=== PATIENT | male | born 1990 | race Two or more races ===

== ENCOUNTER 2019-06-09 20:39 | Inpatient (IN) | payer SELFPAY ==
[~2019-06-09] VITALS: Ht 177.8 cm; Wt 112.5 kg
--- NOTE | 2019-06-09 22:11 | Emergency Room Report ---
History of Present Illness General Chief Complaint: Upper Respiratory Illness Source: Patient Present Illness HPI Patient is a 28-year-old male presents after increased generalized weakness and cough. He reports having left-sided flank pain. Denies any hematuria or dysuria. Reports having frequent episodes of nonproductive cough with intermittent clear sputum. Reports having some generalized body aches. Denies any past medical history. Patient states that he had been sick since Tuesday.Denies any vomiting or diarrhea. Denies any abdominal pain. Allergies: Coded Allergies: No Known Allergies (Unverified , 06/09/19) Patient History Past Medical History: see triage record Reviewed Nursing Documentation: PMH: Agreed; PSxH: Agreed Nursing Documentation-PMH Past Medical History: No Stated History Review of Systems All Other Systems: negative except mentioned in HPI Physical Exam Vital Signs Date Time Temp Pulse Resp B/P (MAP) Pulse Ox O2 Delivery O2 Flow Rate FiO2 06/09/19 20:43 102.4 140 18 134/82 (99) 95 Room Air Sp02 EP Interpretation: reviewed, normal General Appearance: normal inspection, well appearing, no apparent distress, alert, GCS 15, non-toxic, obese Head: atraumatic ENT: normal ENT inspection, hearing grossly normal, normal voice Neck: normal inspection, full range of motion, supple, no bony tend Respiratory: normal inspection, no respiratory distress, no retraction Cardiovascular #1: no edema, tachycardia Gastrointestinal: normal inspection, normal bowel sounds, non tender, soft, no guarding, no hernia Genitourinary: no CVA tenderness Musculoskeletal: normal inspection, back normal, normal range of motion Neurologic: alert, motor strength/tone normal, director gift III-XII nml as tested, oriented x3, responsive, speech normal, normal inspection Psychiatric: normal inspection, judgement/insight normal, mood/affect normal Medical Decision Making Diagnostic Impression: Primary Impression: Pneumonia Additional Impression: Pleural effusion ER Course Patient presented for shortness of breath and chest pain. Differential diagnosis include was not limited to pneumonia, pulmonary embolism, viral pneumonia, myocardial infarction among others. Because of complexity of patient 's case laboratory tests and imaging studies were ordered. Patient noted to have initial tachycardia with fever. Chest x-ray showed left-sided infiltrate with pleural effusion. Patient was given IV fluids as well as antipyretics. He was given IV antibiotics after blood cultures were obtained. Chest CT was ordered to rule out pulmonary embolism and viral pneumonia. CT chest read by radiology showed loculated left-sided pleural effusion with associated infiltrate. Dr. Lee Fish was contacted for inpatient management. Dr. Fallon was contacted for surgical consult. Labs Test 06/09/19 22:25 White Blood Count 19.0 K/UL (4.8-10.8) Red Blood Count 4.95 M/UL (4.70-6.10) Hemoglobin 14.9 G/DL (14.2-18.0) Hematocrit 45.2 % (42.0-52.0) Mean Corpuscular Volume 91 FL (80-99) Mean Corpuscular Hemoglobin 30.0 PG (27.0-31.0) Mean Corpuscular Hemoglobin Concent 33.0 G/DL (32.0-36.0) Red Cell Distribution Width 12.4 % (11.6-14.8) Platelet Count 347 K/UL (150-450) Mean Platelet Volume 7.7 FL (6.5-10.1) Neutrophils (%) (Auto) % (45.0-75.0) Lymphocytes (%) (Auto) % (20.0-45.0) Monocytes (%) (Auto) % (1.0-10.0) Eosinophils (%) (Auto) % (0.0-3.0) Basophils (%) (Auto) % (0.0-2.0) Differential Total Cells Counted 100 Neutrophils % (Manual) 82 % (45-75) Lymphocytes % (Manual) 7 % (20-45) Monocytes % (Manual) 11 % (1-10) Eosinophils % (Manual) 0 % (0-3) Basophils % (Manual) 0 % (0-2) Band Neutrophils 0 % (0-8) Platelet Estimate Adequate Platelet Morphology Normal Red Blood Cell Morphology Normal Sodium Level 135 MMOL/L (136-145) Potassium Level 3.6 MMOL/L (3.5-5.1) Chloride Level 94 MMOL/L (98-107) Carbon Dioxide Level 29 MMOL/L (21-32) Anion Gap 12 mmol/L (5-15) Blood Urea Nitrogen 8 mg/dL (7-18) Creatinine 1.2 MG/DL (0.55-1.30) Estimat Glomerular Filtration Rate > 60 mL/min (>60) Glucose Level 162 MG/DL (74-106) Lactic Acid Level 1.40 mmol/L (0.4-2.0) Calcium Level 9.3 MG/DL (8.5-10.1) Total Bilirubin 2.4 MG/DL (0.2-1.0) Direct Bilirubin 0.4 MG/DL (0.0-0.3) Aspartate Amino Transf (AST/SGOT) 11 U/L (15-37) Alanine Aminotransferase (ALT/SGPT) < 6 U/L (12-78) Alkaline Phosphatase 69 U/L (46-116) Total Creatine Kinase 105 U/L (26-308) Creatine Kinase MB < 0.5 NG/ML (0.0-3.6) Creatine Kinase MB Relative Index 0.4 Troponin I 0.000 ng/mL (0.000-0.056) Total Protein 8.8 G/DL (6.4-8.2) Albumin 3.3 G/DL (3.4-5.0) Globulin 5.5 g/dL Albumin/Globulin Ratio 0.6 (1.0-2.7) EKG Diagnostic Results Rate: tachycardiac Rhythm: NSR ST Segments: no acute changes Last Vital Signs Date Time Temp Pulse Resp B/P (MAP) Pulse Ox O2 Delivery O2 Flow Rate FiO2 06/09/19 20:43 102.4 140 18 134/82 (99) 95 Room Air Status: unchanged Disposition: ADMITTED INPATIENT Condition: Serious Scripts No Active Prescriptions or Reported Meds Yossi Quintero MD Jun 09, 2019 22:11
[2019-06-09 22:40] LABS: HEMATOCRIT 45.2 % (42.0-52.0); HEMOGLOBIN 14.9 G/DL (14.2-18.0); MEAN CORPUSCULAR VOLUME 91 FL (80-99); PLATELET COUNT 347 K/UL (150-450); RED BLOOD COUNT 4.95 M/UL (4.70-6.10); RED CELL DISTRIBUTION WIDTH 12.4 % (11.6-14.8)
[2019-06-09 23:00] VITALS: BP 126/79
[2019-06-09 23:00] LABS: ANION GAP 12 mmol/L (5-15); BLOOD UREA NITROGEN 8 mg/dL (7-18); CALCIUM 9.3 MG/DL (8.5-10.1); CARBON DIOXIDE 29 MMOL/L (21-32); CHLORIDE 94 MMOL/L (98-107); CREATININE 1.2 MG/DL (0.55-1.30); POTASSIUM 3.6 MMOL/L (3.5-5.1); SODIUM 135 MMOL/L (136-145)
[2019-06-09] MEDS ORDERED: Azithromycin 500 MG in D5W 275 ML IVPB ONE (23:00)
[2019-06-09] MEDS ORDERED: cefTRIAXone 1 GM in NS 55 ML IVPB ONE (23:00)
[2019-06-09] MEDS ORDERED: Omnipaque 350 100ml vial INJ PRN (23:00)
[2019-06-09 23:14] LABS: ALBUMIN 3.3 G/DL (3.4-5.0); ALBUMIN/GLOBULIN RATIO 0.6 (1.0-2.7); ALKALINE PHOSPHATASE 69 U/L (46-116); ASPARTATE AMINO TRANSFERASE 11 U/L (15-37); BILIRUBIN,TOTAL 2.4 MG/DL (0.2-1.0); CKMB < 0.5 NG/ML (0.0-3.6); CREATINE KINASE 105 U/L (26-308)
[2019-06-09 23:18] LABS: ALANINE AMINOTRANSFERASE < 6 U/L (12-78); BILIRUBIN,DIRECT 0.4 MG/DL (0.0-0.3)
--- NOTE | 2019-06-09 23:44 | Diagnostic Imaging Report ---
EXAM: XR Chest, 1 View CLINICAL HISTORY: SOB TECHNIQUE: Frontal view of the chest. COMPARISON: None. FINDINGS: Lungs: The lungs are underexpanded. Patchy opacity and air bronchograms consistent with pneumonia. Pleural space: Clear right hemithorax. No right-sided effusion. Mild to moderate left-sided pleural effusion . No pneumothorax. Heart: Unremarkable. No cardiomegaly. Mediastinum: Unremarkable. Bones/joints: Unremarkable. IMPRESSION: Left lower lobe pneumonia with left effusion as described.
--- NOTE | 2019-06-10 00:32 | Diagnostic Imaging Report ---
EXAM: CT Angiography Chest With Intravenous Contrast CLINICAL HISTORY: CP TECHNIQUE: Axial computed tomographic angiography images of the chest with intravenous contrast using pulmonary embolism protocol. CTDI is 49.4 mGy and DLP is 487.7 mGy-cm. One or more of the following dose reduction techniques were used: automated exposure control, adjustment of the mA and/or kV according to patient size, use of iterative reconstruction technique. MIP reconstructed images were created and reviewed. COMPARISON: None. FINDINGS: Pulmonary arteries: Normal enhancement of the vascular structures were no filling defect to suggest pulmonary embolus or aortic dissection. Normal aorta with no aneurysmal dilatation. Aorta: No acute findings. No thoracic aortic aneurysm. Lungs: Lung ibarra reveal minimal posterior subpleural scarring versus atelectasis otherwise normal right hemithorax. Pleural space: There is a loculated left-sided pleural effusion with left lower lobe consolidation and air bronchograms consistent with pneumonia. There is left posterior, left paraspinal, subpleural atelectasis or mass seen on images 104 through 124. Remainder of the left lung field including left upper lobe are clear. Heart: Unremarkable. No cardiomegaly. No significant pericardial effusion. No evidence of RV dysfunction. Bones/joints: No acute fracture. No dislocation. Soft tissues: Unremarkable. Lymph nodes: Unremarkable. No enlarged lymph nodes. Upper abdomen: Diffuse fatty liver. Diverticulosis of the colon with no signs of diverticulitis. The remainder of the visualized upper abdominal structures are unremarkable. IMPRESSION: 1. No pulmonary embolus or aortic dissection. 2. Loculated left-sided pleural effusion with left lower lobe infiltrate and associated areas of atelectasis along the subpleural spaces, difficult to exclude a mass. Follow-up with CT in 3-4 months following treatment recommended to evaluate resolution. 3. Diffuse fatty liver. Diverticulosis with no signs of diverticulitis.
[2019-06-10] MEDS ORDERED: Vancomycin 1.5gm/NS Premix 275 ML IVPB SCH (00:45)
[2019-06-10] MEDS ORDERED: Vancomycin 1.5gm vial IVPB ONE (00:56)
[2019-06-10 03:00] VITALS: BP 123/91
[2019-06-10 05:00] VITALS: BP 119/74
[2019-06-10] MEDS ORDERED: Albuterol/Ipratropium 3ml neb HHN PRN ×2 (07:45)
[2019-06-10] MEDS ORDERED: DiphenhydrAMINE 25mg Tab ORAL PRN (07:45)
[2019-06-10] MEDS ORDERED: HYDROcodone/Acetamin 5/325 tab ORAL PRN (07:45)
[2019-06-10 08:00] VITALS: BP 134/79
[2019-06-10 09:29] LABS: HEMATOCRIT 40.8 % (42.0-52.0); MEAN CORPUSCULAR VOLUME 88 FL (80-99); PLATELET COUNT 334 K/UL (150-450); RED BLOOD COUNT 4.62 M/UL (4.70-6.10); RED CELL DISTRIBUTION WIDTH 10.9 % (11.6-14.8); WHITE BLOOD COUNT 16.7 K/UL (4.8-10.8)
[2019-06-10] MEDS: Heparin 5000 units/ml inj SUBQ SCH ×2 (09:37→21:00)
[2019-06-10] MEDS: Vancomycin 1.25gm/NS Premix q24h IVPB SCH ×2 (09:39→17:10)
[2019-06-10 12:00] VITALS: BP 138/77
--- NOTE | 2019-06-10 12:43 | Consultation ---
History of Present Illness General Date patient seen: Jun 10, 2019 Reason for Hospitalization: Upper Respiratory Illness Present Illness HPI This is a pleasant 28-year-old male who had a upper respiratory infection in May 2019 and since has persistent productive cough presented to emergency room at [facility] complaining of left-sided chest and back pain. In ED CT scan performed identified pneumonia with loculated collection. Admitted further care management. Surgery called to evaluate. Patient seen, patient evaluated, chart reviewed. Allergies: Coded Allergies: No Known Allergies (Unverified , 06/09/19) Medication History No Active Prescriptions or Reported Meds Patient History History Provided By: Patient, PMD Healthcare decision maker Resuscitation status Full Code Advanced Directive on File Past Medical/Surgical History Past Medical/Surgical History: (1) Pleural effusion (2) Pneumonia Review of Systems Review of Symptoms General ROS: no weight loss or fever Psychological ROS: no depression or mood changes, no memory loss Ophthalmic ROS: no visual changes or eye irritation ENT ROS: no nasal congestion, hearing loss, dizziness Allergy and Immunology ROS: no allergic symptoms or urticaria Hematological and Lymphatic ROS: no swollen glands, unusual bleeding or bruising Endocrine ROS: no polyuria, polydipsia, weight changes, temperature intolerance Respiratory ROS: no cough, shortness of breath, or wheezing Cardiovascular ROS: no chest pain or dyspnea on exertion Gastrointestinal ROS: denies abdominal pain, bright red blood in stool. Musculoskeletal ROS: no myalgias or arthralgias Neurological ROS: no TIA or stroke symptoms Dermatological ROS: no new or changing skin lesions, rashes or pruritis Physical Exam Physical Exam General appearance: alert, cooperative, no distress, appears stated age Head: Normocephalic, without obvious abnormality, atraumatic Eyes: conjunctivae/corneas clear. PERRL, EOM's intact. Fundi benign Throat: Lips, mucosa, and tongue normal. Teeth and gums normal Neck: supple, symmetrical, trachea midline, no adenopathy, thyroid: not enlarged, symmetric, no tenderness/mass/nodules, no carotid bruit and no JVD Lungs: clear to auscultation bilaterally Heart: regular rate and rhythm, S1, S2 normal, no murmur, click, rub or gallop Abdomen: soft, non-tender. Bowel sounds normal. No masses, no organomegaly Extremities: extremities normal, atraumatic, no cyanosis or edema Pulses: 2+ and symmetric Skin: Skin color, texture, turgor normal. No rashes or lesions Neurologic: Grossly normal Last 24 Hour Vital Signs Date Time Temp Pulse Resp B/P (MAP) Pulse Ox O2 Delivery O2 Flow Rate FiO2 06/10/19 12:00 96.6 103 19 138/77 (97) 98 06/10/19 11:40 135 06/10/19 09:00 Room Air 06/10/19 08:00 97.6 102 18 134/79 (97) 96 06/10/19 07:59 115 06/10/19 06:49 111 06/10/19 06:00 Room Air 06/10/19 06:00 98.4 101 18 119/74 94 Room Air 06/10/19 05:00 98.4 101 18 119/74 94 Room Air 06/10/19 03:00 99.4 82 18 123/91 95 Room Air 06/09/19 23:25 100.0 06/09/19 23:00 100.8 18 126/79 94 Room Air 06/09/19 21:30 140 18 Room Air 06/09/19 20:43 102.4 140 18 134/82 (99) 95 Room Air Intake and Output 06/09/19 06/10/19 19:00 07:00 Intake Total 120 ml Balance 120 ml Intake Oral 120 ml Laboratory Tests Test 06/09/19 22:25 06/10/19 09:00 White Blood Count 19.0 K/UL (4.8-10.8) H 16.7 K/UL (4.8-10.8) H Red Blood Count 4.95 M/UL (4.70-6.10) 4.62 M/UL (4.70-6.10) L Hemoglobin 14.9 G/DL (14.2-18.0) 14.0 G/DL (14.2-18.0) L Hematocrit 45.2 % (42.0-52.0) 40.8 % (42.0-52.0) L Mean Corpuscular Volume 91 FL (80-99) 88 FL (80-99) Mean Corpuscular Hemoglobin 30.0 PG (27.0-31.0) 30.2 PG (27.0-31.0) Mean Corpuscular Hemoglobin Concent 33.0 G/DL (32.0-36.0) 34.2 G/DL (32.0-36.0) Red Cell Distribution Width 12.4 % (11.6-14.8) 10.9 % (11.6-14.8) L Platelet Count 347 K/UL (150-450) 334 K/UL (150-450) Mean Platelet Volume 7.7 FL (6.5-10.1) 6.8 FL (6.5-10.1) Neutrophils (%) (Auto) % (45.0-75.0) % (45.0-75.0) Lymphocytes (%) (Auto) % (20.0-45.0) % (20.0-45.0) Monocytes (%) (Auto) % (1.0-10.0) % (1.0-10.0) Eosinophils (%) (Auto) % (0.0-3.0) % (0.0-3.0) Basophils (%) (Auto) % (0.0-2.0) % (0.0-2.0) Differential Total Cells Counted 100 Neutrophils % (Manual) 82 % (45-75) H Pending Lymphocytes % (Manual) 7 % (20-45) L Pending Monocytes % (Manual) 11 % (1-10) H Eosinophils % (Manual) 0 % (0-3) Basophils % (Manual) 0 % (0-2) Band Neutrophils 0 % (0-8) Platelet Estimate Adequate Pending Platelet Morphology Normal Pending Red Blood Cell Morphology Normal Sodium Level 135 MMOL/L (136-145) L Potassium Level 3.6 MMOL/L (3.5-5.1) Chloride Level 94 MMOL/L (98-107) L Carbon Dioxide Level 29 MMOL/L (21-32) Anion Gap 12 mmol/L (5-15) Blood Urea Nitrogen 8 mg/dL (7-18) Creatinine 1.2 MG/DL (0.55-1.30) Estimat Glomerular Filtration Rate > 60 mL/min (>60) Glucose Level 162 MG/DL (74-106) H Lactic Acid Level 1.40 mmol/L (0.4-2.0) Calcium Level 9.3 MG/DL (8.5-10.1) Total Bilirubin 2.4 MG/DL (0.2-1.0) H Direct Bilirubin 0.4 MG/DL (0.0-0.3) H Aspartate Amino Transf (AST/SGOT) 11 U/L (15-37) L Alanine Aminotransferase (ALT/SGPT) < 6 U/L (12-78) L Alkaline Phosphatase 69 U/L (46-116) Total Creatine Kinase 105 U/L (26-308) Creatine Kinase MB < 0.5 NG/ML (0.0-3.6) Creatine Kinase MB Relative Index 0.4 Troponin I 0.000 ng/mL (0.000-0.056) Total Protein 8.8 G/DL (6.4-8.2) H Albumin 3.3 G/DL (3.4-5.0) L Globulin 5.5 g/dL Albumin/Globulin Ratio 0.6 (1.0-2.7) L Pro-B-Type Natriuretic Peptide 19 pg/mL (0-125) Microbiology Date/Time Source Procedure Growth Status 06/09/19 22:25 Nasal Nares - Final Complete 06/09/19 22:25 Nasal Nares - Final Complete Height (Feet): 5 Height (Inches): 10.00 Weight (Pounds): 254 Medications Current Medications Medications (Trade) Dose Ordered Sig/Thiago Route PRN Reason Start Time Stop Time Status Last Admin Dose Admin Acetaminophen (Tylenol) 650 mg Q6H PRN ORAL Mild Pain/Temp > 100.5 06/10/19 07:45 07/10/19 07:44 Acetaminophen/ Hydrocodone Bitart ([place] 5/325) 1 tab Q6H PRN ORAL For severe Pain 06/10/19 07:45 06/17/19 07:44 Albuterol/ Ipratropium (Albuterol/ Ipratropium) 3 ml Q6HRT PRN HHN Shortness of Breath 06/10/19 07:45 06/15/19 07:44 Azithromycin 500 mg/Dextrose 275 ml @ 275 mls/hr Q24H IV 06/10/19 22:00 06/16/19 22:59 Ceftriaxone Sodium 1 gm/ Dextrose 55 ml @ 110 mls/hr Q24H IVPB 06/10/19 21:00 06/17/19 20:59 Diphenhydramine HCl (Benadryl) 25 mg Q6H PRN ORAL itching 06/10/19 07:45 07/10/19 07:44 Heparin Sodium (Porcine) (Heparin 5000 units/ml) 5,000 units EVERY 12 HOURS SUBQ 06/10/19 09:00 07/10/19 08:59 06/10/19 09:37 Iohexol (Omnipaque 350 100ml) 100 ml NOW PRN INJ Radiology Procedure 06/09/19 23:00 06/11/19 22:49 Metronidazole 100 ml @ 100 mls/hr Q8H IVPB 06/10/19 12:00 06/17/19 11:59 06/10/19 11:44 Ondansetron HCl (Zofran) 4 mg Q6H PRN IVP Nausea & Vomiting 06/10/19 07:45 07/10/19 07:44 Vancomycin HCl (Vanco rx to dose) 1 ea DAILY MISC 06/10/19 09:00 07/10/19 08:59 06/10/19 09:00 Vancomycin/Sodium Chloride 275 ml @ 183.333 mls/hr Q8H IVPB 06/10/19 09:00 06/15/19 08:59 06/10/19 09:39 Assessment/Plan Problem List: (1) Pleural effusion Assessment & Plan: Pulmonary arteries: Normal enhancement of the vascular structures were no filling defect to suggest pulmonary embolus or aortic dissection. Normal aorta with no aneurysmal dilatation. Aorta: No acute findings. No thoracic aortic aneurysm. Lungs: Lung ibarra reveal minimal posterior subpleural scarring versus atelectasis otherwise normal right hemithorax. Pleural space: There is a loculated left-sided pleural effusion with left lower lobe consolidation and air bronchograms consistent with pneumonia. There is left posterior, left paraspinal, subpleural atelectasis or mass seen on images 104 through 124. Remainder of the left lung field including left upper lobe are clear. Heart: Unremarkable. No cardiomegaly. No significant pericardial effusion. No evidence of RV dysfunction. Bones/joints: No acute fracture. No dislocation. Soft tissues: Unremarkable. Lymph nodes: Unremarkable. No enlarged lymph nodes. Upper abdomen: Diffuse fatty liver. Diverticulosis of the colon with no signs of diverticulitis. The remainder of the visualized upper abdominal structures are unremarkable. IMPRESSION: 1. No pulmonary embolus or aortic dissection. 2. Loculated left-sided pleural effusion with left lower lobe infiltrate and associated areas of atelectasis along the subpleural spaces, difficult to exclude a mass. Follow-up with CT in 3-4 months following treatment recommended to evaluate resolution. 3. Diffuse fatty liver. Diverticulosis with no signs of diverticulitis. ICD Codes: J90 - Pleural effusion, not elsewhere classified SNOMED: [id number] (2) Pneumonia Assessment & Plan: IV antibiotics Okay for diet CT reviewed personally Case discussed with patient and medical teams We will plan for radiological sampling/drainage of left-sided effusion if unable to will plan for chest tube placement Thank you will follow with recommendations ICD Codes: J18.9 - Pneumonia, unspecified organism SNOMED: [id number] Jeet Fallon Jun 10, 2019 12:43
[2019-06-10 13:41] LABS: APPEARANCE,URINE SLIGHTLY CLOUDY; BILIRUBIN, URINE 1+ (NEGATIVE); COLOR,URINE BROWN; GLUCOSE, URINE (UA) NEGATIVE (NEGATIVE); KETONES,URINE 2+ (NEGATIVE); NITRITE,URINE NEGATIVE (NEGATIVE); PH,URINE 6 (4.5-8.0); PROTEIN,URINE 2+ (NEGATIVE); UROBILINOGEN,URINE 8 MG/DL (0.0-1.0)
[2019-06-10 13:53] LABS: LEUKOCYTE ESTERASE ,URINE TRACE (NEGATIVE)
[2019-06-10] MEDS: NS 250 ML IV SCH ×4 (15:10→15:33)
--- NOTE | 2019-06-10 15:57 | History & Physical ---
History and Physical History & Physicial History and Physical HPI Patient is a 28-year-old male presents after increased generalized weakness and cough, left-sided pleuritic chest and flank pain. Denies any hematuria or dysuria. Reports having frequent episodes of nonproductive cough with intermittent clear sputum. Reports having some generalized body aches. Denies any past medical history. Patient states that he had been sick since Tuesday.Denies any vomiting or diarrhea. Denies any abdominal pain. Denies travel history. No hemoptysis. Allergies: No Known Allergies Past Medical History: No Stated History All Other Systems: negative except mentioned in HPI FH: NC SH: NC ROS: Negative aside from above Physical Exam Vital SignsNoted Date Time Temp Pulse Resp B/P (MAP) Pulse Ox O2 Delivery O2 Flow Rate FiO2 06/09/19 20:43 102.4 140 18 134/82 (99) 95 Room Air General Appearance: normal inspection, well appearing, no apparent distress, alert, GCS 15, non-toxic, obese Head: atraumatic ENT: normal ENT inspection, hearing grossly normal, normal voice Neck: normal inspection, full range of motion, supple, no bony tend Respiratory: normal inspection, lungs clear, reducedl breath sounds LLZ, no respiratory distress, no retraction, no wheezing Cardiovascular : regular rate, rhythm, HS1, HS2 normal, no edema Gastrointestinal: normal inspection, normal bowel sounds, non tender, soft, no guarding, no hernia Genitourinary: no CVA tenderness Musculoskeletal: normal inspection, back normal, normal range of motion Neurologic: alert, motor strength/tone normal, pillowcase turner III-XII nml as tested, oriented x3, responsive, speech normal, normal inspection Impression: Pneumonia Pleural effusion - possibly loculated on CT Tachycardia - sinus on EKG Plan: IV AB O2 PRN Incentive spirometer Thoracentesis Surgical Consultation for possible chest tube Monitor labs Cardiology consult given intermittent tachycardia PPX Monitor labs Labs Test 06/09/19 22:25 White Blood Count 19.0 K/UL (4.8-10.8) Red Blood Count 4.95 M/UL (4.70-6.10) Hemoglobin 14.9 G/DL (14.2-18.0) Hematocrit 45.2 % (42.0-52.0) Mean Corpuscular Volume 91 FL (80-99) Mean Corpuscular Hemoglobin 30.0 PG (27.0-31.0) Mean Corpuscular Hemoglobin Concent 33.0 G/DL (32.0-36.0) Red Cell Distribution Width 12.4 % (11.6-14.8) Platelet Count 347 K/UL (150-450) Mean Platelet Volume 7.7 FL (6.5-10.1) Neutrophils (%) (Auto) % (45.0-75.0) Lymphocytes (%) (Auto) % (20.0-45.0) Monocytes (%) (Auto) % (1.0-10.0) Eosinophils (%) (Auto) % (0.0-3.0) Basophils (%) (Auto) % (0.0-2.0) Differential Total Cells Counted 100 Neutrophils % (Manual) 82 % (45-75) Lymphocytes % (Manual) 7 % (20-45) Monocytes % (Manual) 11 % (1-10) Eosinophils % (Manual) 0 % (0-3) Basophils % (Manual) 0 % (0-2) Band Neutrophils 0 % (0-8) Platelet Estimate Adequate Platelet Morphology Normal Red Blood Cell Morphology Normal Sodium Level 135 MMOL/L (136-145) Potassium Level 3.6 MMOL/L (3.5-5.1) Chloride Level 94 MMOL/L (98-107) Carbon Dioxide Level 29 MMOL/L (21-32) Anion Gap 12 mmol/L (5-15) Blood Urea Nitrogen 8 mg/dL (7-18) Creatinine 1.2 MG/DL (0.55-1.30) Estimat Glomerular Filtration Rate > 60 mL/min (>60) Glucose Level 162 MG/DL (74-106) Lactic Acid Level 1.40 mmol/L (0.4-2.0) Calcium Level 9.3 MG/DL (8.5-10.1) Total Bilirubin 2.4 MG/DL (0.2-1.0) Direct Bilirubin 0.4 MG/DL (0.0-0.3) Aspartate Amino Transf (AST/SGOT) 11 U/L (15-37) Alanine Aminotransferase (ALT/SGPT) < 6 U/L (12-78) Alkaline Phosphatase 69 U/L (46-116) Total Creatine Kinase 105 U/L (26-308) Creatine Kinase MB < 0.5 NG/ML (0.0-3.6) Creatine Kinase MB Relative Index 0.4 Troponin I 0.000 ng/mL (0.000-0.056) Total Protein 8.8 G/DL (6.4-8.2) Albumin 3.3 G/DL (3.4-5.0) Globulin 5.5 g/dL Albumin/Globulin Ratio 0.6 (1.0-2.7) EKG: ST CT Angio: No PE, Left consolidation, effusion Moody Dowd MD Jun 10, 2019 15:57
[2019-06-10 16:00] VITALS: BP 140/75
[2019-06-10 20:00] VITALS: BP 133/81
[2019-06-10] MEDS: NS w/KCl 20mEq 1000ml 1,000 ML IV SCH (21:19)
[2019-06-10] MEDS: cefTRIAXone 1 GM in D5W 55 ML IVPB SCH (21:19)
[2019-06-10] MEDS: Azithromycin 500 MG in D5W 275 ML IV SCH (22:12)
[2019-06-11] VITALS: BP 121/78
[2019-06-11] MEDS: Vancomycin 1.25gm/NS Premix q24h IVPB SCH ×3 (00:37→16:59)
--- NOTE | 2019-06-11 02:30 | Consultation ---
DATE OF CONSULTATION: 06/10/2019 CARDIOLOGY CONSULTATION CONSULTING PHYSICIAN: Moody López M.D. REQUESTING PHYSICIANS: 1. Lee Fish M.D. 2. Moody Dowd M.D. REASON FOR CONSULTATION: Tachycardia. HISTORY OF PRESENT ILLNESS: This is a 28-year-old male, presented to the hospital with cough and weakness as well as chest pain. He described it as left-sided and sharp and associated with his coughing spells. He denied any nausea, vomiting, or abdominal pain. He has had generalized body aches. He has been sick for five to six days. Concern has been raised over a rapid heart rate. PAST MEDICAL HISTORY: Otherwise unremarkable. ALLERGIES: None. MEDICATIONS: None. FAMILY HISTORY: Noncontributory. SOCIAL HISTORY: Negative for smoking, alcohol, or substance abuse. REVIEW OF SYSTEMS: No history of rheumatic heart disease, cardiac arrhythmias, or congenital heart disease. PHYSICAL EXAMINATION: VITAL SIGNS: Blood pressure 134/82, heart rate 140, respiratory rate 18, temperature 102.4, and room air oxygen saturation 95%. HEENT: Normocephalic and atraumatic. Conjunctivae are pink. Oropharynx is clear. NECK: Supple. LUNGS: Clear. CARDIAC: Regular rhythm. Rapid rate. Normal S1 and S2. ABDOMEN: Soft and nontender. EXTREMITIES: No edema. LABORATORY AND DIAGNOSTIC DATA: CT angiogram of the chest was negative for pulmonary embolus, but revealed left lower lobe consolidation with possibly loculated effusion. White count 19 and hemoglobin 14.9. BUN 8, creatinine 1.2, potassium 3.6, sodium 136, bicarbonate 29, and glucose 162. Troponin negative. Albumin 3.3. EKG with sinus tachycardia and no acute abnormalities otherwise. IMPRESSION: 1. Sepsis. 2. Pneumonia with parapneumonic effusion. 3. Secondary sinus tachycardia. 4. Fevers. 5. Hypovolemia and dehydration. PLAN: 1. Volume support. 2. Antimicrobials. 3. 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 4. DVT prophylaxis. 5. No role for antiarrhythmics. Moody López M.D. DR: LAURITA JOB#: [id number] CC:
[2019-06-11] MEDS: NS w/KCl 20mEq 1000ml 1,000 ML IV SCH ×3 (03:47→20:49)
[2019-06-11 04:00] VITALS: BP 137/76
[2019-06-11 08:00] VITALS: BP 137/76
[2019-06-11 08:12] LABS: BASOPHILS % (AUTO) 0.7 % (0.0-2.0); EOSINOPHILS % (AUTO) 0.4 % (0.0-3.0); HEMATOCRIT 36.5 % (42.0-52.0); HEMOGLOBIN 12.5 G/DL (14.2-18.0); LYMPHOCYTES % (AUTO) 5.3 % (20.0-45.0); MEAN CORPUSCULAR VOLUME 89 FL (80-99); MONOCYTES % (AUTO) 10.3 % (1.0-10.0); NEUTROPHILS % (AUTO) 83.3 % (45.0-75.0); PLATELET COUNT 275 K/UL (150-450); RED BLOOD COUNT 4.07 M/UL (4.70-6.10); RED CELL DISTRIBUTION WIDTH 11.4 % (11.6-14.8); WHITE BLOOD COUNT 17.4 K/UL (4.8-10.8)
--- NOTE | 2019-06-11 08:28 | General Progress Note ---
Assessment/Plan Assessment/Plan: tachycardia loculated pleural effusion pneumonia leukocytosis possible sepsis PLAN iv antibiotics monitor Ct q 3 months follow up cultures ID evaluation impression, plan, and exam edited and reviewed in detail care discussed with RN Subjective Allergies: Coded Allergies: No Known Allergies (Unverified , 06/09/19) Subjective care noted cards appreciated Objective Last 24 Hour Vital Signs Date Time Temp Pulse Resp B/P (MAP) Pulse Ox O2 Delivery O2 Flow Rate FiO2 06/11/19 08:00 134 06/11/19 08:00 97.2 135 18 137/76 (96) 95 06/11/19 04:00 98.4 114 20 137/76 (96) 96 06/11/19 04:00 105 06/11/19 01:00 98.6 06/11/19 00:00 124 06/11/19 00:00 101.7 143 20 121/78 (92) 95 06/10/19 21:00 Room Air 06/10/19 20:05 127 20 98 Room Air 21 06/10/19 20:00 98.6 130 20 133/81 (98) 94 06/10/19 20:00 159 06/10/19 16:10 127 06/10/19 16:00 98.6 135 20 140/75 (96) 96 06/10/19 12:00 96.6 103 19 138/77 (97) 98 06/10/19 11:40 135 06/10/19 09:00 Room Air Intake and Output 06/10/19 06/11/19 19:00 07:00 Intake Total 640 ml 120 ml Output Total 1500 ml Balance 640 ml -1380 ml Intake Oral 640 ml 120 ml Output Urine Total 1500 ml # Voids 5 4 Laboratory Tests 06/10/19 09:00: White Blood Count 16.7H, Red Blood Count 4.62L, Hemoglobin 14.0L, Hematocrit 40.8L, Mean Corpuscular Volume 88, Mean Corpuscular Hemoglobin 30.2, Mean Corpuscular Hemoglobin Concent 34.2, Red Cell Distribution Width 10.9L, Platelet Count 334, Mean Platelet Volume 6.8, Neutrophils (%) (Auto) , Lymphocytes (%) (Auto) , Monocytes (%) (Auto) , Eosinophils (%) (Auto) , Basophils (%) (Auto) , Differential Total Cells Counted 100, Neutrophils % ( Manual) 86H, Lymphocytes % (Manual) 7L, Monocytes % (Manual) 5, Eosinophils % ( Manual) 0, Basophils % (Manual) 0, Band Neutrophils 2, Platelet Estimate Adequate, Platelet Morphology Normal, Red Blood Cell Morphology Normal, Pro-B- Type Natriuretic Peptide 19 06/11/19 06:54: White Blood Count 17.4H, Red Blood Count 4.07L, Hemoglobin 12.5L, Hematocrit 36.5L, Mean Corpuscular Volume 89, Mean Corpuscular Hemoglobin 30.6, Mean Corpuscular Hemoglobin Concent 34.2, Red Cell Distribution Width 11.4L, Platelet Count 275, Mean Platelet Volume 7.2, Neutrophils (%) (Auto) 83.3H, Lymphocytes (%) (Auto) 5.3L, Monocytes (%) (Auto) 10.3H, Eosinophils (%) (Auto) 0.4, Basophils (%) (Auto) 0.7, Pro-B-Type Natriuretic Peptide [Pending], Erythrocyte Sedimentation Rate [Pending], Prothrombin Time [Pending], Prothromb Time International Ratio [Pending], Activated Partial Thromboplast Time [Pending ], Sodium Level [Pending], Potassium Level [Pending], Chloride Level [Pending], Carbon Dioxide Level [Pending], Blood Urea Nitrogen [Pending], Creatinine [ Pending], Estimat Glomerular Filtration Rate [Pending], Glucose Level [Pending] , Calcium Level [Pending], Total Bilirubin [Pending], Aspartate Amino Transf ( AST/SGOT) [Pending], Alanine Aminotransferase (ALT/SGPT) [Pending], Alkaline Phosphatase [Pending], Troponin I [Pending], C-Reactive Protein, Quantitative [ Pending], Total Protein [Pending], Albumin [Pending], Globulin [Pending] Height (Feet): 5 Height (Inches): 10.00 Weight (Pounds): 254 Objective WDWN NAD reduced breath sounds bilaterally without rhonchi or wheeze S1S2RR tachy without MRG NABS nontender no HSM no CCE nonfocal Lee Fish MD Jun 11, 2019 08:28
[2019-06-11 08:30] LABS: INR 1.1 (0.9-1.1)
[2019-06-11 08:35] LABS: ALANINE AMINOTRANSFERASE 18 U/L (12-78); ALBUMIN 2.2 G/DL (3.4-5.0); ALBUMIN/GLOBULIN RATIO 0.4 (1.0-2.7); ALKALINE PHOSPHATASE 59 U/L (46-116); ANION GAP 12 mmol/L (5-15); ASPARTATE AMINO TRANSFERASE 12 U/L (15-37); BLOOD UREA NITROGEN 6 mg/dL (7-18); CALCIUM 8.7 MG/DL (8.5-10.1); CARBON DIOXIDE 25 MMOL/L (21-32); CHLORIDE 101 MMOL/L (98-107); POTASSIUM 3.3 MMOL/L (3.5-5.1); SODIUM 138 MMOL/L (136-145)
[2019-06-11] MEDS: Heparin 5000 units/ml inj SUBQ SCH ×2 (09:00→21:00)
[2019-06-11] MEDS ORDERED: Lidocaine 1% Plain 30 ml INJ ONE (11:00)
[2019-06-11 12:00] VITALS: BP 150/79
--- NOTE | 2019-06-11 12:04 | Surgery Progress Note ---
Surgery Progress Note Subjective Additional Comments Leukocytosis States that he feels better today no nausea vomiting fever chills otherwise comfortable Objective Last 24 Hour Vital Signs Date Time Temp Pulse Resp B/P (MAP) Pulse Ox O2 Delivery O2 Flow Rate FiO2 06/11/19 08:25 Room Air 06/11/19 08:00 134 06/11/19 08:00 97.2 135 18 137/76 (96) 95 06/11/19 04:00 98.4 114 20 137/76 (96) 96 06/11/19 04:00 105 06/11/19 01:00 98.6 06/11/19 00:00 124 06/11/19 00:00 101.7 143 20 121/78 (92) 95 06/10/19 21:00 Room Air 06/10/19 20:05 127 20 98 Room Air 21 06/10/19 20:00 98.6 130 20 133/81 (98) 94 06/10/19 20:00 159 06/10/19 16:10 127 06/10/19 16:00 98.6 135 20 140/75 (96) 96 I&O Intake and Output 06/10/19 06/11/19 19:00 07:00 Intake Total 640 ml 120 ml Output Total 1500 ml Balance 640 ml -1380 ml Intake Oral 640 ml 120 ml Output Urine Total 1500 ml # Voids 5 4 Cardiovascular: RSR Respiratory: clear Abdomen: soft, flat, non-tender, present bowel sounds Extremities: no edema, no tenderness, no cyanosis Laboratory Tests Test 06/11/19 06:54 White Blood Count 17.4 K/UL (4.8-10.8) H Red Blood Count 4.07 M/UL (4.70-6.10) L Hemoglobin 12.5 G/DL (14.2-18.0) L Hematocrit 36.5 % (42.0-52.0) L Mean Corpuscular Volume 89 FL (80-99) Mean Corpuscular Hemoglobin 30.6 PG (27.0-31.0) Mean Corpuscular Hemoglobin Concent 34.2 G/DL (32.0-36.0) Red Cell Distribution Width 11.4 % (11.6-14.8) L Platelet Count 275 K/UL (150-450) Mean Platelet Volume 7.2 FL (6.5-10.1) Neutrophils (%) (Auto) 83.3 % (45.0-75.0) H Lymphocytes (%) (Auto) 5.3 % (20.0-45.0) L Monocytes (%) (Auto) 10.3 % (1.0-10.0) H Eosinophils (%) (Auto) 0.4 % (0.0-3.0) Basophils (%) (Auto) 0.7 % (0.0-2.0) Erythrocyte Sedimentation Rate 67 MM/HR (0-15) H Prothrombin Time 11.3 SEC (9.30-11.50) Prothromb Time International Ratio 1.1 (0.9-1.1) Activated Partial Thromboplast Time 39 SEC (23-33) H Sodium Level 138 MMOL/L (136-145) Potassium Level 3.3 MMOL/L (3.5-5.1) L Chloride Level 101 MMOL/L (98-107) Carbon Dioxide Level 25 MMOL/L (21-32) Anion Gap 12 mmol/L (5-15) Blood Urea Nitrogen 6 mg/dL (7-18) L Creatinine 1.0 MG/DL (0.55-1.30) Estimat Glomerular Filtration Rate > 60 mL/min (>60) Glucose Level 102 MG/DL (74-106) Calcium Level 8.7 MG/DL (8.5-10.1) Total Bilirubin 1.0 MG/DL (0.2-1.0) Aspartate Amino Transf (AST/SGOT) 12 U/L (15-37) L Alanine Aminotransferase (ALT/SGPT) 18 U/L (12-78) Alkaline Phosphatase 59 U/L (46-116) Troponin I 0.000 ng/mL (0.000-0.056) C-Reactive Protein, Quantitative 42.4 mg/dL (0.00-0.90) H Pro-B-Type Natriuretic Peptide 29 pg/mL (0-125) Total Protein 7.1 G/DL (6.4-8.2) Albumin 2.2 G/DL (3.4-5.0) L Globulin 4.9 g/dL Albumin/Globulin Ratio 0.4 (1.0-2.7) L Plan Problems: (1) Pleural effusion Assessment & Plan: Pulmonary arteries: Normal enhancement of the vascular structures were no filling defect to suggest pulmonary embolus or aortic dissection. Normal aorta with no aneurysmal dilatation. Aorta: No acute findings. No thoracic aortic aneurysm. Lungs: Lung ibarra reveal minimal posterior subpleural scarring versus atelectasis otherwise normal right hemithorax. Pleural space: There is a loculated left-sided pleural effusion with left lower lobe consolidation and air bronchograms consistent with pneumonia. There is left posterior, left paraspinal, subpleural atelectasis or mass seen on images 104 through 124. Remainder of the left lung field including left upper lobe are clear. Heart: Unremarkable. No cardiomegaly. No significant pericardial effusion. No evidence of RV dysfunction. Bones/joints: No acute fracture. No dislocation. Soft tissues: Unremarkable. Lymph nodes: Unremarkable. No enlarged lymph nodes. Upper abdomen: Diffuse fatty liver. Diverticulosis of the colon with no signs of diverticulitis. The remainder of the visualized upper abdominal structures are unremarkable. IMPRESSION: 1. No pulmonary embolus or aortic dissection. 2. Loculated left-sided pleural effusion with left lower lobe infiltrate and associated areas of atelectasis along the subpleural spaces, difficult to exclude a mass. Follow-up with CT in 3-4 months following treatment recommended to evaluate resolution. 3. Diffuse fatty liver. Diverticulosis with no signs of diverticulitis. (2) Pneumonia Assessment & Plan: IV antibiotics Okay for diet CT reviewed personally Case discussed with patient and medical teams We will plan for radiological sampling/drainage of left-sided effusion if unable to will plan for chest tube placement Discussed with radiology plan for aspiration drain placement today Thank you will follow with recommendations Jeet Fallon Jun 11, 2019 12:04
--- NOTE | 2019-06-11 13:16 | Diagnostic Imaging Report ---
Indication: Dyspnea Comparison: 06/09/2019 A single view chest radiograph was obtained. Findings: There is evidence of increased left pleural effusion. Based on the appearance the effusion is almost certainly loculated. The heart is normal in size. Interstitial densities are present bilaterally within the lungs. IMPRESSION: Evidence of a increased left loculated pleural effusion. Possible interstitial edema. Correlate clinically
[2019-06-11 15:53] VITALS: BP 136/68
[2019-06-11 20:00] VITALS: BP 135/82
[2019-06-11] MEDS: cefTRIAXone 1 GM in D5W 55 ML IVPB SCH (21:03)
[2019-06-11] MEDS: Azithromycin 500 MG in D5W 275 ML IV SCH (21:57)
[2019-06-12] VITALS (18 sets, daily range): BP systolic 114–156; BP diastolic 68–101
[2019-06-12] MEDS: Vancomycin 1.25gm/NS Premix q24h IVPB SCH ×3 (00:16→17:14)
[2019-06-12] MEDS: NS w/KCl 20mEq 1000ml 1,000 ML IV SCH ×3 (02:47→18:02)
--- NOTE | 2019-06-12 04:15 | Progress Note ---
DATE: 06/11/2019 CARDIOLOGY PROGRESS NOTE SUBJECTIVE: The patient continues to have tachycardia, sinus rhythm, congestion, and some shortness of breath. OBJECTIVE: VITAL SIGNS: Temperature up to 101.7 last night ____ blood pressure 137/76, pulse 135, respirations 18. LUNGS: Bilateral breath sounds. Rhonchi. CARDIAC: Regular rhythm. Rapid rate. Normal S1 and S2. ABDOMEN: Soft. EXTREMITIES: No edema. LABORATORY DATA: White count 17 and hemoglobin 12.5. Sodium 138 and potassium 3.3. Lactic acid normal. BUN 6, creatinine 1, troponin 0, albumin 2.2. IMPRESSION: 1. Sepsis. No clinical signs of pulmonary venous congestion. 2. Left lower lobe infiltrate with loculated pleural effusion. 3. Secondary sinus tachycardia. 4. Hypovolemia. 5. Dehydration. 6. Severe protein-calorie malnutrition. PLAN: 1. Antimicrobials. 2. Respiratory hygiene. 3. Possible drainage of pleural effusion. 4. No antiarrhythmic therapy. 5. Maintain adequate hydration. 6. Antipyretics as needed. Moody López M.D. DR: HALEIGH JOB#: [id number] CC:
--- NOTE | 2019-06-12 08:45 | General Progress Note ---
Assessment/Plan Assessment/Plan: tachycardia loculated pleural effusion pneumonia leukocytosis possible sepsis PLAN iv antibiotics continue as is consider thoracic evaluation if not improved monitor Ct q 3 months follow up cultures ID evaluation impression, plan, and exam edited and reviewed in detail care discussed with RN Subjective Allergies: Coded Allergies: No Known Allergies (Unverified , 06/09/19) Subjective care noted cards appreciated Objective Last 24 Hour Vital Signs Date Time Temp Pulse Resp B/P (MAP) Pulse Ox O2 Delivery O2 Flow Rate FiO2 06/12/19 08:00 96.6 116 20 135/77 (96) 94 06/12/19 05:07 97.8 06/12/19 04:00 101.8 123 20 142/79 (100) 96 06/12/19 04:00 122 06/12/19 00:00 98.1 115 20 140/86 (104) 96 06/12/19 00:00 107 06/11/19 21:00 Room Air 06/11/19 20:00 129 06/11/19 20:00 98.6 125 20 135/82 (99) 95 06/11/19 18:41 130 20 97 Room Air 21 06/11/19 15:53 96.8 123 18 136/68 (90) 95 06/11/19 15:08 128 06/11/19 12:00 138 06/11/19 12:00 98.1 96 18 150/79 (102) 97 Intake and Output 06/11/19 06/12/19 19:00 07:00 Intake Total 1485.000 ml 550 ml Output Total 1300 ml Balance 185.000 ml 550 ml Intake Oral 710 ml IV Total 775.000 ml Other 550 ml Output Urine Total 1300 ml # Voids 1 5 Laboratory Tests 06/11/19 16:20: Vancomycin Level Trough 15.1H Height (Feet): 5 Height (Inches): 10.00 Weight (Pounds): 254 Objective WDWN NAD reduced breath sounds bilaterally without rhonchi or wheeze S1S2RR tachy without MRG NABS nontender no HSM no CCE nonfocal Lee Fish MD Jun 12, 2019 08:45
--- NOTE | 2019-06-12 09:33 | Pre-Procedure Note/Attestation ---
Pre-Procedure Note/Attestation Complete Prior to Procedure Planned Procedure: left Procedure Narrative: Pleural drain placement Indications for Procedure Pre-Operative Diagnosis: Pleural effusion or empyema Attestation I attest that I discussed the nature of the procedure; its benefits; risks and complications; and alternatives (and the risks and benefits of such alternatives ), prior to the procedure, with the patient (or the patient's legal automobile sales representative). I attest that, if there was a reasonable possibility of needing a blood transfusion, the patient (or the patient's legal automobile sales representative) was given the [facility] standardized written summary, pursuant to the Markel Isaias Blood Safety Act ([place] Health and Safety Code # 1645, as amended). I attest that I re-evaluated the patient just prior to the surgery and that there has been no change in the patient's H&P, except as documented below: Ryan Artis MD Jun 12, 2019 09:33
[2019-06-12] MEDS ORDERED: Lidocaine 1% Plain 30 ml INJ SCH (09:45)
--- NOTE | 2019-06-12 10:47 | Brief Operative Note ---
Immediate Post Operative Note Operative Note Pre-op Diagnosis: Pleural effusion or empyema Procedure: CT guided L chest drain placement Post-op Diagnosis: same as pre-op Surgeon: Poonam Pino Anesthesia: local Specimen: yes - 70 ml cloudy yellow fluid sent to lab Complications: none Condition: stable Fluids: none Drains: other - 8 F pigtail Implant(s) used?: No Ryan Pino MD Jun 12, 2019 10:47
[2019-06-12] MEDS: Heparin 5000 units/ml inj SUBQ SCH ×2 (11:24→21:00)
--- NOTE | 2019-06-12 13:08 | Surgery Progress Note ---
Surgery Progress Note Subjective Additional Comments no acute events cxr noted ct guided drain today Objective Last 24 Hour Vital Signs Date Time Temp Pulse Resp B/P (MAP) Pulse Ox O2 Delivery O2 Flow Rate FiO2 06/12/19 13:00 99.5 124 19 122/75 (91) 97 06/12/19 12:30 97.5 110 20 124/75 (91) 97 06/12/19 12:00 96.4 119 20 131/73 (92) 98 06/12/19 11:45 97.2 119 21 129/68 (88) 98 06/12/19 11:30 96.4 113 23 122/78 (93) 98 06/12/19 11:15 96.5 115 20 125/79 (94) 97 06/12/19 11:00 96.3 124 22 126/79 (95) 98 06/12/19 10:37 120 29 148/93 (111) 99 06/12/19 10:32 121 32 148/101 (117) 99 06/12/19 10:27 125 39 151/96 (114) 100 06/12/19 10:22 123 41 156/99 (118) 100 06/12/19 10:17 124 41 147/97 (114) 99 06/12/19 09:52 126 20 2.0 06/12/19 09:00 Room Air 06/12/19 08:00 108 06/12/19 08:00 96.6 116 20 135/77 (96) 94 06/12/19 05:07 97.8 06/12/19 04:00 101.8 123 20 142/79 (100) 96 06/12/19 04:00 122 06/12/19 00:00 98.1 115 20 140/86 (104) 96 06/12/19 00:00 107 06/11/19 21:00 Room Air 06/11/19 20:00 129 06/11/19 20:00 98.6 125 20 135/82 (99) 95 06/11/19 18:41 130 20 97 Room Air 21 06/11/19 15:53 96.8 123 18 136/68 (90) 95 06/11/19 15:08 128 I&O Intake and Output 06/11/19 06/12/19 19:00 07:00 Intake Total 1485.000 ml 550 ml Output Total 1300 ml Balance 185.000 ml 550 ml Intake Oral 710 ml IV Total 775.000 ml Other 550 ml Output Urine Total 1300 ml # Voids 1 5 Cardiovascular: RSR Respiratory: clear Abdomen: soft, flat, non-tender, present bowel sounds Extremities: no edema, no tenderness, no cyanosis Laboratory Tests Test 06/11/19 16:20 Vancomycin Level Trough 15.1 ug/mL (5.0-12.0) H Plan Problems: (1) Pleural effusion Assessment & Plan: Pulmonary arteries: Normal enhancement of the vascular structures were no filling defect to suggest pulmonary embolus or aortic dissection. Normal aorta with no aneurysmal dilatation. Aorta: No acute findings. No thoracic aortic aneurysm. Lungs: Lung ibarra reveal minimal posterior subpleural scarring versus atelectasis otherwise normal right hemithorax. Pleural space: There is a loculated left-sided pleural effusion with left lower lobe consolidation and air bronchograms consistent with pneumonia. There is left posterior, left paraspinal, subpleural atelectasis or mass seen on images 104 through 124. Remainder of the left lung field including left upper lobe are clear. Heart: Unremarkable. No cardiomegaly. No significant pericardial effusion. No evidence of RV dysfunction. Bones/joints: No acute fracture. No dislocation. Soft tissues: Unremarkable. Lymph nodes: Unremarkable. No enlarged lymph nodes. Upper abdomen: Diffuse fatty liver. Diverticulosis of the colon with no signs of diverticulitis. The remainder of the visualized upper abdominal structures are unremarkable. IMPRESSION: 1. No pulmonary embolus or aortic dissection. 2. Loculated left-sided pleural effusion with left lower lobe infiltrate and associated areas of atelectasis along the subpleural spaces, difficult to exclude a mass. Follow-up with CT in 3-4 months following treatment recommended to evaluate resolution. 3. Diffuse fatty liver. Diverticulosis with no signs of diverticulitis. (2) Pneumonia Assessment & Plan: IV antibiotics Okay for diet CT reviewed personally Case discussed with patient and medical teams We will plan for radiological sampling/drainage of left-sided effusion if unable to will plan for chest tube placement Discussed with radiology plan for aspiration drain placement today Thank you will follow with recommendations Jeet Fallon Jun 12, 2019 13:08
[2019-06-12] MEDS ORDERED: NS 275ml ONE (15:21)
[2019-06-12] MEDS ORDERED: Tubing IV Secondary IV ONE (15:21)
--- NOTE | 2019-06-12 16:18 | Diagnostic Imaging Report ---
Indication: Status post pleural drain placement Technique: One view of the chest Comparison: 06/11/2019 Findings: Interim placement of a pigtail drainage catheter in the left pleural space. No pneumothorax. Large loculated left pleural effusion is essentially unchanged. Right lung pleural space remain clear Impression: Interim left pleural drainage catheter placement. No radiographically evident complication
--- NOTE | 2019-06-12 18:00 | Consultation ---
DATE OF CONSULTATION: 06/12/2019 INFECTIOUS DISEASES CONSULTATION CONSULTING PHYSICIAN: Ishan Foster M.D. REFERRING PHYSICIAN: Lee Fish M.D. REASON FOR CONSULTATION: Pneumonia. HISTORY OF PRESENTING ILLNESS: This is a 28-year-old gentleman with no significant past medical history, who comes in with cough and shortness of breath. He underwent a thoracentesis for loculated pleural effusion and an Infectious Diseases consultation has been obtained for antibiotics. PAST MEDICAL HISTORY: Nothing significant. MEDICATIONS: As an inpatient, he is on lidocaine patch, ceftriaxone, azithromycin, potassium, vancomycin, Flagyl, subcutaneous heparin, albuterol ipratropium, Tylenol, [place], Zofran, Benadryl. ALLERGIES: No known drug allergies. SOCIAL HISTORY: He used to be a smoker. He does not smoke anymore. He drinks alcohol socially. No history of drug use. FAMILY HISTORY: Noncontributory. REVIEW OF SYSTEMS: RESPIRATORY: No fever or chills. His cough is improved. He has shortness of breath that is improving. No chest pain. CARDIAC: No chest pain. No palpitation. No dizziness. No syncope. GASTROINTESTINAL: No nausea. No vomiting. No abdominal pain or diarrhea. PHYSICAL EXAMINATION: VITAL SIGNS: Temperature of 96.6, T-max of 101.8, pulse of 120, respiratory 29, blood pressure 148/93, and O2 saturation of 99%. HEENT: Pupils equally reactive to light and accommodation. Mouth appears clean without thrush. NECK: Supple. No adenopathy. No JVD. CARDIOVASCULAR: Regular rate and rhythm. No murmurs. LUNGS: Clear to auscultation bilaterally. No crackles. No wheezes. ABDOMEN: Soft and nontender. No organomegaly. EXTREMITIES: No cyanosis, no clubbing, no edema. Left chest catheter noted. LABORATORY AND DIAGNOSTIC DATA: White count 17.4, hemoglobin 12.5, hematocrit 36.5, MCV 89, and platelet count of 275,000. Sodium 138, potassium 3.3, chloride 101, bicarb 25, BUN 6, creatinine 1, glucose 102, and calcium 8.7. Total bilirubin 1. AST 12, ALT 18, and alkaline phosphatase 59. C-reactive protein of 42. Total protein 7.1. Albumin 2.2. UA showing 2 to 4 white cells. Sputum showing normal shadi. Blood cultures are negative from June 09, 2019. June 10, 2019, blood cultures are negative. Chest x-ray is showing increased left-sided loculated pleural effusion, possible interstitial edema noted. The CT angiogram of the chest showing no pulmonary embolism or dissection, loculated left-sided pleural effusion with left lower lobe infiltrate and associated areas of atelectasis, diffuse fatty liver, diverticulosis without diverticulitis noted. ASSESSMENT: 1. This is a 28-year-old gentleman with no significant past medical history, who comes in with cough and shortness of breath and is found to have a left-sided pneumonia with loculated pleural effusion. He has undergone thoracentesis. Cultures are pending. We would like to rule out empyema as a possibility. 2. Pneumonia. 3. Leukocytosis. PLAN: 1. Continue vancomycin, cefepime, and Flagyl. 2. Discontinue azithromycin. 3. We will follow up cultures and adjust antibiotics accordingly. I would like to thank, Dr. Fish, for this consultation. Ishan Foster M.D. DR: ALLYN JOB#: [id number] CC: Lee Fish M.D.; Fax#: [phone]
[2019-06-12] MEDS: cefTRIAXone 1 GM in D5W 55 ML IVPB SCH (21:39)
[2019-06-13] VITALS: BP 114/68
[2019-06-13] MEDS: Vancomycin 1.25gm/NS Premix q24h IVPB SCH ×3 (00:14→17:10)
--- NOTE | 2019-06-13 03:00 | Progress Note ---
DATE: 06/12/2019 SUBJECTIVE: The patient continues to have congestion, sinus tachycardia, stable blood pressure parameters, on IV antimicrobials and bronchodilators. PHYSICAL EXAMINATION: LUNGS: Bilateral breath sounds. Rhonchi and rales at the left base. CARDIAC: Regular rhythm. Rapid rate. Normal S1, S2. ABDOMEN: Soft. EXTREMITIES: Trace edema. LABORATORY DATA: Laboratories pending. Cultures negative. Chest x-ray today with left pleural drainage catheter with persistent effusion. IMPRESSION: 1. Possible empyema. 2. Pneumonia. 3. Sepsis. 4. Sinus tachycardia. 5. Leukocytosis. 6. Hypokalemia. 7. Severe protein-calorie malnutrition. PLAN: Antimicrobials. Drainage catheter. Replace electrolytes. Continue hydration. Antipyretics. May need thoracic surgery for chest tube. Continue cardiac monitoring and DVT prophylaxis. Moody López M.D. DR: HAYLIE JOB#: [id number] CC:
[2019-06-13] MEDS: NS w/KCl 20mEq 1000ml 1,000 ML IV SCH ×3 (03:38→21:22)
[2019-06-13 04:00] VITALS: BP 128/83
[2019-06-13 07:19] LABS: BASOPHILS % (AUTO) 0.7 % (0.0-2.0); EOSINOPHILS % (AUTO) 0.8 % (0.0-3.0); HEMATOCRIT 36.3 % (42.0-52.0); HEMOGLOBIN 12.1 G/DL (14.2-18.0); LYMPHOCYTES % (AUTO) 10.8 % (20.0-45.0); MEAN CORPUSCULAR VOLUME 91 FL (80-99); MONOCYTES % (AUTO) 8.8 % (1.0-10.0); NEUTROPHILS % (AUTO) 78.9 % (45.0-75.0); PLATELET COUNT 315 K/UL (150-450); RED BLOOD COUNT 4.01 M/UL (4.70-6.10); RED CELL DISTRIBUTION WIDTH 11.9 % (11.6-14.8)
[2019-06-13 07:37] LABS: ANION GAP 14 mmol/L (5-15); BLOOD UREA NITROGEN 7 mg/dL (7-18); CARBON DIOXIDE 24 MMOL/L (21-32); CHLORIDE 101 MMOL/L (98-107); CREATININE 0.9 MG/DL (0.55-1.30); POTASSIUM 3.5 MMOL/L (3.5-5.1); SODIUM 139 MMOL/L (136-145)
[2019-06-13 08:00] VITALS: BP 119/68
[2019-06-13] MEDS ORDERED: guaiFENesin 100mg/5ml Liq ud ORAL PRN ×2 (08:15)
[2019-06-13] MEDS: Heparin 5000 units/ml inj SUBQ SCH ×2 (09:00→21:32)
--- NOTE | 2019-06-13 09:22 | Diagnostic Imaging Report ---
Indication: Loculated pleural effusion; pleural drainage requested by referring physician Technique: Informed consent obtained prior to commencement of the procedure. Procedural timeout performed. Procedure initially attempted under sonographic guidance. Ultrasound used to localize optimal puncture site. Intended puncture site was sterilely prepped and draped. Local anesthesia with 1% lidocaine. Under real-time ultrasound guidance, a 7 [place] Cornelius-Sanz catheter was advanced into the pleural space. However, when aspirated, no fluid could be returned. It was uncertain whether this was due to organized pleural contents or failure to adequately access the pleural space, as needle visualization was limited due to patient body habitus. It was then elected to performed this procedure under CT guidance. Localizing CT slices obtained. The venipuncture site sterilely prepped and draped. Local anesthesia with 1% lidocaine. Under CT guidance, the pleural space was accessed with a 21-gauge [place] needle. CT confirmed satisfactory needle position. Subsequently, 0.018 guidewire was inserted, followed by it reduction of a 6 [place]ian introducer, exchanged for 0.035 guidewire, followed by insertion of an 8.5 [place] Cook all-purpose drainage pigtail catheter. A small amount of cloudy yellow fluid, approximately 50 mL, could be aspirated. The catheter was placed to Pleur-evac drainage. A specimen was sent to the lab. The patient tolerated the procedure well, without immediate complication. Total dose length product 870 mGycm. CTDIvol(s) 21 x 6 mGy. Automated exposure control used to limit radiation dose. Comparison: Reference made to chest CT angiogram dated 06/09/2019 Findings: As above Impression: Successful placement of pleural drainage catheter, as described, under CT guidance. Note only a limited amount of fluid could be aspirated, indicating that the pleural fluid collection is likely loculated and organized.
--- NOTE | 2019-06-13 11:03 | Infectious Diseases Prog Note ---
Assessment/Plan Assessment/Plan antibiotics : vancomycin iv, ceftriaxone, flagyl A 1. empyema s/p drainage 2. pneumonia 3. leucocytosis improving P 1. continue iv vancomycin, ceftriaxone, flagyl 2. will follow up cultures Subjective Respiratory: Reports: shortness of breath - decreased, dry cough - mild Gastrointestinal/Abdominal: Denies: nausea, vomiting, diarrhea Musculoskeletal: Denies: pain Allergies: Coded Allergies: No Known Allergies (Unverified , 06/09/19) Objective Vital Signs Last 24 Hour Vital Signs Date Time Temp Pulse Resp B/P (MAP) Pulse Ox O2 Delivery O2 Flow Rate FiO2 06/13/19 09:00 Room Air 06/13/19 08:00 98.6 101 20 119/68 (85) 95 06/13/19 08:00 111 06/13/19 04:00 116 06/13/19 04:00 98.2 117 24 128/83 (98) 94 06/13/19 00:00 98.6 133 24 114/68 (83) 94 06/13/19 00:00 133 06/12/19 21:00 Room Air 06/12/19 20:00 99.7 125 24 125/76 (92) 94 06/12/19 20:00 117 06/12/19 19:11 111 20 93 Room Air 21 06/12/19 16:00 107 06/12/19 16:00 98.6 109 20 114/73 (87) 97 06/12/19 13:00 99.5 124 19 122/75 (91) 97 06/12/19 12:30 97.5 110 20 124/75 (91) 97 06/12/19 12:00 96.4 119 20 131/73 (92) 98 06/12/19 12:00 123 06/12/19 11:45 97.2 119 21 129/68 (88) 98 06/12/19 11:30 96.4 113 23 122/78 (93) 98 06/12/19 11:15 96.5 115 20 125/79 (94) 97 06/12/19 11:00 96.3 124 22 126/79 (95) 98 Height (Feet): 5 Height (Inches): 10.00 Weight (Pounds): 257 Respiratory/Chest: lungs clear, other - left CT Cardiovascular: normal rate, regular rhythm, no gallop/murmur Abdomen: soft, non tender Extremities: no edema Microbiology Date/Time Source Procedure Growth Status 06/10/19 13:05 Sputum Gram Stain - Final Complete 06/10/19 13:05 Sputum Sputum Culture - Final NORMAL UPPER RESPIRATORY [place] PRESENT Complete Laboratory Tests Test 06/13/19 05:44 White Blood Count 11.0 K/UL (4.8-10.8) H Red Blood Count 4.01 M/UL (4.70-6.10) L Hemoglobin 12.1 G/DL (14.2-18.0) L Hematocrit 36.3 % (42.0-52.0) L Mean Corpuscular Volume 91 FL (80-99) Mean Corpuscular Hemoglobin 30.1 PG (27.0-31.0) Mean Corpuscular Hemoglobin Concent 33.2 G/DL (32.0-36.0) Red Cell Distribution Width 11.9 % (11.6-14.8) Platelet Count 315 K/UL (150-450) Mean Platelet Volume 6.4 FL (6.5-10.1) L Neutrophils (%) (Auto) 78.9 % (45.0-75.0) H Lymphocytes (%) (Auto) 10.8 % (20.0-45.0) L Monocytes (%) (Auto) 8.8 % (1.0-10.0) Eosinophils (%) (Auto) 0.8 % (0.0-3.0) Basophils (%) (Auto) 0.7 % (0.0-2.0) Sodium Level 139 MMOL/L (136-145) Potassium Level 3.5 MMOL/L (3.5-5.1) Chloride Level 101 MMOL/L (98-107) Carbon Dioxide Level 24 MMOL/L (21-32) Anion Gap 14 mmol/L (5-15) Blood Urea Nitrogen 7 mg/dL (7-18) Creatinine 0.9 MG/DL (0.55-1.30) Estimat Glomerular Filtration Rate > 60 mL/min (>60) Glucose Level 85 MG/DL (74-106) Lactic Acid Level 1.20 mmol/L (0.4-2.0) Calcium Level 9.0 MG/DL (8.5-10.1) Magnesium Level 2.0 MG/DL (1.8-2.4) Pro-B-Type Natriuretic Peptide Pending Current Medications Medications (Trade) Dose Ordered Sig/Thiago Route PRN Reason Start Time Stop Time Status Last Admin Dose Admin Acetaminophen (Tylenol) 650 mg Q6H PRN ORAL Mild Pain/Temp > 100.5 06/10/19 07:45 07/10/19 07:44 06/12/19 04:37 Acetaminophen/ Hydrocodone Bitart ([place] 5/325) 1 tab Q6H PRN ORAL For severe Pain 06/10/19 07:45 06/17/19 07:44 Albuterol/ Ipratropium (Albuterol/ Ipratropium) 3 ml Q6HRT PRN HHN Shortness of Breath 06/10/19 07:45 06/15/19 07:44 Ceftriaxone Sodium 1 gm/ Dextrose 55 ml @ 110 mls/hr Q24H IVPB 06/10/19 21:00 06/17/19 20:59 06/12/19 21:39 Diphenhydramine HCl (Benadryl) 25 mg Q6H PRN ORAL itching 06/10/19 07:45 07/10/19 07:44 Guaifenesin (Robitussin) 300 mg Q4H PRN ORAL For Cough 06/13/19 08:15 07/13/19 08:14 06/13/19 08:48 Heparin Sodium (Porcine) (Heparin 5000 units/ml) 5,000 units EVERY 12 HOURS SUBQ 06/10/19 09:00 07/10/19 08:59 06/10/19 09:37 Metronidazole 100 ml @ 100 mls/hr Q8H IVPB 06/10/19 12:00 06/17/19 11:59 06/13/19 03:38 Ondansetron HCl (Zofran) 4 mg Q6H PRN IVP Nausea & Vomiting 06/10/19 07:45 07/10/19 07:44 Potassium Chloride/Sodium Chloride 1,000 ml @ 125 mls/hr Q8H IV 06/10/19 19:30 07/10/19 19:29 06/13/19 03:38 Vancomycin HCl (Vanco rx to dose) 1 ea DAILY MISC 06/10/19 09:00 07/10/19 08:59 06/11/19 09:00 Vancomycin/Sodium Chloride 275 ml @ 183.333 mls/hr Q8H IVPB 06/10/19 09:00 06/15/19 08:59 06/13/19 08:48 Ishan Foster MD Jun 13, 2019 11:03
[2019-06-13 12:00] VITALS: BP 131/83
--- NOTE | 2019-06-13 15:31 | Surgery Progress Note ---
Surgery Progress Note Subjective Additional Comments Left pigtail chest tube placed yesterday since serous output couple 100 cc microbiology pending not resulted yet. Discussed with thoracic surgery Objective Last 24 Hour Vital Signs Date Time Temp Pulse Resp B/P (MAP) Pulse Ox O2 Delivery O2 Flow Rate FiO2 06/13/19 12:00 126 06/13/19 12:00 98.2 126 21 131/83 (99) 95 06/13/19 09:00 Room Air 06/13/19 08:00 98.6 101 20 119/68 (85) 95 06/13/19 08:00 111 06/13/19 04:00 116 06/13/19 04:00 98.2 117 24 128/83 (98) 94 06/13/19 00:00 98.6 133 24 114/68 (83) 94 06/13/19 00:00 133 06/12/19 21:00 Room Air 06/12/19 20:00 99.7 125 24 125/76 (92) 94 06/12/19 20:00 117 06/12/19 19:11 111 20 93 Room Air 21 06/12/19 16:00 107 06/12/19 16:00 98.6 109 20 114/73 (87) 97 I&O Intake and Output 06/12/19 06/13/19 19:00 07:00 Intake Total 275 ml 1675.000 ml Output Total 800 ml 790 ml Balance -525 ml 885.000 ml Intake Oral 150 ml 360 ml IV Total 125 ml 1315.000 ml Output Urine Total 700 ml 750 ml Chest Tube Drainage Total 100 ml 40 ml # Voids 3 Dressing: dry Wound: clean Drains: other Cardiovascular: RSR Respiratory: decreased breath sounds Abdomen: soft, present bowel sounds Extremities: no cyanosis Laboratory Tests Test 06/13/19 05:44 White Blood Count 11.0 K/UL (4.8-10.8) H Red Blood Count 4.01 M/UL (4.70-6.10) L Hemoglobin 12.1 G/DL (14.2-18.0) L Hematocrit 36.3 % (42.0-52.0) L Mean Corpuscular Volume 91 FL (80-99) Mean Corpuscular Hemoglobin 30.1 PG (27.0-31.0) Mean Corpuscular Hemoglobin Concent 33.2 G/DL (32.0-36.0) Red Cell Distribution Width 11.9 % (11.6-14.8) Platelet Count 315 K/UL (150-450) Mean Platelet Volume 6.4 FL (6.5-10.1) L Neutrophils (%) (Auto) 78.9 % (45.0-75.0) H Lymphocytes (%) (Auto) 10.8 % (20.0-45.0) L Monocytes (%) (Auto) 8.8 % (1.0-10.0) Eosinophils (%) (Auto) 0.8 % (0.0-3.0) Basophils (%) (Auto) 0.7 % (0.0-2.0) Sodium Level 139 MMOL/L (136-145) Potassium Level 3.5 MMOL/L (3.5-5.1) Chloride Level 101 MMOL/L (98-107) Carbon Dioxide Level 24 MMOL/L (21-32) Anion Gap 14 mmol/L (5-15) Blood Urea Nitrogen 7 mg/dL (7-18) Creatinine 0.9 MG/DL (0.55-1.30) Estimat Glomerular Filtration Rate > 60 mL/min (>60) Glucose Level 85 MG/DL (74-106) Lactic Acid Level 1.20 mmol/L (0.4-2.0) Calcium Level 9.0 MG/DL (8.5-10.1) Magnesium Level 2.0 MG/DL (1.8-2.4) Pro-B-Type Natriuretic Peptide Pending Plan Problems: (1) Pleural effusion Assessment & Plan: Pulmonary arteries: Normal enhancement of the vascular structures were no filling defect to suggest pulmonary embolus or aortic dissection. Normal aorta with no aneurysmal dilatation. Aorta: No acute findings. No thoracic aortic aneurysm. Lungs: Lung ibarra reveal minimal posterior subpleural scarring versus atelectasis otherwise normal right hemithorax. Pleural space: There is a loculated left-sided pleural effusion with left lower lobe consolidation and air bronchograms consistent with pneumonia. There is left posterior, left paraspinal, subpleural atelectasis or mass seen on images 104 through 124. Remainder of the left lung field including left upper lobe are clear. Heart: Unremarkable. No cardiomegaly. No significant pericardial effusion. No evidence of RV dysfunction. Bones/joints: No acute fracture. No dislocation. Soft tissues: Unremarkable. Lymph nodes: Unremarkable. No enlarged lymph nodes. Upper abdomen: Diffuse fatty liver. Diverticulosis of the colon with no signs of diverticulitis. The remainder of the visualized upper abdominal structures are unremarkable. IMPRESSION: 1. No pulmonary embolus or aortic dissection. 2. Loculated left-sided pleural effusion with left lower lobe infiltrate and associated areas of atelectasis along the subpleural spaces, difficult to exclude a mass. Follow-up with CT in 3-4 months following treatment recommended to evaluate resolution. 3. Diffuse fatty liver. Diverticulosis with no signs of diverticulitis. (2) Pneumonia Assessment & Plan: IV antibiotics Okay for diet CT reviewed personally Case discussed with patient and medical teams We will plan for radiological sampling/drainage of left-sided effusion if unable to will plan for chest tube placement Discussed with radiology plan for aspiration drain placement Discussed with radiology minimal output with additional drainage since drainage placement with couple 100 cc of fairly serous output. No purulence noted. Microbiology pending. Discussed with thoracic surgery. Thank you will follow with recommendations Jeet Fallon Jun 13, 2019 15:31
[2019-06-13 16:00] VITALS: BP 135/88
--- NOTE | 2019-06-13 18:30 | Pulmonology Progress Note ---
Assessment/Plan Assessment/Plan Pulmonary Progress Note Assessment/Plan: loculated pleural effusion sp chest tube - feels better pneumonia leukocytosis possible sepsis PLAN iv antibiotics continue as is sp chest tube monitor Ct q 3 months follow up cultures ID evaluation impression, plan, and exam edited and reviewed in detail care discussed with RN Subjective Allergies: Coded Allergies: No Known Allergies (Unverified , 06/09/19) Subjective care noted cards appreciated Objective Vital Signs Noted Laboratory Tests Noted Height (Feet): 5 Height (Inches): 10.00 Weight (Pounds): 254 Objective WDWN NAD reduced breath sounds bilaterally S1S2RR tachy without MRG NABS nontender no HSM no CCE nonfocal Subjective ROS Limited/Unobtainable: No Allergies: Coded Allergies: No Known Allergies (Unverified , 06/09/19) Objective Last 24 Hour Vital Signs Date Time Temp Pulse Resp B/P (MAP) Pulse Ox O2 Delivery O2 Flow Rate FiO2 06/13/19 17:55 99.7 06/13/19 16:00 101.4 110 20 135/88 (104) 97 06/13/19 16:00 114 06/13/19 12:00 126 06/13/19 12:00 98.2 126 21 131/83 (99) 95 06/13/19 09:00 Room Air 06/13/19 08:00 98.6 101 20 119/68 (85) 95 06/13/19 08:00 111 06/13/19 07:00 104 20 94 Room Air 21 06/13/19 04:00 116 06/13/19 04:00 98.2 117 24 128/83 (98) 94 06/13/19 00:00 98.6 133 24 114/68 (83) 94 06/13/19 00:00 133 06/12/19 21:00 Room Air 06/12/19 20:00 99.7 125 24 125/76 (92) 94 06/12/19 20:00 117 06/12/19 19:11 111 20 93 Room Air 21 Intake and Output 06/12/19 06/13/19 19:00 07:00 Intake Total 275 ml 1675.000 ml Output Total 800 ml 790 ml Balance -525 ml 885.000 ml Intake Oral 150 ml 360 ml IV Total 125 ml 1315.000 ml Output Urine Total 700 ml 750 ml Chest Tube Drainage Total 100 ml 40 ml # Voids 3 Microbiology Date/Time Source Procedure Growth Status 06/12/19 12:00 Pleural Fluid Gram Stain - Final Resulted 06/12/19 12:00 Pleural Fluid Body Fluid Culture - Preliminary Resulted 06/12/19 12:00 Pleural Fluid Anaerobic Culture - Preliminary Resulted Laboratory Tests 06/13/19 05:44: White Blood Count 11.0H, Red Blood Count 4.01L, Hemoglobin 12.1L, Hematocrit 36.3L, Mean Corpuscular Volume 91, Mean Corpuscular Hemoglobin 30.1, Mean Corpuscular Hemoglobin Concent 33.2, Red Cell Distribution Width 11.9, Platelet Count 315, Mean Platelet Volume 6.4L, Neutrophils (%) (Auto) 78.9H, Lymphocytes (%) (Auto) 10.8L, Monocytes (%) (Auto) 8.8, Eosinophils (%) (Auto) 0.8, Basophils (%) (Auto) 0.7, Sodium Level 139, Potassium Level 3.5, Chloride Level 101, Carbon Dioxide Level 24, Anion Gap 14, Blood Urea Nitrogen 7, Creatinine 0.9, Estimat Glomerular Filtration Rate > 60, Glucose Level 85, Lactic Acid Level 1.20, Calcium Level 9.0, Magnesium Level 2.0, Pro-B-Type Natriuretic Peptide [Pending] Current Medications Medications (Trade) Dose Ordered Sig/Thiago Route PRN Reason Start Time Stop Time Status Last Admin Dose Admin Acetaminophen (Tylenol) 650 mg Q6H PRN ORAL Mild Pain/Temp > 100.5 06/10/19 07:45 07/10/19 07:44 06/13/19 17:25 Acetaminophen/ Hydrocodone Bitart ([place] 5/325) 1 tab Q6H PRN ORAL For severe Pain 06/10/19 07:45 06/17/19 07:44 Albuterol/ Ipratropium (Albuterol/ Ipratropium) 3 ml Q6HRT PRN HHN Shortness of Breath 06/10/19 07:45 06/15/19 07:44 Ceftriaxone Sodium 1 gm/ Dextrose 55 ml @ 110 mls/hr Q24H IVPB 06/10/19 21:00 06/17/19 20:59 06/12/19 21:39 Diphenhydramine HCl (Benadryl) 25 mg Q6H PRN ORAL itching 3/8/20 07:45 07/10/19 07:44 Guaifenesin (Robitussin) 300 mg Q4H PRN ORAL For Cough 06/13/19 08:15 07/13/19 08:14 06/13/19 08:48 Heparin Sodium (Porcine) (Heparin 5000 units/ml) 5,000 units EVERY 12 HOURS SUBQ 06/10/19 09:00 07/10/19 08:59 06/10/19 09:37 Metronidazole 100 ml @ 100 mls/hr Q8H IVPB 06/10/19 12:00 06/17/19 11:59 06/13/19 12:16 Ondansetron HCl (Zofran) 4 mg Q6H PRN IVP Nausea & Vomiting 06/10/19 07:45 07/10/19 07:44 Potassium Chloride/Sodium Chloride 1,000 ml @ 125 mls/hr Q8H IV 06/10/19 19:30 07/10/19 19:29 06/13/19 16:00 Vancomycin HCl (Vanco rx to dose) 1 ea DAILY MISC 06/10/19 09:00 07/10/19 08:59 06/11/19 09:00 Vancomycin/Sodium Chloride 275 ml @ 183.333 mls/hr Q8H IVPB 06/10/19 09:00 06/15/19 08:59 06/13/19 17:10 Moody Dowd MD Jun 13, 2019 18:30
[2019-06-13 20:00] VITALS: BP 126/81
[2019-06-13] MEDS: cefTRIAXone 1 GM in D5W 55 ML IVPB SCH (21:22)
[2019-06-14] VITALS: BP 123/78
[2019-06-14] MEDS: Vancomycin 1.25gm/NS Premix q24h IVPB SCH ×3 (01:00→16:55)
[2019-06-14] MEDS: NS w/KCl 20mEq 1000ml 1,000 ML IV SCH ×4 (03:30→23:05)
[2019-06-14 04:00] VITALS: BP 112/69
[2019-06-14 06:32] LABS: BASOPHILS % (AUTO) 1.1 % (0.0-2.0); EOSINOPHILS % (AUTO) 0.8 % (0.0-3.0); HEMATOCRIT 37.8 % (42.0-52.0); HEMOGLOBIN 12.6 G/DL (14.2-18.0); MEAN CORPUSCULAR VOLUME 91 FL (80-99); MONOCYTES % (AUTO) 8.2 % (1.0-10.0); NEUTROPHILS % (AUTO) 75.9 % (45.0-75.0); PLATELET COUNT 377 K/UL (150-450); RED BLOOD COUNT 4.17 M/UL (4.70-6.10); RED CELL DISTRIBUTION WIDTH 11.9 % (11.6-14.8); WHITE BLOOD COUNT 11.3 K/UL (4.8-10.8)
[2019-06-14 07:19] LABS: ANION GAP 14 mmol/L (5-15); BLOOD UREA NITROGEN 7 mg/dL (7-18); CARBON DIOXIDE 25 MMOL/L (21-32); CHLORIDE 101 MMOL/L (98-107); CREATININE 0.9 MG/DL (0.55-1.30); POTASSIUM 4.1 MMOL/L (3.5-5.1); SODIUM 140 MMOL/L (136-145)
[2019-06-14 08:00] VITALS: BP 137/79
--- NOTE | 2019-06-14 08:30 | General Progress Note ---
Assessment/Plan Assessment/Plan: tachycardia loculated pleural effusion s/p drainage and catheter placement pneumonia leukocytosis possible sepsis PLAN iv antibiotics continue as is consider thoracic evaluation if not improved monitor Ct for change follow up cultures ID evaluation impression, plan, and exam edited and reviewed in detail care discussed with RN Subjective Allergies: Coded Allergies: No Known Allergies (Unverified , 06/09/19) Subjective care noted cards appreciated catheter in place cultures negative Objective Last 24 Hour Vital Signs Date Time Temp Pulse Resp B/P (MAP) Pulse Ox O2 Delivery O2 Flow Rate FiO2 06/14/19 04:00 122 06/14/19 04:00 98.2 106 24 112/69 (83) 95 06/14/19 00:00 98.9 106 22 123/78 (93) 99 06/14/19 00:00 115 06/13/19 21:00 Room Air 06/13/19 20:00 132 06/13/19 20:00 100.6 118 22 126/81 (96) 95 06/13/19 19:34 124 20 96 Room Air 21 06/13/19 17:55 99.7 06/13/19 16:00 101.4 110 20 135/88 (104) 97 06/13/19 16:00 114 06/13/19 12:00 126 06/13/19 12:00 98.2 126 21 131/83 (99) 95 06/13/19 09:00 Room Air Intake and Output 06/13/19 06/14/19 19:00 07:00 Intake Total 720 ml 800 ml Output Total 1760 ml 75 ml Balance -1040 ml 725 ml Intake Oral 720 ml Other 800 ml Output Urine Total 1600 ml Chest Tube Drainage Total 160 ml 75 ml # Voids 3 2 # Bowel Movements 2 Laboratory Tests 06/14/19 05:33: White Blood Count 11.3H, Red Blood Count 4.17L, Hemoglobin 12.6L, Hematocrit 37.8L, Mean Corpuscular Volume 91, Mean Corpuscular Hemoglobin 30.1, Mean Corpuscular Hemoglobin Concent 33.2, Red Cell Distribution Width 11.9, Platelet Count 377, Mean Platelet Volume 6.2L, Neutrophils (%) (Auto) 75.9H, Lymphocytes (%) (Auto) 14.0L, Monocytes (%) (Auto) 8.2, Eosinophils (%) (Auto) 0.8, Basophils (%) (Auto) 1.1, Erythrocyte Sedimentation Rate [Pending], Sodium Level 140, Potassium Level 4.1, Chloride Level 101, Carbon Dioxide Level 25, Anion Gap 14, Blood Urea Nitrogen 7, Creatinine 0.9, Estimat Glomerular Filtration Rate > 60, Glucose Level 87, Calcium Level 9.0, C-Reactive Protein, Quantitative 27.2H Height (Feet): 5 Height (Inches): 10.00 Weight (Pounds): 257 Objective WDWN NAD reduced breath sounds bilaterally without rhonchi or wheeze S1S2RR tachy without MRG NABS nontender no HSM no CCE nonfocal Lee Fish MD Jun 14, 2019 08:30
--- NOTE | 2019-06-14 09:04 | Diagnostic Imaging Report ---
Indication: Dyspnea Technique: One view of the chest Comparison: 06/12/2019 Findings: Pigtail catheter is again demonstrated in the left pleural space. Loculated large left pleural effusion and is again demonstrated. There may be some underlying parenchymal consolidation as well. The right lung and pleural space remain clear. Findings are unchanged Impression: Unchanged, over 2 days, findings as above.
[2019-06-14] MEDS: Heparin 5000 units/ml inj SUBQ SCH ×2 (09:46→21:37)
--- NOTE | 2019-06-14 10:12 | Infectious Diseases Prog Note ---
Assessment/Plan Assessment/Plan A 1. empyema s/p drainage 2. pneumonia 3. leucocytosis improving 4. Fatty liver 5. Obesity P 1. continue iv vancomycin, ceftriaxone, Flagyl 2. will follow up cultures Subjective ROS Limited/Unobtainable: No Constitutional: Reports: no symptoms, other - feels better Respiratory: Reports: no symptoms Gastrointestinal/Abdominal: Reports: no symptoms Genitourinary: Reports: no symptoms Allergies: Coded Allergies: No Known Allergies (Unverified , 06/09/19) Objective Vital Signs Last 24 Hour Vital Signs Date Time Temp Pulse Resp B/P (MAP) Pulse Ox O2 Delivery O2 Flow Rate FiO2 06/14/19 08:12 127 20 94 Room Air 21 06/14/19 08:00 99.0 101 18 137/79 (98) 96 06/14/19 04:00 122 06/14/19 04:00 98.2 106 24 112/69 (83) 95 06/14/19 00:00 98.9 106 22 123/78 (93) 99 06/14/19 00:00 115 06/13/19 21:00 Room Air 06/13/19 20:00 132 06/13/19 20:00 100.6 118 22 126/81 (96) 95 06/13/19 19:34 124 20 96 Room Air 21 06/13/19 17:55 99.7 06/13/19 16:00 101.4 110 20 135/88 (104) 97 06/13/19 16:00 114 06/13/19 12:00 126 06/13/19 12:00 98.2 126 21 131/83 (99) 95 Height (Feet): 5 Height (Inches): 10.00 Weight (Pounds): 257 General Appearance: no acute distress HEENT: mucous membranes moist Respiratory/Chest: lungs clear, other - left lung drain Cardiovascular: normal rate Abdomen: soft, non tender Extremities: no edema Neurologic/Psychiatric: alert, oriented x 3, responsive Microbiology Date/Time Source Procedure Growth Status 06/12/19 12:00 Pleural Fluid Gram Stain - Final Resulted 06/12/19 12:00 Pleural Fluid Body Fluid Culture - Preliminary Resulted 06/12/19 12:00 Pleural Fluid Anaerobic Culture - Preliminary Resulted Laboratory Tests Test 06/14/19 05:33 White Blood Count 11.3 K/UL (4.8-10.8) H Red Blood Count 4.17 M/UL (4.70-6.10) L Hemoglobin 12.6 G/DL (14.2-18.0) L Hematocrit 37.8 % (42.0-52.0) L Mean Corpuscular Volume 91 FL (80-99) Mean Corpuscular Hemoglobin 30.1 PG (27.0-31.0) Mean Corpuscular Hemoglobin Concent 33.2 G/DL (32.0-36.0) Red Cell Distribution Width 11.9 % (11.6-14.8) Platelet Count 377 K/UL (150-450) Mean Platelet Volume 6.2 FL (6.5-10.1) L Neutrophils (%) (Auto) 75.9 % (45.0-75.0) H Lymphocytes (%) (Auto) 14.0 % (20.0-45.0) L Monocytes (%) (Auto) 8.2 % (1.0-10.0) Eosinophils (%) (Auto) 0.8 % (0.0-3.0) Basophils (%) (Auto) 1.1 % (0.0-2.0) Erythrocyte Sedimentation Rate 80 MM/HR (0-15) H Sodium Level 140 MMOL/L (136-145) Potassium Level 4.1 MMOL/L (3.5-5.1) Chloride Level 101 MMOL/L (98-107) Carbon Dioxide Level 25 MMOL/L (21-32) Anion Gap 14 mmol/L (5-15) Blood Urea Nitrogen 7 mg/dL (7-18) Creatinine 0.9 MG/DL (0.55-1.30) Estimat Glomerular Filtration Rate > 60 mL/min (>60) Glucose Level 87 MG/DL (74-106) Calcium Level 9.0 MG/DL (8.5-10.1) C-Reactive Protein, Quantitative 27.2 mg/dL (0.00-0.90) H Current Medications Medications (Trade) Dose Ordered Sig/Thiago Route PRN Reason Start Time Stop Time Status Last Admin Dose Admin Acetaminophen (Tylenol) 650 mg Q6H PRN ORAL Mild Pain/Temp > 100.5 06/10/19 07:45 07/10/19 07:44 06/13/19 17:25 Acetaminophen/ Hydrocodone Bitart ([place] 5/325) 1 tab Q6H PRN ORAL For severe Pain 06/10/19 07:45 06/17/19 07:44 Albuterol/ Ipratropium (Albuterol/ Ipratropium) 3 ml Q6HRT PRN HHN Shortness of Breath 06/10/19 07:45 06/15/19 07:44 Ceftriaxone Sodium 1 gm/ Dextrose 55 ml @ 110 mls/hr Q24H IVPB 06/10/19 21:00 06/17/19 20:59 06/13/19 21:22 Diphenhydramine HCl (Benadryl) 25 mg Q6H PRN ORAL itching 06/10/19 07:45 07/10/19 07:44 Guaifenesin (Robitussin) 300 mg Q4H PRN ORAL For Cough 06/13/19 08:15 07/13/19 08:14 06/13/19 08:48 Heparin Sodium (Porcine) (Heparin 5000 units/ml) 5,000 units EVERY 12 HOURS SUBQ 06/10/19 09:00 07/10/19 08:59 06/14/19 09:46 Metronidazole 100 ml @ 100 mls/hr Q8H IVPB 06/10/19 12:00 06/17/19 11:59 06/14/19 04:00 Ondansetron HCl (Zofran) 4 mg Q6H PRN IVP Nausea & Vomiting 06/10/19 07:45 07/10/19 07:44 Potassium Chloride/Sodium Chloride 1,000 ml @ 125 mls/hr Q8H IV 06/10/19 19:30 07/10/19 19:29 06/14/19 03:30 Vancomycin HCl (Vanco rx to dose) 1 ea DAILY MISC 06/10/19 09:00 07/10/19 08:59 06/11/19 09:00 Vancomycin/Sodium Chloride 275 ml @ 183.333 mls/hr Q8H IVPB 06/10/19 09:00 06/15/19 08:59 06/14/19 09:45 Stone Estrada MD Jun 14, 2019 10:12
[2019-06-14 12:00] VITALS: BP 112/67
--- NOTE | 2019-06-14 15:06 | Surgery Progress Note ---
Surgery Progress Note Subjective Additional Comments No acute overnight events. Patient states he feels better. Breathing better. No nausea vomiting fever chills. Persistent leukocytosis 11,000. ESR elevated. Objective Last 24 Hour Vital Signs Date Time Temp Pulse Resp B/P (MAP) Pulse Ox O2 Delivery O2 Flow Rate FiO2 06/14/19 12:00 98.6 104 18 112/67 (82) 96 06/14/19 12:00 109 06/14/19 09:00 Room Air 06/14/19 08:12 127 20 94 Room Air 21 06/14/19 08:00 130 06/14/19 08:00 99.0 101 18 137/79 (98) 96 06/14/19 04:00 122 06/14/19 04:00 98.2 106 24 112/69 (83) 95 06/14/19 00:00 98.9 106 22 123/78 (93) 99 06/14/19 00:00 115 06/13/19 21:00 Room Air 06/13/19 20:00 132 06/13/19 20:00 100.6 118 22 126/81 (96) 95 06/13/19 19:34 124 20 96 Room Air 21 06/13/19 17:55 99.7 06/13/19 16:00 101.4 110 20 135/88 (104) 97 06/13/19 16:00 114 I&O Intake and Output 06/13/19 06/14/19 19:00 07:00 Intake Total 720 ml 800 ml Output Total 1760 ml 75 ml Balance -1040 ml 725 ml Intake Oral 720 ml Other 800 ml Output Urine Total 1600 ml Chest Tube Drainage Total 160 ml 75 ml # Voids 3 2 # Bowel Movements 2 Cardiovascular: RSR Respiratory: clear, decreased breath sounds Abdomen: soft, present bowel sounds, non-distended Extremities: no tenderness, no cyanosis Laboratory Tests Test 06/14/19 05:33 White Blood Count 11.3 K/UL (4.8-10.8) H Red Blood Count 4.17 M/UL (4.70-6.10) L Hemoglobin 12.6 G/DL (14.2-18.0) L Hematocrit 37.8 % (42.0-52.0) L Mean Corpuscular Volume 91 FL (80-99) Mean Corpuscular Hemoglobin 30.1 PG (27.0-31.0) Mean Corpuscular Hemoglobin Concent 33.2 G/DL (32.0-36.0) Red Cell Distribution Width 11.9 % (11.6-14.8) Platelet Count 377 K/UL (150-450) Mean Platelet Volume 6.2 FL (6.5-10.1) L Neutrophils (%) (Auto) 75.9 % (45.0-75.0) H Lymphocytes (%) (Auto) 14.0 % (20.0-45.0) L Monocytes (%) (Auto) 8.2 % (1.0-10.0) Eosinophils (%) (Auto) 0.8 % (0.0-3.0) Basophils (%) (Auto) 1.1 % (0.0-2.0) Erythrocyte Sedimentation Rate 80 MM/HR (0-15) H Sodium Level 140 MMOL/L (136-145) Potassium Level 4.1 MMOL/L (3.5-5.1) Chloride Level 101 MMOL/L (98-107) Carbon Dioxide Level 25 MMOL/L (21-32) Anion Gap 14 mmol/L (5-15) Blood Urea Nitrogen 7 mg/dL (7-18) Creatinine 0.9 MG/DL (0.55-1.30) Estimat Glomerular Filtration Rate > 60 mL/min (>60) Glucose Level 87 MG/DL (74-106) Calcium Level 9.0 MG/DL (8.5-10.1) C-Reactive Protein, Quantitative 27.2 mg/dL (0.00-0.90) H Plan Problems: (1) Pleural effusion Assessment & Plan: Pulmonary arteries: Normal enhancement of the vascular structures were no filling defect to suggest pulmonary embolus or aortic dissection. Normal aorta with no aneurysmal dilatation. Aorta: No acute findings. No thoracic aortic aneurysm. Lungs: Lung ibarra reveal minimal posterior subpleural scarring versus atelectasis otherwise normal right hemithorax. Pleural space: There is a loculated left-sided pleural effusion with left lower lobe consolidation and air bronchograms consistent with pneumonia. There is left posterior, left paraspinal, subpleural atelectasis or mass seen on images 104 through 124. Remainder of the left lung field including left upper lobe are clear. Heart: Unremarkable. No cardiomegaly. No significant pericardial effusion. No evidence of RV dysfunction. Bones/joints: No acute fracture. No dislocation. Soft tissues: Unremarkable. Lymph nodes: Unremarkable. No enlarged lymph nodes. Upper abdomen: Diffuse fatty liver. Diverticulosis of the colon with no signs of diverticulitis. The remainder of the visualized upper abdominal structures are unremarkable. IMPRESSION: 1. No pulmonary embolus or aortic dissection. 2. Loculated left-sided pleural effusion with left lower lobe infiltrate and associated areas of atelectasis along the subpleural spaces, difficult to exclude a mass. Follow-up with CT in 3-4 months following treatment recommended to evaluate resolution. 3. Diffuse fatty liver. Diverticulosis with no signs of diverticulitis. (2) Pneumonia Assessment & Plan: IV antibiotics Okay for diet CT reviewed personally Case discussed with patient and medical teams We will plan for radiological sampling/drainage of left-sided effusion if unable to will plan for chest tube placement Discussed with radiology plan for aspiration drain placement Discussed with radiology minimal output with additional drainage since drainage placement with couple 100 cc of fairly serous output. No purulence noted. Microbiology pending. Discussed with thoracic surgery. Chest x-ray noted over the past few days remains with a large loculated effusion on the left side. Chest tube still with drainage. Awaiting to see if can get a thoracic surgeon to eval for possible VATS if necessary Thank you will follow with recommendations Jeet Fallon Jun 14, 2019 15:06
[2019-06-14 16:00] VITALS: BP 118/63
[2019-06-14 21:00] VITALS: BP 113/58
[2019-06-14] MEDS: cefTRIAXone 1 GM in D5W 55 ML IVPB SCH (22:33)
[2019-06-14] MEDS: Vancomycin 1.5gm/NS Premix IVPB SCH (23:05)
[2019-06-15 01:00] VITALS: BP 121/70
[2019-06-15 04:00] VITALS: BP 131/78
[2019-06-15] MEDS: Vancomycin 1.5gm/NS Premix IVPB SCH ×4 (04:33→22:53)
[2019-06-15 08:00] VITALS: BP 130/80
[2019-06-15] MEDS: Heparin 5000 units/ml inj SUBQ SCH ×2 (08:16→20:36)
--- NOTE | 2019-06-15 08:16 | General Progress Note ---
Assessment/Plan Assessment/Plan: tachycardia loculated pleural effusion s/p drainage and catheter placement pneumonia leukocytosis PLAN iv antibiotics continue as is consider thoracic evaluation if not improved monitor Ct for change follow up cultures ID evaluation impression, plan, and exam edited and reviewed in detail care discussed with RN Subjective Allergies: Coded Allergies: No Known Allergies (Unverified , 06/09/19) Subjective care noted cards appreciated catheter in place cultures negative ID noted Objective Last 24 Hour Vital Signs Date Time Temp Pulse Resp B/P (MAP) Pulse Ox O2 Delivery O2 Flow Rate FiO2 06/15/19 08:00 96.6 102 18 130/80 (97) 98 06/15/19 07:34 133 20 94 Room Air 21 06/15/19 04:00 97.3 109 20 131/78 (95) 93 06/15/19 04:00 98 06/15/19 01:05 98.2 06/15/19 01:00 98.2 99 20 121/70 (87) 95 06/15/19 00:00 101 06/14/19 21:00 Room Air Room Air Room Air 06/14/19 21:00 100.8 113 20 113/58 (76) 94 06/14/19 20:00 126 06/14/19 19:39 126 20 97 Room Air 21 06/14/19 16:00 96.6 102 18 118/63 (81) 97 06/14/19 16:00 108 06/14/19 12:00 98.6 104 18 112/67 (82) 96 06/14/19 12:00 109 06/14/19 09:00 Room Air Intake and Output 06/14/19 06/15/19 19:00 07:00 Intake Total 803 ml 2663 ml Output Total 904 ml 2050 ml Balance -101 ml 613 ml Intake Oral 140 ml IV Total 663 ml 2663 ml Output Urine Total 900 ml 2050 ml Chest Tube Drainage Total 4 ml # Voids 3 # Bowel Movements 2 Laboratory Tests 06/14/19 16:13: Vancomycin Level Trough 11.6 Height (Feet): 5 Height (Inches): 10.00 Weight (Pounds): 257 Objective WDWN NAD reduced breath sounds bilaterally without rhonchi or wheeze [id number] tachy without MRG NABS nontender no HSM no CCE nonfocal Lee Fish MD Jun 15, 2019:16
--- NOTE | 2019-06-15 11:24 | Infectious Diseases Prog Note ---
Assessment/Plan Assessment/Plan antibiotics : vancomycin iv, ceftriaxone, flagyl A 1. empyema s/p drainage 2. pneumonia 3. leucocytosis improving P 1. continue iv vancomycin, ceftriaxone, flagyl 2. will follow up cultures Subjective Constitutional: Denies: fever, chills Respiratory: Reports: shortness of breath - decreased, productive cough - decreased Gastrointestinal/Abdominal: Denies: nausea, vomiting, diarrhea Musculoskeletal: Denies: pain Allergies: Coded Allergies: No Known Allergies (Unverified , 06/09/19) Objective Vital Signs Last 24 Hour Vital Signs Date Time Temp Pulse Resp B/P (MAP) Pulse Ox O2 Delivery O2 Flow Rate FiO2 06/15/19 09:00 Room Air Room Air Room Air 06/15/19 08:00 96.6 102 18 130/80 (97) 98 06/15/19 08:00 125 06/15/19 07:34 133 20 94 Room Air 21 06/15/19 04:00 97.3 109 20 131/78 (95) 93 06/15/19 04:00 98 06/15/19 01:05 98.2 06/15/19 01:00 98.2 99 20 121/70 (87) 95 06/15/19 00:00 101 06/14/19 21:00 Room Air Room Air Room Air 06/14/19 21:00 100.8 113 20 113/58 (76) 94 06/14/19 20:00 126 06/14/19 19:39 126 20 97 Room Air 21 06/14/19 16:00 96.6 102 18 118/63 (81) 97 06/14/19 16:00 108 06/14/19 12:00 98.6 104 18 112/67 (82) 96 06/14/19 12:00 109 Height (Feet): 5 Height (Inches): 10.00 Weight (Pounds): 257 Respiratory/Chest: lungs clear Cardiovascular: normal rate, regular rhythm, no gallop/murmur Abdomen: soft, non tender Extremities: no edema, other - left CT Microbiology Date/Time Source Procedure Growth Status 06/12/19 12:00 Pleural Fluid Gram Stain - Final Resulted 06/12/19 12:00 Pleural Fluid Body Fluid Culture - Preliminary NO GROWTH AFTER 72 HOURS Resulted 06/12/19 12:00 Pleural Fluid Anaerobic Culture - Preliminary NO GROWTH Resulted Laboratory Tests Test 06/14/19 16:13 Vancomycin Level Trough 11.6 ug/mL (5.0-12.0) Current Medications Medications (Trade) Dose Ordered Sig/Thiago Route PRN Reason Start Time Stop Time Status Last Admin Dose Admin Acetaminophen (Tylenol) 650 mg Q6H PRN ORAL Mild Pain/Temp > 100.5 06/10/19 07:45 07/10/19 07:44 06/14/19 21:31 Acetaminophen/ Hydrocodone Bitart ([place] 5/325) 1 tab Q6H PRN ORAL For severe Pain 06/10/19 07:45 06/17/19 07:44 Ceftriaxone Sodium 1 gm/ Dextrose 55 ml @ 110 mls/hr Q24H IVPB 06/10/19 21:00 06/17/19 20:59 06/14/19 22:33 Diphenhydramine HCl (Benadryl) 25 mg Q6H PRN ORAL itching 06/10/19 07:45 07/10/19 07:44 Guaifenesin (Robitussin) 300 mg Q4H PRN ORAL For Cough 06/13/19 08:15 07/13/19 08:14 06/13/19 08:48 Heparin Sodium (Porcine) (Heparin 5000 units/ml) 5,000 units EVERY 12 HOURS SUBQ 06/10/19 09:00 07/10/19 08:59 06/15/19 08:16 Metronidazole 100 ml @ 100 mls/hr Q8H IVPB 06/10/19 12:00 06/17/19 11:59 06/15/19 10:49 Ondansetron HCl (Zofran) 4 mg Q6H PRN IVP Nausea & Vomiting 06/10/19 07:45 07/10/19 07:44 Potassium Chloride/Sodium Chloride 1,000 ml @ 125 mls/hr Q8H IV 06/10/19 19:30 07/10/19 19:29 06/14/19 23:05 Vancomycin HCl (Vanco rx to dose) 1 ea DAILY MISC 06/10/19 09:00 07/10/19 08:59 06/11/19 09:00 Vancomycin/Sodium Chloride 275 ml @ 137.5 mls/ hr Q6H IVPB 06/14/19 23:00 06/19/19 22:59 06/15/19 10:38 Ishan Foster MD Jun 15, 2019 11:24
[2019-06-15] MEDS: NS w/KCl 20mEq 1000ml 1,000 ML IV SCH ×2 (11:57→20:34)
[2019-06-15 12:00] VITALS: BP 112/66
--- NOTE | 2019-06-15 12:21 | Surgery Progress Note ---
Surgery Progress Note Subjective Additional Comments seen by Dr. Darden Thoracic plan for surgery VATS tuesday Objective Last 24 Hour Vital Signs Date Time Temp Pulse Resp B/P (MAP) Pulse Ox O2 Delivery O2 Flow Rate FiO2 06/15/19 09:00 Room Air Room Air Room Air 06/15/19 08:00 96.6 102 18 130/80 (97) 98 06/15/19 08:00 125 06/15/19 07:34 133 20 94 Room Air 21 06/15/19 04:00 97.3 109 20 131/78 (95) 93 06/15/19 04:00 98 06/15/19 01:05 98.2 06/15/19 01:00 98.2 99 20 121/70 (87) 95 06/15/19 00:00 101 06/14/19 21:00 Room Air Room Air Room Air 06/14/19 21:00 100.8 113 20 113/58 (76) 94 06/14/19 20:00 126 06/14/19 19:39 126 20 97 Room Air 21 06/14/19 16:00 96.6 102 18 118/63 (81) 97 06/14/19 16:00 108 I&O Intake and Output 06/14/19 06/15/19 19:00 07:00 Intake Total 803 ml 2663 ml Output Total 904 ml 2050 ml Balance -101 ml 613 ml Intake Oral 140 ml IV Total 663 ml 2663 ml Output Urine Total 900 ml 2050 ml Chest Tube Drainage Total 4 ml # Voids 3 # Bowel Movements 2 Drains: other Cardiovascular: RSR Respiratory: clear, decreased breath sounds Abdomen: soft, non-tender, present bowel sounds Extremities: no edema, no tenderness, no cyanosis Laboratory Tests Test 06/14/19 16:13 Vancomycin Level Trough 11.6 ug/mL (5.0-12.0) Plan Problems: (1) Pleural effusion Assessment & Plan: Pulmonary arteries: Normal enhancement of the vascular structures were no filling defect to suggest pulmonary embolus or aortic dissection. Normal aorta with no aneurysmal dilatation. Aorta: No acute findings. No thoracic aortic aneurysm. Lungs: Lung ibarra reveal minimal posterior subpleural scarring versus atelectasis otherwise normal right hemithorax. Pleural space: There is a loculated left-sided pleural effusion with left lower lobe consolidation and air bronchograms consistent with pneumonia. There is left posterior, left paraspinal, subpleural atelectasis or mass seen on images 104 through 124. Remainder of the left lung field including left upper lobe are clear. Heart: Unremarkable. No cardiomegaly. No significant pericardial effusion. No evidence of RV dysfunction. Bones/joints: No acute fracture. No dislocation. Soft tissues: Unremarkable. Lymph nodes: Unremarkable. No enlarged lymph nodes. Upper abdomen: Diffuse fatty liver. Diverticulosis of the colon with no signs of diverticulitis. The remainder of the visualized upper abdominal structures are unremarkable. IMPRESSION: 1. No pulmonary embolus or aortic dissection. 2. Loculated left-sided pleural effusion with left lower lobe infiltrate and associated areas of atelectasis along the subpleural spaces, difficult to exclude a mass. Follow-up with CT in 3-4 months following treatment recommended to evaluate resolution. 3. Diffuse fatty liver. Diverticulosis with no signs of diverticulitis. (2) Pneumonia Assessment & Plan: IV antibiotics Okay for diet CT reviewed personally Case discussed with patient and medical teams We will plan for radiological sampling/drainage of left-sided effusion if unable to will plan for chest tube placement Discussed with radiology plan for aspiration drain placement Discussed with radiology minimal output with additional drainage since drainage placement with couple 100 cc of fairly serous output. No purulence noted. Microbiology pending. Discussed with thoracic surgery. Chest x-ray noted over the past few days remains with a large loculated effusion on the left side. Chest tube still with drainage. Dr. Darden has seen patient VATS tuesday Thank you will follow with recommendations Jeet Fallon Jun 15, 2019 12:20
--- NOTE | 2019-06-15 15:37 | Anethesia Preoperative Eval ---
Anesthesia Pre-op PMH/ROS General Date of Evaluation: Jun 15, 2019 Time of Evaluation: 15:36 Anesthesiologist: deidre ASA Score: ASA 3 Mallampati Score Class I : Soft palate, uvula, fauces, pillars visible Class II: Soft palate, uvula, fauces visible Class III: Soft palate, base of uvula visible Class IV: Only hard plate visible Mallampati Classification: Class II Surgeon: Adelso Diagnosis: Pleural Effusion Surgical Procedure: VATS Anesthesia History: none Family History: no anesthesia problems Allergies: Coded Allergies: No Known Allergies (Unverified , 06/09/19) Medications: see eMAR Patient NPO?: Yes Past Medical History Cardiovascular: Reports: arrhythmia - ST; Denies: HTN, CAD, SD, valve dz, other Pulmonary: Reports: other - Emphyema; Pneumonia ; s/p CT gudided drain; Denies: asthma, COPD, JERRY Gastrointestinal/Genitourinary: Denies: GERD, CRI, ESRD, other Neurologic/Psychiatric: Denies: dementia, CVA, depression/anxiety, TIA, other Endocrine: Denies: DM, hypothyroidism, steroids, other HEENT: Denies: cataract (L), cataract (R), glaucoma, [place]AY OWINGEH (L), [place] OWINGEH (R), other Hematology/Immune: Denies: anemia, DVT, bleeding disorder, other Musculoskeletal/Integumentary: Denies: OA, RA, DJD, DDD, edema, other Other: obesity, other - fatty liver PMH Narrative: Patient is a 28-year-old male presents after increased generalized weakness and cough, left-sided pleuritic chest and flank pain. LEFT sided Pleural Eff with drain Anesthesia Pre-op Phys. Exam Physician Exam Last Vital Signs Date Time Temp Pulse Resp B/P (MAP) Pulse Ox O2 Delivery O2 Flow Rate FiO2 06/15/19 12:00 97.6 105 20 112/66 (81) 97 06/15/19 09:00 Room Air Room Air Room Air 06/15/19 07:34 21 06/12/19 09:52 2.0 Neurologic: CN 2-12 intact Cardiovascular: RRR Respiratory: other - decrased Gastrointestinal: S/NT/ND Airway Exam Mallampati Classification 2 Mallampati Score: Class II MO: full ROM: full Dentures: no upper, no lower Anesthesia Pre-op A/P Studies Pre-op Studies: EKG - SR Risk Assessment & Plan Plan: General Pre-Antibiotics Drug: Lori Goddard CRNA Jun 15, 2019 15:37
[2019-06-15 16:00] VITALS: BP 125/75
--- NOTE | 2019-06-15 16:15 | Consultation ---
DATE OF CONSULTATION: 06/15/2019 CONSULTING PHYSICIAN: Ugo Darden M.D. REFERRING PHYSICIAN: Jeet Fallon M.D. HISTORY OF PRESENT ILLNESS: The patient is a 28-year-old male, who was admitted to [facility] [place] with shortness of breath. Workup including a chest CT scan demonstrated a left-sided loculated pleural effusion for which he underwent a pigtail catheter placement. Thoracic surgeon was then consulted for further evaluation. PAST MEDICAL HISTORY: None. PAST SURGICAL HISTORY: None. MEDICATIONS: Reviewed. ALLERGIES: The patient has no known drug allergies. FAMILY AND SOCIAL HISTORY: The patient lives with his in [place], [place]. He denies alcohol, illicit drug use, or tobacco abuse. PHYSICAL EXAMINATION: VITAL SIGNS: He is noted to be afebrile. His vitals are within normal limits. CARDIAC: Regular rate and rhythm. No gallops. No murmur. RESPIRATORY: Clear to auscultation. On the right with decreased crackles noted. On the left, there is a pigtail catheter noted in position. ABDOMEN: Soft, nondistended, nontender with normoactive bowel sounds. EXTREMITIES: No evidence of cyanosis, clubbing, or edema. LABORATORY AND DIAGNOSTIC DATA: Laboratory studies performed on June 14, 2019 showed WBC 11.3, hemoglobin 12, hematocrit 37, and a platelet count of 377. Sodium 140, potassium 4.1, chloride is 101, bicarb is 25, BUN is 7, creatinine 0.7, and glucose is 87. PT is 11, PTT is 39, INR is 1.1. A chest CT scan was performed on June 09, 2019, which demonstrated a left-sided loculated pleural effusion. ASSESSMENT/PLAN: This is a 28-year-old male, who was admitted to [facility] [place] with dyspnea. Workup including a chest CT scan demonstrated a loculated pleural effusion. The patient was evaluated at bedside. After reviewing his clinical database, I recommend he undergo left exploratory video-assisted thoracoscopic surgery with possible decortication. I want to thank you for referring this patient to my attention. If you have any questions in regard to this patient's clinical care, please do not hesitate to contact me. Olsen M.D. DR: DEVIN JOB#: [id number] CC: PRIETO
[2019-06-15 20:00] VITALS: BP 126/73
[2019-06-15] MEDS: cefTRIAXone 1 GM in D5W 55 ML IVPB SCH (20:34)
[2019-06-16] VITALS: BP 113/64
[2019-06-16] MEDS: NS w/KCl 20mEq 1000ml 1,000 ML IV SCH ×3 (03:30→17:13)
[2019-06-16 04:00] VITALS: BP 116/72
[2019-06-16] MEDS: Vancomycin 1.5gm/NS Premix IVPB SCH ×3 (05:00→17:12)
[2019-06-16 08:00] VITALS: BP 121/80
--- NOTE | 2019-06-16 08:45 | General Progress Note ---
Assessment/Plan Assessment/Plan: tachycardia loculated pleural effusion s/p drainage and catheter placement pneumonia leukocytosis PLAN iv antibiotics continue as is proceed wtih VATS monitor Ct for change follow up cultures ID evaluation noted impression, plan, and exam edited and reviewed in detail care discussed with RN Subjective Allergies: Coded Allergies: No Known Allergies (Unverified , 06/09/19) Subjective care noted for VATS catheter in place cultures negative ID noted Objective Last 24 Hour Vital Signs Date Time Temp Pulse Resp B/P (MAP) Pulse Ox O2 Delivery O2 Flow Rate FiO2 06/16/19 08:00 98.4 110 20 121/80 (94) 95 06/16/19 04:00 100 06/16/19 04:00 97.6 96 18 116/72 (87) 99 06/16/19 00:00 97.8 103 20 113/64 (80) 96 06/16/19 00:00 110 06/15/19 21:00 Room Air Room Air Room Air 06/15/19 20:00 99.7 120 20 126/73 (90) 96 06/15/19 20:00 122 06/15/19 16:00 120 06/15/19 16:00 98.1 101 20 125/75 (92) 96 06/15/19 12:00 97.6 105 20 112/66 (81) 97 06/15/19 11:31 126 06/15/19 09:00 Room Air Room Air Room Air Intake and Output 06/15/19 06/16/19 19:00 07:00 # Voids 2 # Bowel Movements 1 1 Laboratory Tests 06/15/19 16:00: Vancomycin Level Trough 16.3H Height (Feet): 5 Height (Inches): 10.00 Weight (Pounds): 257 Objective WDWN NAD reduced breath sounds bilaterally without rhonchi or wheeze S1S2RR tachy without MRG NABS nontender no HSM no CCE nonfocal Lee Fish MD Jun 16, 2019 08:45
[2019-06-16] MEDS: Heparin 5000 units/ml inj SUBQ SCH ×2 (09:20→21:48)
[2019-06-16 12:00] VITALS: BP 134/76
--- NOTE | 2019-06-16 13:27 | Surgery Progress Note ---
Surgery Progress Note Subjective Symptoms: improved, tolerating diet, voiding well, passing flatus, BM Objective Last 24 Hour Vital Signs Date Time Temp Pulse Resp B/P (MAP) Pulse Ox O2 Delivery O2 Flow Rate FiO2 06/16/19 12:00 110 06/16/19 12:00 99.0 93 20 134/76 (95) 95 06/16/19 09:00 Room Air Room Air Room Air 06/16/19 08:00 120 06/16/19 08:00 98.4 110 20 121/80 (94) 95 06/16/19 04:00 100 06/16/19 04:00 97.6 96 18 116/72 (87) 99 06/16/19 00:00 97.8 103 20 113/64 (80) 96 06/16/19 00:00 110 06/15/19 21:00 Room Air Room Air Room Air 06/15/19 20:00 99.7 120 20 126/73 (90) 96 06/15/19 20:00 122 06/15/19 16:00 120 06/15/19 16:00 98.1 101 20 125/75 (92) 96 I&O Intake and Output 06/15/19 06/16/19 19:00 07:00 Output Total 5 ml Balance -5 ml Chest Tube Drainage Total 5 ml # Voids 2 # Bowel Movements 1 1 Drains: other Cardiovascular: RSR Respiratory: decreased breath sounds Abdomen: soft, non-tender, present bowel sounds Extremities: no edema, no tenderness, no cyanosis Laboratory Tests Test 06/15/19 16:00 Vancomycin Level Trough 16.3 ug/mL (5.0-12.0) H Plan Problems: (1) Pleural effusion Assessment & Plan: Pulmonary arteries: Normal enhancement of the vascular structures were no filling defect to suggest pulmonary embolus or aortic dissection. Normal aorta with no aneurysmal dilatation. Aorta: No acute findings. No thoracic aortic aneurysm. Lungs: Lung ibarra reveal minimal posterior subpleural scarring versus atelectasis otherwise normal right hemithorax. Pleural space: There is a loculated left-sided pleural effusion with left lower lobe consolidation and air bronchograms consistent with pneumonia. There is left posterior, left paraspinal, subpleural atelectasis or mass seen on images 104 through 124. Remainder of the left lung field including left upper lobe are clear. Heart: Unremarkable. No cardiomegaly. No significant pericardial effusion. No evidence of RV dysfunction. Bones/joints: No acute fracture. No dislocation. Soft tissues: Unremarkable. Lymph nodes: Unremarkable. No enlarged lymph nodes. Upper abdomen: Diffuse fatty liver. Diverticulosis of the colon with no signs of diverticulitis. The remainder of the visualized upper abdominal structures are unremarkable. IMPRESSION: 1. No pulmonary embolus or aortic dissection. 2. Loculated left-sided pleural effusion with left lower lobe infiltrate and associated areas of atelectasis along the subpleural spaces, difficult to exclude a mass. Follow-up with CT in 3-4 months following treatment recommended to evaluate resolution. 3. Diffuse fatty liver. Diverticulosis with no signs of diverticulitis. (2) Pneumonia Assessment & Plan: IV antibiotics Okay for diet CT reviewed personally Case discussed with patient and medical teams We will plan for radiological sampling/drainage of left-sided effusion if unable to will plan for chest tube placement Discussed with radiology plan for aspiration drain placement Discussed with radiology minimal output with additional drainage since drainage placement with couple 100 cc of fairly serous output. No purulence noted. Microbiology pending. Discussed with thoracic surgery. Chest x-ray noted over the past few days remains with a large loculated effusion on the left side. Chest tube still with drainage. Dr. Darden has seen patient VATS tuesday Thank you will follow with recommendations Jeet Fallon Jun 16, 2019 13:27
[2019-06-16 16:00] VITALS: BP 107/56
[2019-06-16 20:00] VITALS: BP 130/71
[2019-06-16] MEDS: cefTRIAXone 1 GM in D5W 55 ML IVPB SCH (21:45)
[2019-06-17] VITALS: BP 129/68
[2019-06-17] MEDS: Vancomycin 1.5gm/NS Premix IVPB SCH ×4 (00:07→16:34)
[2019-06-17] MEDS: NS w/KCl 20mEq 1000ml 1,000 ML IV SCH ×3 (03:51→19:30)
[2019-06-17 04:00] VITALS: BP 118/60
[2019-06-17 08:00] VITALS: BP 122/65
[2019-06-17] MEDS: Heparin 5000 units/ml inj SUBQ SCH ×2 (08:49→21:00)
--- NOTE | 2019-06-17 10:01 | Infectious Diseases Prog Note ---
Assessment/Plan Assessment/Plan A 1. empyema s/p drainage 2. pneumonia 3. leucocytosis improving 4. Fatty liver 5. Obesity P 1. continue iv vancomycin, ceftriaxone, Flagyl 2. will have VATS tomorrow Subjective ROS Limited/Unobtainable: No Constitutional: Reports: no symptoms, other - feels better Respiratory: Reports: dry cough; Denies: shortness of breath Gastrointestinal/Abdominal: Reports: no symptoms Genitourinary: Reports: no symptoms Musculoskeletal: Reports: no symptoms Allergies: Coded Allergies: No Known Allergies (Unverified , 06/09/19) Objective Vital Signs Last 24 Hour Vital Signs Date Time Temp Pulse Resp B/P (MAP) Pulse Ox O2 Delivery O2 Flow Rate FiO2 06/17/19 09:00 Room Air Room Air Room Air 06/17/19 08:00 98.1 109 18 122/65 (84) 96 06/17/19 08:00 111 06/17/19 04:00 98.3 102 18 118/60 (79) 97 06/17/19 04:00 125 06/17/19 00:00 117 06/17/19 00:00 98.9 100 18 129/68 (88) 97 06/16/19 21:00 Room Air Room Air Room Air 06/16/19 20:00 99.0 105 18 130/71 (90) 95 06/16/19 20:00 127 06/16/19 16:00 109 06/16/19 16:00 98.8 107 18 107/56 (73) 96 06/16/19 12:00 110 06/16/19 12:00 99.0 93 20 134/76 (95) 95 Height (Feet): 5 Height (Inches): 10.00 Weight (Pounds): 257 General Appearance: no acute distress HEENT: mucous membranes moist Respiratory/Chest: lungs clear, other - left side chest drain Abdomen: soft, non tender Extremities: no edema Neurologic/Psychiatric: alert, oriented x 3, responsive Current Medications Medications (Trade) Dose Ordered Sig/Thiago Route PRN Reason Start Time Stop Time Status Last Admin Dose Admin Acetaminophen (Tylenol) 650 mg Q6H PRN ORAL Mild Pain/Temp > 100.5 06/10/19 07:45 07/10/19 07:44 06/14/19 21:31 Ceftriaxone Sodium 1 gm/ Dextrose 55 ml @ 110 mls/hr Q24H IVPB 06/17/19 21:00 06/25/19 20:59 Diphenhydramine HCl (Benadryl) 25 mg Q6H PRN ORAL itching 06/10/19 07:45 07/10/19 07:44 Guaifenesin (Robitussin) 300 mg Q4H PRN ORAL For Cough 06/13/19 08:15 07/13/19 08:14 06/13/19 08:48 Heparin Sodium (Porcine) (Heparin 5000 units/ml) 5,000 units EVERY 12 HOURS SUBQ 06/10/19 09:00 07/10/19 08:59 06/17/19 08:49 Metronidazole 100 ml @ 100 mls/hr Q8H IVPB 06/17/19 12:00 06/25/19 11:59 Ondansetron HCl (Zofran) 4 mg Q6H PRN IVP Nausea & Vomiting 06/10/19 07:45 07/10/19 07:44 Potassium Chloride/Sodium Chloride 1,000 ml @ 125 mls/hr Q8H IV 06/10/19 19:30 07/10/19 19:29 06/17/19 03:51 Vancomycin HCl (Vanco rx to dose) 1 ea DAILY MISC 06/10/19 09:00 07/10/19 08:59 06/15/19 09:00 Vancomycin/Sodium Chloride 275 ml @ 137.5 mls/ hr Q6H IVPB 06/14/19 23:00 06/19/19 22:59 06/17/19 05:37 Stone Estrada MD Jun 17, 2019 10:01
--- NOTE | 2019-06-17 10:55 | General Progress Note ---
Assessment/Plan Assessment/Plan: tachycardia loculated pleural effusion s/p drainage and catheter placement pneumonia leukocytosis PLAN iv antibiotics continue as is proceed wtih VATS monitor Ct for change follow up cultures ID evaluation noted impression, plan, and exam edited and reviewed in detail care discussed with RN Subjective Allergies: Coded Allergies: No Known Allergies (Unverified , 06/09/19) Subjective care noted for VATS in am catheter in place cultures negative ID noted Objective Last 24 Hour Vital Signs Date Time Temp Pulse Resp B/P (MAP) Pulse Ox O2 Delivery O2 Flow Rate FiO2 06/17/19 09:00 Room Air Room Air Room Air 06/17/19 08:00 98.1 109 18 122/65 (84) 96 06/17/19 08:00 111 06/17/19 04:00 98.3 102 18 118/60 (79) 97 06/17/19 04:00 125 06/17/19 00:00 117 06/17/19 00:00 98.9 100 18 129/68 (88) 97 06/16/19 21:00 Room Air Room Air Room Air 06/16/19 20:00 99.0 105 18 130/71 (90) 95 06/16/19 20:00 127 06/16/19 16:00 109 06/16/19 16:00 98.8 107 18 107/56 (73) 96 06/16/19 12:00 110 06/16/19 12:00 99.0 93 20 134/76 (95) 95 Intake and Output 06/16/19 06/17/19 19:00 07:00 Intake Total 1115 ml 1700 ml Output Total 1000 ml 5 ml Balance 115 ml 1695 ml Intake Oral 990 ml IV Total 125 ml 1700 ml Output Urine Total 1000 ml Chest Tube Drainage Total 5 ml # Voids 3 # Bowel Movements 3 Height (Feet): 5 Height (Inches): 10.00 Weight (Pounds): 257 Objective WDWN NAD reduced breath sounds bilaterally without rhonchi or wheeze S1S2RR tachy without MRG NABS nontender no HSM no CCE nonfocal Lee Fish MD Jun 17, 2019 10:55
[2019-06-17 12:00] VITALS: BP 110/59
--- NOTE | 2019-06-17 12:18 | Surgery Progress Note ---
Surgery Progress Note Subjective Additional Comments OR tomorrow all questions answered orders placed Objective Last 24 Hour Vital Signs Date Time Temp Pulse Resp B/P (MAP) Pulse Ox O2 Delivery O2 Flow Rate FiO2 06/17/19 12:00 99.4 114 19 110/59 (76) 94 06/17/19 09:00 Room Air Room Air Room Air 06/17/19 08:00 98.1 109 18 122/65 (84) 96 06/17/19 08:00 111 06/17/19 04:00 98.3 102 18 118/60 (79) 97 06/17/19 04:00 125 06/17/19 00:00 117 06/17/19 00:00 98.9 100 18 129/68 (88) 97 06/16/19 21:00 Room Air Room Air Room Air 06/16/19 20:00 99.0 105 18 130/71 (90) 95 06/16/19 20:00 127 06/16/19 16:00 109 06/16/19 16:00 98.8 107 18 107/56 (73) 96 I&O Intake and Output 06/16/19 06/17/19 19:00 07:00 Intake Total 1115 ml 1700 ml Output Total 1000 ml 5 ml Balance 115 ml 1695 ml Intake Oral 990 ml IV Total 125 ml 1700 ml Output Urine Total 1000 ml Chest Tube Drainage Total 5 ml # Voids 3 # Bowel Movements 3 Dressing: other Wound: other Drains: other Cardiovascular: RSR Respiratory: decreased breath sounds Abdomen: soft, present bowel sounds Extremities: no cyanosis Plan Problems: (1) Pleural effusion Assessment & Plan: Pulmonary arteries: Normal enhancement of the vascular structures were no filling defect to suggest pulmonary embolus or aortic dissection. Normal aorta with no aneurysmal dilatation. Aorta: No acute findings. No thoracic aortic aneurysm. Lungs: Lung ibarra reveal minimal posterior subpleural scarring versus atelectasis otherwise normal right hemithorax. Pleural space: There is a loculated left-sided pleural effusion with left lower lobe consolidation and air bronchograms consistent with pneumonia. There is left posterior, left paraspinal, subpleural atelectasis or mass seen on images 104 through 124. Remainder of the left lung field including left upper lobe are clear. Heart: Unremarkable. No cardiomegaly. No significant pericardial effusion. No evidence of RV dysfunction. Bones/joints: No acute fracture. No dislocation. Soft tissues: Unremarkable. Lymph nodes: Unremarkable. No enlarged lymph nodes. Upper abdomen: Diffuse fatty liver. Diverticulosis of the colon with no signs of diverticulitis. The remainder of the visualized upper abdominal structures are unremarkable. IMPRESSION: 1. No pulmonary embolus or aortic dissection. 2. Loculated left-sided pleural effusion with left lower lobe infiltrate and associated areas of atelectasis along the subpleural spaces, difficult to exclude a mass. Follow-up with CT in 3-4 months following treatment recommended to evaluate resolution. 3. Diffuse fatty liver. Diverticulosis with no signs of diverticulitis. (2) Pneumonia Assessment & Plan: IV antibiotics Okay for diet CT reviewed personally Case discussed with patient and medical teams We will plan for radiological sampling/drainage of left-sided effusion if unable to will plan for chest tube placement Discussed with radiology plan for aspiration drain placement Discussed with radiology minimal output with additional drainage since drainage placement with couple 100 cc of fairly serous output. No purulence noted. Microbiology pending. Discussed with thoracic surgery. Chest x-ray noted over the past few days remains with a large loculated effusion on the left side. Chest tube still with drainage. Dr. Darden has seen patient VATS tuesday Thank you will follow with recommendations Jeet Fallon Jun 17, 2019 12:18
[2019-06-17] MEDS ORDERED: NS 275ml ONE (14:00)
[2019-06-17 16:00] VITALS: BP 108/54
[2019-06-17 20:00] VITALS: BP 105/64
[2019-06-17] MEDS ORDERED: cefTRIAXone 1 GM in D5W 55 ML IVPB SCH (21:00)
[2019-06-17] MEDS: Vancomycin 1.25gm/NS Premix IVPB SCH (22:56)
[2019-06-18] VITALS (13 sets, daily range): BP systolic 97–142; BP diastolic 59–103
[2019-06-18] MEDS: NS w/KCl 20mEq 1000ml 1,000 ML IV SCH ×2 (03:20→11:30)
[2019-06-18] MEDS: Vancomycin 1.25gm/NS Premix IVPB SCH ×2 (04:36→11:00)
[2019-06-18 06:43] LABS: BASOPHILS % (AUTO) 2.1 % (0.0-2.0); EOSINOPHILS % (AUTO) 1.3 % (0.0-3.0); HEMATOCRIT 37.7 % (42.0-52.0); HEMOGLOBIN 12.9 G/DL (14.2-18.0); LYMPHOCYTES % (AUTO) 9.8 % (20.0-45.0); MEAN CORPUSCULAR VOLUME 90 FL (80-99); MONOCYTES % (AUTO) 14.5 % (1.0-10.0); NEUTROPHILS % (AUTO) 72.2 % (45.0-75.0); PLATELET COUNT 453 K/UL (150-450); WHITE BLOOD COUNT 8.5 K/UL (4.8-10.8)
[2019-06-18 07:14] LABS: INR 1.1 (0.9-1.1)
[2019-06-18 08:02] LABS: ANION GAP 11 mmol/L (5-15); BLOOD UREA NITROGEN 6 mg/dL (7-18); CALCIUM 9.3 MG/DL (8.5-10.1); CARBON DIOXIDE 28 MMOL/L (21-32); CHLORIDE 103 MMOL/L (98-107); CREATININE 0.9 MG/DL (0.55-1.30); POTASSIUM 4.3 MMOL/L (3.5-5.1); SODIUM 141 MMOL/L (136-145)
[2019-06-18] MEDS: Heparin 5000 units/ml inj SUBQ SCH ×2 (09:00→20:31)
[2019-06-18] MEDS ORDERED: LR 1000ml 1,000 ML IVLG SCH (10:47)
--- NOTE | 2019-06-18 10:50 | Immediate Post-Op Evaluation ---
Immediate Post-Op Evalulation Immediate Post-Op Evalulation Procedure: VATS Date of Evaluation: Jun 18, 2019 Time of Evaluation: 16:47 IV Fluids: 1000 LR Blood Products: 0 Estimated Blood Loss: 200 Urinary Output: 200 Blood Pressure Systolic: 142 Blood Pressure Diastolic: 103 Pulse Rate: 144 Respiratory Rate: 20 - Mech Vent O2 Sat by Pulse Oximetry: 97 Temperature (Fahrenheit): 99 Pain Score (1-10): 3 Nausea: No Vomiting: No Complications 0 Patient Status: no response, patent, ventilated, none Hydration Status: adequate Dru Grams Ancef IV Given Within 1 Hr of Incision: Yes Time Given: 13:26 Gabriel Artis MD Jun 18, 2019 10:50
[2019-06-18] MEDS ORDERED: Atropine Sulfate 0.4mg/ml inj IVP PRN ×2 (11:00→16:45)
[2019-06-18] MEDS ORDERED: Midazolam 2mg/2ml Inj IVP PRN ×2 (11:00→16:45)
[2019-06-18] MEDS ORDERED: fentaNYL 100 mcg/2 mL IV PRN ×2 (11:00→16:45)
[2019-06-18] MEDS ORDERED: Acetaminophen (Non formulary) 100 ML IV ONE (11:00)
[2019-06-18] MEDS ORDERED: oxyCODONE HCL/Acetaminophen 5/325mg ORAL PRN ×2 (11:00→17:00)
[2019-06-18] MEDS ORDERED: LORazepam Inj 2mg/ml 1ml IV PRN ×2 (11:00→16:45)
[2019-06-18] MEDS ORDERED: Metoclopramide 10mg/2ml Inj IVP PRN ×2 (11:00→17:00)
[2019-06-18] MEDS ORDERED: Labetalol 5mg/ml 20ml vial IV PRN ×3 (11:00→19:15)
[2019-06-18] MEDS ORDERED: HYDROcodone/Acetamin 5/325 tab ORAL PRN ×2 (11:00→17:00)
[2019-06-18] MEDS ORDERED: Meperidine 25mg/0.5ml Inj (FOR RIGORS ONLY) IV PRN ×2 (11:00→16:45)
[2019-06-18] MEDS ORDERED: HYDROcodone/Acetamin 7.5/325 tab ORAL PRN ×2 (11:00→17:00)
[2019-06-18] MEDS ORDERED: Hydromorphone 0.5mg/0.5ml inj IVP PRN ×2 (11:00→16:45)
[2019-06-18] MEDS ORDERED: DiphenhydrAMINE 50mg/ml Inj IVP PRN ×2 (11:00→16:45)
--- NOTE | 2019-06-18 11:05 | Infectious Diseases Prog Note ---
Assessment/Plan Assessment/Plan antibiotics : vancomycin iv, ceftriaxone, flagyl A 1. empyema s/p drainage 2. pneumonia 3. leucocytosis improving P 1. continue iv vancomycin, ceftriaxone, flagyl 2. will follow up cultures 3. VATS planned today Subjective Constitutional: Denies: fever, chills Respiratory: Reports: shortness of breath - decreased, productive cough - decreased Gastrointestinal/Abdominal: Denies: nausea, vomiting, diarrhea Musculoskeletal: Denies: pain Allergies: Coded Allergies: No Known Allergies (Unverified , 06/09/19) Objective Vital Signs Last 24 Hour Vital Signs Date Time Temp Pulse Resp B/P (MAP) Pulse Ox O2 Delivery O2 Flow Rate FiO2 06/18/19 09:00 Room Air Room Air Room Air 06/18/19 08:00 107 06/18/19 08:00 98.4 103 19 112/65 (81) 96 06/18/19 04:00 101 06/18/19 04:00 97.4 111 18 107/71 (83) 96 06/18/19 00:00 97.8 110 20 102/62 (75) 96 06/18/19 00:00 107 06/17/19 21:00 Room Air Room Air Room Air 06/17/19 20:50 110 22 96 Room Air 21 06/17/19 20:00 98.2 116 18 105/64 (78) 95 06/17/19 20:00 122 06/17/19 16:00 98.1 115 19 108/54 (72) 94 06/17/19 16:00 116 06/17/19 12:00 99.4 114 19 110/59 (76) 94 06/17/19 12:00 112 Height (Feet): 5 Height (Inches): 10.00 Weight (Pounds): 248 Respiratory/Chest: lungs clear Cardiovascular: normal rate, regular rhythm, no gallop/murmur Abdomen: soft, non tender Extremities: no edema Laboratory Tests Test 06/17/19 16:15 06/18/19 05:57 Vancomycin Level Trough 22.7 ug/mL (5.0-12.0) H White Blood Count 8.5 K/UL (4.8-10.8) Red Blood Count 4.20 M/UL (4.70-6.10) L Hemoglobin 12.9 G/DL (14.2-18.0) L Hematocrit 37.7 % (42.0-52.0) L Mean Corpuscular Volume 90 FL (80-99) Mean Corpuscular Hemoglobin 30.7 PG (27.0-31.0) Mean Corpuscular Hemoglobin Concent 34.1 G/DL (32.0-36.0) Red Cell Distribution Width 12.0 % (11.6-14.8) Platelet Count 453 K/UL (150-450) H Mean Platelet Volume 5.7 FL (6.5-10.1) L Neutrophils (%) (Auto) 72.2 % (45.0-75.0) Lymphocytes (%) (Auto) 9.8 % (20.0-45.0) L Monocytes (%) (Auto) 14.5 % (1.0-10.0) H Eosinophils (%) (Auto) 1.3 % (0.0-3.0) Basophils (%) (Auto) 2.1 % (0.0-2.0) H Prothrombin Time 11.3 SEC (9.30-11.50) Prothromb Time International Ratio 1.1 (0.9-1.1) Activated Partial Thromboplast Time 30 SEC (23-33) Sodium Level 141 MMOL/L (136-145) Potassium Level 4.3 MMOL/L (3.5-5.1) Chloride Level 103 MMOL/L (98-107) Carbon Dioxide Level 28 MMOL/L (21-32) Anion Gap 11 mmol/L (5-15) Blood Urea Nitrogen 6 mg/dL (7-18) L Creatinine 0.9 MG/DL (0.55-1.30) Estimat Glomerular Filtration Rate > 60 mL/min (>60) Glucose Level 94 MG/DL (74-106) Calcium Level 9.3 MG/DL (8.5-10.1) Current Medications Medications (Trade) Dose Ordered Sig/Thiago Route PRN Reason Start Time Stop Time Status Last Admin Dose Admin Acetaminophen 100 ml @ 400 mls/hr NOW ONCE IV 06/18/19 11:00 06/18/19 11:14 UNV Acetaminophen (Tylenol) 650 mg Q6H PRN ORAL Mild Pain/Temp > 100.5 06/10/19 07:45 07/10/19 07:44 06/14/19 21:31 Acetaminophen/ Hydrocodone Bitart ([place] 5/325) 1 tab Q1H PRN ORAL Mild Pain (Pain Scale 1-3) 06/18/19 11:00 UNV Acetaminophen/ Hydrocodone Bitart ([place] 7.5/325) 1 tab Q1H PRN ORAL Moderate Pain (Pain Scale 4-6) 06/18/19 11:00 UNV Al Hydroxide/Mg Hydroxide (Mylanta) 15 ml Q1H PRN ORAL gi upset 06/18/19 11:00 UNV Atropine Sulfate (Atropine 0.4mg/ ml) 0.5 mg Q5M PRN IVP HR<40 06/18/19 11:00 UNV Ceftriaxone Sodium 1 gm/ Dextrose 55 ml @ 110 mls/hr Q24H IVPB 06/17/19 21:00 06/25/19 20:59 06/17/19 21:46 Diphenhydramine HCl (Benadryl) 25 mg Q15M PRN IVP Itching 06/18/19 11:00 UNV Diphenhydramine HCl (Benadryl) 25 mg Q6H PRN ORAL itching 06/10/19 07:45 07/10/19 07:44 Fentanyl Citrate (Sublimaze 100 mcg/2 mL) 25 mcg Q10M PRN IV Moderate Pain (Pain Scale 4-6) 06/18/19 11:00 UNV Guaifenesin (Robitussin) 300 mg Q4H PRN ORAL For Cough 06/13/19 08:15 07/13/19 08:14 06/13/19 08:48 Heparin Sodium (Porcine) (Heparin 5000 units/ml) 5,000 units EVERY 12 HOURS SUBQ 06/10/19 09:00 07/10/19 08:59 06/17/19 08:49 Hydralazine HCl (Apresoline) 5 mg Q30M PRN IV SBP>160 / DBP>90 06/18/19 11:00 UNV Hydromorphone HCl (Dilaudid) 0.5 mg Q15M PRN IVP Severe Pain (Pain Scale 7-10) 06/18/19 11:00 UNV Labetalol HCl (Normodyne) 5 mg Q10M PRN IV SBP>160 / DBP>90 06/18/19 11:00 06/19/19 10:59 UNV Lactated Ringer's 1,000 ml @ 10 mls/hr Q24H IVLG 06/18/19 10:47 06/18/19 12:46 UNV Lorazepam (Ativan 2mg/ml 1ml) 1 mg Q15M PRN IV For Anxiety 06/18/19 11:00 UNV Meperidine HCl (Demerol) 25 mg Q5M PRN IV SHIVERING.MAY REPEAT X 1 06/18/19 11:00 UNV Metoclopramide HCl (Reglan) 10 mg Q1H PRN IVP Nausea & Vomiting 06/18/19 11:00 UNV Metronidazole 100 ml @ 100 mls/hr Q8H IVPB 06/17/19 12:00 06/25/19 11:59 06/18/19 03:20 Midazolam HCl (Versed 2mg/2ml vial) 1 mg Q15M PRN IVP For Anxiety 06/18/19 11:00 UNV Ondansetron HCl (Zofran) 4 mg Q1H PRN IVP Nausea & Vomiting 06/18/19 11:00 UNV Ondansetron HCl (Zofran) 4 mg Q6H PRN IVP Nausea & Vomiting 06/10/19 07:45 07/10/19 07:44 Oxycodone/ Acetaminophen (Percocet 5-325) 1 tab Q1H PRN ORAL Severe Pain (Pain Scale 7-10) 06/18/19 11:00 UNV Potassium Chloride/Sodium Chloride 1,000 ml @ 125 mls/hr Q8H IV 06/10/19 19:30 07/10/19 19:29 06/18/19 03:20 Vancomycin HCl (Vanco rx to dose) 1 ea DAILY MISC 06/10/19 09:00 07/10/19 08:59 06/15/19 09:00 Vancomycin/Sodium Chloride 275 ml @ 183.333 mls/hr Q6H IVPB 06/17/19 23:00 06/22/19 22:59 06/18/19 04:36 Ishan Foster MD Jun 18, 2019 11:05
[2019-06-18] MEDS ORDERED: Lidocaine 1% MPF 10mg/ml 5ml ONE (12:35)
[2019-06-18] MEDS ORDERED: Propofol 200mg/20ml IV ONE (12:35)
[2019-06-18] MEDS ORDERED: Dexamethasone 4mg/ml vial ONE (12:35)
[2019-06-18] MEDS ORDERED: Sodium Chloride 10ml vial INJ ONE (12:35)
[2019-06-18] MEDS ORDERED: fentaNYL 100 mcg/2 mL IV ONE ×2 (12:36→15:43)
[2019-06-18] MEDS ORDERED: Cefepime 1gm vial ONE (12:43)
[2019-06-18] MEDS ORDERED: Lidocaine 1% 10mg/ml/Epi 0.005mg/ml 30ml vial INJ ONE (12:43)
[2019-06-18] MEDS ORDERED: LR 1000ml ONE (12:50)
[2019-06-18] MEDS ORDERED: Metoprolol Tartrate 5mg/5ml Inj ONE (12:50)
[2019-06-18] MEDS ORDERED: AMIKACIN 500 MG TOPIC ONE (13:00)
[2019-06-18] MEDS ORDERED: Sterile Talc Powder 4gm spray IPLEURAL ONE (13:00)
--- NOTE | 2019-06-18 13:10 | Pre-Procedure Note/Attestation ---
Pre-Procedure Note/Attestation Complete Prior to Procedure Planned Procedure: left Procedure Narrative: Exploratory left VATS with decortication Indications for Procedure Pre-Operative Diagnosis: Left loculated pleural effusion Attestation I attest that I discussed the nature of the procedure; its benefits; risks and complications; and alternatives (and the risks and benefits of such alternatives ), prior to the procedure, with the patient (or the patient's legal sales utility representative). I attest that, if there was a reasonable possibility of needing a blood transfusion, the patient (or the patient's legal sales utility representative) was given the [facility] standardized written summary, pursuant to the Markel Isaias Blood Safety Act ([place] Health and Safety Code # 1645, as amended). I attest that I re-evaluated the patient just prior to the surgery and that there has been no change in the patient's H&P, except as documented below: Ugo Darden MD Jun 18, 2019 13:10
[2019-06-18] MEDS ORDERED: NS Irrig 1000ml IRRIG ONE ×2 (13:41→14:39)
[2019-06-18] MEDS ORDERED: NS Irrig 4000ml IRRIG ONE ×2 (13:41→14:37)
[2019-06-18] MEDS ORDERED: Rocuronium Bromide 50mg/5ml Inj IV ONE (13:49)
--- NOTE | 2019-06-18 14:19 | Diagnostic Imaging Report ---
Indication: Shortness of breath Technique: One view of the chest Comparison: 06/14/2019 Findings: Left chest pigtail drainage catheter remains. There is apparent interim decrease in size of previously demonstrated left pleural effusion. There is decreased left lung atelectatic changes and infiltrate. Right lung and pleural space remain clear Impression: Apparent decreased in size of previously demonstrated left pleural fluid collection. Drainage catheter remains in good position. There is evidence of decreased left lung parenchymal disease as well
--- NOTE | 2019-06-18 15:43 | Surgery Progress Note ---
Surgery Progress Note Subjective Additional Comments OR today Objective Last 24 Hour Vital Signs Date Time Temp Pulse Resp B/P (MAP) Pulse Ox O2 Delivery O2 Flow Rate FiO2 06/18/19 12:00 99.5 101 19 104/59 (74) 97 06/18/19 12:00 115 06/18/19 09:00 Room Air Room Air Room Air 06/18/19 08:00 107 06/18/19 08:00 98.4 103 19 112/65 (81) 96 06/18/19 04:00 101 06/18/19 04:00 97.4 111 18 107/71 (83) 96 06/18/19 00:00 97.8 110 20 102/62 (75) 96 06/18/19 00:00 107 06/17/19 21:00 Room Air Room Air Room Air 06/17/19 20:50 110 22 96 Room Air 21 06/17/19 20:00 98.2 116 18 105/64 (78) 95 06/17/19 20:00 122 06/17/19 16:00 98.1 115 19 108/54 (72) 94 06/17/19 16:00 116 I&O Intake and Output 06/17/19 06/18/19 19:00 07:00 Intake Total 945 ml 1145.000 ml Output Total 1900 ml 665 ml Balance -955 ml 480.000 ml Intake Oral 820 ml IV Total 125 ml 1145.000 ml Output Urine Total 1900 ml 650 ml Chest Tube Drainage Total 0 ml 15 ml # Bowel Movements 1 Dressing: other Wound: other Cardiovascular: RSR Respiratory: decreased breath sounds Abdomen: soft, non-tender, present bowel sounds Extremities: no edema, no tenderness, no cyanosis Laboratory Tests Test 06/17/19 16:15 06/18/19 05:57 Vancomycin Level Trough 22.7 ug/mL (5.0-12.0) H White Blood Count 8.5 K/UL (4.8-10.8) Red Blood Count 4.20 M/UL (4.70-6.10) L Hemoglobin 12.9 G/DL (14.2-18.0) L Hematocrit 37.7 % (42.0-52.0) L Mean Corpuscular Volume 90 FL (80-99) Mean Corpuscular Hemoglobin 30.7 PG (27.0-31.0) Mean Corpuscular Hemoglobin Concent 34.1 G/DL (32.0-36.0) Red Cell Distribution Width 12.0 % (11.6-14.8) Platelet Count 453 K/UL (150-450) H Mean Platelet Volume 5.7 FL (6.5-10.1) L Neutrophils (%) (Auto) 72.2 % (45.0-75.0) Lymphocytes (%) (Auto) 9.8 % (20.0-45.0) L Monocytes (%) (Auto) 14.5 % (1.0-10.0) H Eosinophils (%) (Auto) 1.3 % (0.0-3.0) Basophils (%) (Auto) 2.1 % (0.0-2.0) H Prothrombin Time 11.3 SEC (9.30-11.50) Prothromb Time International Ratio 1.1 (0.9-1.1) Activated Partial Thromboplast Time 30 SEC (23-33) Sodium Level 141 MMOL/L (136-145) Potassium Level 4.3 MMOL/L (3.5-5.1) Chloride Level 103 MMOL/L (98-107) Carbon Dioxide Level 28 MMOL/L (21-32) Anion Gap 11 mmol/L (5-15) Blood Urea Nitrogen 6 mg/dL (7-18) L Creatinine 0.9 MG/DL (0.55-1.30) Estimat Glomerular Filtration Rate > 60 mL/min (>60) Glucose Level 94 MG/DL (74-106) Calcium Level 9.3 MG/DL (8.5-10.1) Plan Problems: (1) Pleural effusion Assessment & Plan: Pulmonary arteries: Normal enhancement of the vascular structures were no filling defect to suggest pulmonary embolus or aortic dissection. Normal aorta with no aneurysmal dilatation. Aorta: No acute findings. No thoracic aortic aneurysm. Lungs: Lung ibarra reveal minimal posterior subpleural scarring versus atelectasis otherwise normal right hemithorax. Pleural space: There is a loculated left-sided pleural effusion with left lower lobe consolidation and air bronchograms consistent with pneumonia. There is left posterior, left paraspinal, subpleural atelectasis or mass seen on images 104 through 124. Remainder of the left lung field including left upper lobe are clear. Heart: Unremarkable. No cardiomegaly. No significant pericardial effusion. No evidence of RV dysfunction. Bones/joints: No acute fracture. No dislocation. Soft tissues: Unremarkable. Lymph nodes: Unremarkable. No enlarged lymph nodes. Upper abdomen: Diffuse fatty liver. Diverticulosis of the colon with no signs of diverticulitis. The remainder of the visualized upper abdominal structures are unremarkable. IMPRESSION: 1. No pulmonary embolus or aortic dissection. 2. Loculated left-sided pleural effusion with left lower lobe infiltrate and associated areas of atelectasis along the subpleural spaces, difficult to exclude a mass. Follow-up with CT in 3-4 months following treatment recommended to evaluate resolution. 3. Diffuse fatty liver. Diverticulosis with no signs of diverticulitis. (2) Pneumonia Assessment & Plan: IV antibiotics Okay for diet CT reviewed personally Case discussed with patient and medical teams We will plan for radiological sampling/drainage of left-sided effusion if unable to will plan for chest tube placement Discussed with radiology plan for aspiration drain placement Discussed with radiology minimal output with additional drainage since drainage placement with couple 100 cc of fairly serous output. No purulence noted. Microbiology pending. Discussed with thoracic surgery. Chest x-ray noted over the past few days remains with a large loculated effusion on the left side. Chest tube still with drainage. Dr. Darden has seen patient VATS tuesday Thank you will follow with recommendations Jeet Fallon Jun 18, 2019 15:43
[2019-06-18] MEDS ORDERED: DiphenhydrAMINE 25mg Tab ORAL PRN (17:00)
[2019-06-18] MEDS ORDERED: guaiFENesin 100mg/5ml Liq ud ORAL PRN (17:00)
[2019-06-18] MEDS: Vancomycin 1.25gm/NS Premix 275 ML IVPB SCH ×2 (17:21→23:12)
[2019-06-18 17:29] LABS: HEMATOCRIT 40.3 % (42.0-52.0); HEMOGLOBIN 13.1 G/DL (14.2-18.0); MEAN CORPUSCULAR VOLUME 93 FL (80-99); PLATELET COUNT 602 K/UL (150-450); RED BLOOD COUNT 4.32 M/UL (4.70-6.10); RED CELL DISTRIBUTION WIDTH 13.6 % (11.6-14.8)
[2019-06-18] MEDS ORDERED: D5 1/2NS w/KCl 20mEq 1,000 ML IV SCH ×2 (17:30)
[2019-06-18 17:35] LABS: WHITE BLOOD COUNT 24.1 K/UL (4.8-10.8)
--- NOTE | 2019-06-18 17:55 | General Progress Note ---
Assessment/Plan Assessment/Plan: tachycardia loculated pleural effusion s/p drainage and catheter placement pneumonia leukocytosis acute respiratory failure s/p VATS PLAN iv antibiotics continue as is wean in am follow up cultures ID evaluation noted impression, plan, and exam edited and reviewed in detail care discussed with RN Subjective Allergies: Coded Allergies: No Known Allergies (Unverified , 06/09/19) Subjective care noted post vats ID noted Objective Last 24 Hour Vital Signs Date Time Temp Pulse Resp B/P (MAP) Pulse Ox O2 Delivery O2 Flow Rate FiO2 06/18/19 16:45 140 14 100 06/18/19 16:40 141 14 98 Mechanical Ventilator 100 06/18/19 16:39 144 20 97 06/18/19 12:00 99.5 101 19 104/59 (74) 97 06/18/19 12:00 115 06/18/19 09:00 Room Air Room Air Room Air 06/18/19 08:00 107 06/18/19 08:00 98.4 103 19 112/65 (81) 96 06/18/19 04:00 101 06/18/19 04:00 97.4 111 18 107/71 (83) 96 06/18/19 00:00 97.8 110 20 102/62 (75) 96 06/18/19 00:00 107 06/17/19 21:00 Room Air Room Air Room Air 06/17/19 20:50 110 22 96 Room Air 21 06/17/19 20:00 98.2 116 18 105/64 (78) 95 06/17/19 20:00 122 Intake and Output 06/17/19 06/18/19 19:00 07:00 Intake Total 945 ml 1145.000 ml Output Total 1900 ml 665 ml Balance -955 ml 480.000 ml Intake Oral 820 ml IV Total 125 ml 1145.000 ml Output Urine Total 1900 ml 650 ml Chest Tube Drainage Total 0 ml 15 ml # Bowel Movements 1 Laboratory Tests 06/18/19 05:57: White Blood Count 8.5, Red Blood Count 4.20L, Hemoglobin 12.9L, Hematocrit 37.7L , Mean Corpuscular Volume 90, Mean Corpuscular Hemoglobin 30.7, Mean Corpuscular Hemoglobin Concent 34.1, Red Cell Distribution Width 12.0, Platelet Count 453H, Mean Platelet Volume 5.7L, Neutrophils (%) (Auto) 72.2, Lymphocytes (%) (Auto) 9.8L, Monocytes (%) (Auto) 14.5H, Eosinophils (%) (Auto) 1.3, Basophils (%) (Auto) 2.1H, Prothrombin Time 11.3, Prothromb Time International Ratio 1.1, Activated Partial Thromboplast Time 30, Sodium Level 141, Potassium Level 4.3, Chloride Level 103, Carbon Dioxide Level 28, Anion Gap 11, Blood Urea Nitrogen 6L, Creatinine 0.9, Estimat Glomerular Filtration Rate > 60, Glucose Level 94, Calcium Level 9.3 06/18/19 16:32: Arterial Blood pH 7.354, Arterial Blood Partial Pressure CO2 43.2, Arterial Blood Partial Pressure O2 94.8, Arterial Blood HCO3 23.5, Arterial Blood Oxygen Saturation 97.1, Arterial Blood Base Excess -2.0, Dat Test Positive 06/18/19 16:48: White Blood Count 24.1#*H, Red Blood Count 4.32L, Hemoglobin 13.1L, Hematocrit 40.3L, Mean Corpuscular Volume 93, Mean Corpuscular Hemoglobin 30.2, Mean Corpuscular Hemoglobin Concent 32.4, Red Cell Distribution Width 13.6, Platelet Count 602H, Mean Platelet Volume 6.4L, Neutrophils (%) (Auto) , Lymphocytes (%) (Auto) , Monocytes (%) (Auto) , Eosinophils (%) (Auto) , Basophils (%) (Auto) , Sodium Level [Pending], Potassium Level [Pending], Chloride Level [Pending], Carbon Dioxide Level [Pending], Blood Urea Nitrogen [Pending], Creatinine [ Pending], Estimat Glomerular Filtration Rate [Pending], Glucose Level [Pending] , Calcium Level [Pending], Neutrophils % (Manual) [Pending], Lymphocytes % ( Manual) [Pending], Platelet Estimate [Pending], Platelet Morphology [Pending], Ionized Calcium (Measured) [Pending], Phosphorus Level [Pending], Magnesium Level [Pending], Vancomycin Level Trough [Pending] Height (Feet): 5 Height (Inches): 10.00 Weight (Pounds): 248 Objective WDWN NAD reduced breath sounds bilaterally without rhonchi or wheeze S1S2RR tachy without MRG NABS nontender no HSM no CCE nonfocal intubated Lee Fish MD Jun 18, 2019 17:55
[2019-06-18 18:29] LABS: ANION GAP 11 mmol/L (5-15); BLOOD UREA NITROGEN 10 mg/dL (7-18); CALCIUM 9.1 MG/DL (8.5-10.1); CARBON DIOXIDE 24 MMOL/L (21-32); CHLORIDE 98 MMOL/L (98-107); CREATININE 1.2 MG/DL (0.55-1.30); PHOSPHORUS 5.4 MG/DL (2.5-4.9); POTASSIUM 5.8 MMOL/L (3.5-5.1); SODIUM 133 MMOL/L (136-145)
--- NOTE | 2019-06-18 19:30 | Operative Note - Dictated ---
DATE OF OPERATION: 06/18/2019 SURGEON: Ugo Darden M.D. CHEMIST INORGANIC SURGEON: Jeet Fallon M.D. PREOPERATIVE DIAGNOSIS: Left loculated pleural effusion. POSTOPERATIVE DIAGNOSIS: Left loculated pleural effusion. PROCEDURE PERFORMED: 1. Flexible bronchoscopy. 2. Removal of left pigtail catheter. 3. Left video-assisted thoracoscopic surgery. 4. Intrapleural pneumolysis. 5. Partial pleurectomy. 6. Decortication. 7. Primary repair of left upper lobe parenchymal air leak. 8. Intercostal nerve block. ANESTHESIA: Double-lumen general anesthesia. INDICATIONS: The patient is a 28-year-old male who was admitted to [facility] with respiratory distress associated with radiographic imaging study of loculated pleural effusion. Thoracic surgeon was then consulted for a definitive surgical care. The risks and benefits of the proposed operation were explained to the patient in detail including, but not limited to, bleeding, infection, air leak, need for blood transfusion, anesthetic complication, and of less than 1%. In addition, alternative versus no treatment options were also discussed. The patient fully understands the rationale behind the proposed operation with all questions answered to his satisfaction. DESCRIPTION OF PROCEDURE: After obtaining informed consent, the patient was then brought to the operating room and placed in supine position, a surgical time-out was performed. After induction of general anesthesia, arterial line, indwelling Cronin, and BEATRIZ hose stockings were placed. A flexible bronchoscope was introduced through the endotracheal tube. The trachea and sumit were inspected. The sumit was in midline sharp. The right tracheobronchial tree down to the subsegmental level was grossly normal and no endobronchial lesions were seen. Similarly, the left mainstem bronchus was intubated and no obvious endobronchial lesions were visualized at the subsegmental level. Minimal amount of mucopurulent secretions were lavaged and suctioned clear. The bronchoscope was pulled back and removed. The patient tolerated the procedure well with oxygen saturation greater than 96% throughout the procedure. Next, the patient was then placed in the right lateral decubitus position and the chest tube suture was cut and the chest tube was removed in the usual fashion. The entire left chest was then prepped and draped in the usual sterile fashion. A 2 cm incision was made at the fifth intercostal space in midaxillary line. Dissection was then carried down into the subcutaneous tissue. Entry into the left hemithorax was uneventful. After passing the Yankauer into the left hemithorax, we then suctioned out 30 mL of left pleural effusion and this was submitted to microbiology analysis as well as cytology. We then made a counter incision anterior to the midaxillary line anterior to the third intercostal space. This allowed the introduction of grasper into the left hemithorax. Under direct visualization, there was noted to be numerous adhesions tethering the lung to the surrounding chest wall. These adhesions were taken down using combination of sharp and blunt electrocauterization. There was numerous pleural exudates that were debrided off the chest wall and a software sales representative section was submitted for microbiologic analysis and remaining was submitted to Pathology. After mobilizing the entire lung from the surrounding chest wall, we then explored the major fissure and minor fissures for loculated fluids, and then proceeded to perform a partial pleurectomy stripping away a thickened portion of the parietal pleura; this was delivered off the surgical field. On the back table, the parietal pleura was sectioned in half; half was submitted for microbiology analysis and remaining was submitted to Pathology. A decortication process was then begun in the anterior surface of the left lower lobe and this was carried out posterolaterally. The left upper lobe appeared to be relatively disease-free and small areas of the pleural exudates were debrided off the visceral parietal surface. At the end of the operation, the entire chest was irrigated with two liters of warm saline solution. After suctioning, we then proceeded to examine the lung parenchyma. The lower lobe was freed away from the underlying diaphragm and deflected anteriorly. At the costophrenic angles, there were some pleural exudates in the costophrenic angle and this was debrided in the usual fashion. There was noted to be a small left upper lobe parenchymal air leak secondary to the takedown of the adhesions from the surrounding chest wall. This area of the parenchymal air leak was then closed primarily using a single firing of the Endostapler. The left upper lobe wedge resection was then submitted off the field as a wedge resection. The remaining chest cavity was then irrigated with two liters of antibiotic-containing solution. An intercostal nerve block with 60 mL of 0.25% Marcaine was performed from the 2nd to 8th intercostal space in the usual fashion. A 28-Upper Sorbian chest tube inserted into the left hemithorax and directly at the apex. The lung was allowed to inflate under direct visualization and the video camera was then removed. The chest tube was anchored at the skin level using 0 Ethibond suture x2 and then connected to a suction Pleur-evac. The wound was then reapproximated with two layers of 3-0 Vicryl suture and the skin was reapproximated with 4-0 Monocryl. Steri-Strips and dry dressing were applied. The patient tolerated the procedure well without any complications. Needle and sponges were correct. At the end of the operation, he remained intubated and transported to the intensive care unit in a satisfactory condition. EBL: Minimal. COMPLICATIONS: None. SPECIMENS SUBMITTED: 1. Left pleural effusion for microbiologic analysis and cytology. 2. Pleural exudates for microbiologic analysis and pathology. 3. Parietal pleura for microbiologic analysis and pathology. 4. Left upper lobe wedge resection. Olsen M.D. DR: AMEE JOB#: [id number] CC: PRIETO
[2019-06-18] MEDS: LORazepam Inj 2mg/ml 1ml IV PRN ×2 (19:37→23:13)
[2019-06-18] MEDS: D5 1/2NS 1,000 ML IV SCH (19:38)
--- NOTE | 2019-06-18 19:39 | Diagnostic Imaging Report ---
Indication: Tube placement Technique: One view of the chest Comparison: 11 hours earlier Findings: Interim endotracheal intubation, endotracheal tube tip projecting in the right mainstem bronchus. Interim resolution of previously demonstrated left-sided pleural fluid collection and removal of previously demonstrated pigtail drainage catheter. There is now large bore left chest tube in good position. There are ill-defined parenchymal opacities in the left midlung, probably representing areas of atelectasis but could represent areas of consolidation. There is a tiny left apical pneumothorax. There is a small amount of subcutaneous emphysema. The right lung and pleural space remain clear. The heart size is normal. Impression: Malpositioned endotracheal tube. Retraction recommended Postsurgical changes, as described
[2019-06-18 20:22] LABS: ANION GAP 16 mmol/L (5-15); BLOOD UREA NITROGEN 11 mg/dL (7-18); CALCIUM 8.9 MG/DL (8.5-10.1); CARBON DIOXIDE 23 MMOL/L (21-32); CHLORIDE 100 MMOL/L (98-107); CREATININE 1.4 MG/DL (0.55-1.30); POTASSIUM 5.2 MMOL/L (3.5-5.1); SODIUM 139 MMOL/L (136-145)
[2019-06-18] MEDS: Morphine Sulfate 2mg/ml Inj(IV/IM USE ONLY) IVP PRN (20:26)
--- NOTE | 2019-06-18 20:59 | Diagnostic Imaging Report ---
. Indication: Status post repositioning of endotracheal tube Technique: One view of the chest Comparison: One hour earlier Findings: Interim retraction of endotracheal tube, tip now projected 4 cm above the sumit, in good position. Left chest tube, pulmonary parenchymal opacities, and subcutaneous emphysema are again demonstrated. There is a sliver of a left apical pneumothorax again demonstrated. Normal heart size. Impression: Improved and now satisfactory position of endotracheal tube. Other stable findings as noted.
[2019-06-18] MEDS: cefTRIAXone 1 GM in D5W 55 ML IVPB SCH (21:05)
[2019-06-19] VITALS (27 sets, daily range): BP systolic 77–120; BP diastolic 54–79
[2019-06-19] MEDS: Vancomycin 1.25gm/NS Premix 275 ML IVPB SCH ×4 (04:20→22:11)
[2019-06-19] MEDS: Morphine Sulfate 2mg/ml Inj(IV/IM USE ONLY) IVP PRN ×2 (04:23→22:12)
[2019-06-19 05:26] LABS: BASOPHILS % (AUTO) 0.6 % (0.0-2.0); HEMATOCRIT 37.4 % (42.0-52.0); HEMOGLOBIN 12.8 G/DL (14.2-18.0); MEAN CORPUSCULAR VOLUME 89 FL (80-99); MONOCYTES % (AUTO) 11.5 % (1.0-10.0); NEUTROPHILS % (AUTO) 83.9 % (45.0-75.0); PLATELET COUNT 499 K/UL (150-450); RED BLOOD COUNT 4.18 M/UL (4.70-6.10); RED CELL DISTRIBUTION WIDTH 12.1 % (11.6-14.8); WHITE BLOOD COUNT 11.8 K/UL (4.8-10.8)
[2019-06-19 05:36] LABS: ANION GAP 9 mmol/L (5-15); BLOOD UREA NITROGEN 10 mg/dL (7-18); CALCIUM 8.7 MG/DL (8.5-10.1); CARBON DIOXIDE 29 MMOL/L (21-32); CHLORIDE 99 MMOL/L (98-107); POTASSIUM 4.5 MMOL/L (3.5-5.1); SODIUM 136 MMOL/L (136-145)
[2019-06-19] MEDS: D5 1/2NS 1,000 ML IV SCH (06:05)
--- NOTE | 2019-06-19 06:39 | 48 Hour Post Anesthesia Eval ---
Post Anesthesia Evaluation Procedure: VATS Date of Evaluation: Jun 19, 2019 Time of Evaluation: 06:36 Blood Pressure Systolic: 104 0: 75 Pulse Rate: 116 Respiratory Rate: 19 Temperature (Fahrenheit): 101.2 O2 Sat by Pulse Oximetry: 96 Airway: patent Nausea: No Vomiting: No Pain Intensity: 2 Cardiopulmonary Status: Stable Mental Status/LOC: other - Intubated Follow-up Care/Observations: 0 Post-Anesthesia Complications: 0 Gabriel Artis MD Jun 19, 2019 06:39
[2019-06-19] MEDS: Heparin 5000 units/ml inj SUBQ SCH ×2 (08:42→21:09)
--- NOTE | 2019-06-19 10:55 | Infectious Diseases Prog Note ---
"Assessment/Plan Assessment/Plan antibiotics : vancomycin iv, ceftriaxone, flagyl A 1. empyema s/p VATS | decortication 2. pneumonia 3. leucocytosis improving 4. fever improving P 1. continue iv vancomycin, ceftriaxone, flagyl 2. will follow up cultures Subjective Constitutional: Denies: fever, chills Respiratory: Denies: shortness of breath, dry cough Gastrointestinal/Abdominal: Denies: nausea, vomiting, diarrhea Musculoskeletal: Reports: pain Allergies: Coded Allergies: No Known Allergies (Unverified , 06/09/19) Objective Vital Signs Last 24 Hour Vital Signs Date Time Temp Pulse Resp B/P (MAP) Pulse Ox O2 Delivery O2 Flow Rate FiO2 06/19/19 09:30 119 39 112/69 (83) 97 06/19/19 09:00 125 30 110/66 (81) 96 06/19/19 09:00 97 Venturi Mask 6.0 30 06/19/19 09:00 4.0 06/19/19 08:58 127 33 30 40 06/19/19 08:57 97 06/19/19 08:30 128 36 117/72 (87) 97 06/19/19 08:00 101.6 141 33 116/78 (91) 97 06/19/19 07:23 127 33 30 40 06/19/19 07:00 125 20 106/75 (85) 97 06/19/19 07:00 30 06/19/19 06:44 129 24 40 06/19/19 06:39 116 19 96 06/19/19 06:22 101.2 06/19/19 06:00 116 19 104/75 (85) 96 06/19/19 05:03 118 19 40 06/19/19 05:00 114 16 108/74 (85) 96 06/19/19 04:00 30 06/19/19 04:00 100.0 143 30 92/60 (71) 100 06/19/19 04:00 110 06/19/19 03:00 105 16 105/58 (74) 98 06/19/19 02:40 112 23 40 06/19/19 02:00 107 16 106/76 (86) 98 06/19/19 01:27 104 16 40 06/19/19 01:00 109 18 120/79 (93) 99 06/19/19 00:00 50 06/19/19 00:00 108 06/19/19 00:00 99.2 112 16 112/65 (81) 98 06/18/19 23:56 114 18 40 06/18/19 23:00 109 18 112/74 (87) 99 06/18/19 22:00 107 17 111/70 (84) 99 06/18/19 21:19 119 15 60 06/18/19 21:00 127 28 125/69 (87) 99 06/18/19 20:00 142 06/18/19 20:00 Mechanical Ventilator 06/18/19 20:00 70 06/18/19 20:00 98.5 131 22 97/66 (76) 99 06/18/19 19:50 140 27 80 06/18/19 19:30 121 19 118/71 (87) 100 06/18/19 19:00 100 06/18/19 19:00 117 14 106/64 (78) 99 06/18/19 18:00 144 22 109/59 (76) 98 06/18/19 17:00 144 22 119/65 (83) 98 06/18/19 16:45 140 14 100 06/18/19 16:40 141 14 98 Mechanical Ventilator 100 06/18/19 16:39 144 20 97 06/18/19 16:30 98.6 142 14 142/103 (116) 98 06/18/19 16:30 Mechanical Ventilator Mechanical Ventilator Mechanical Ventilator 06/18/19 16:00 124 06/18/19 12:00 99.5 101 19 104/59 (74) 97 06/18/19 12:00 115 Height (Feet): 5 Height (Inches): 10.00 Weight (Pounds): 250 Respiratory/Chest: lungs clear, other - left chest Cardiovascular: normal rate, regular rhythm, no gallop/murmur Abdomen: soft, non tender Extremities: no edema Microbiology Date/Time Source Procedure Growth Status 06/18/19 17:03 Other Gram Stain Pending Resulted 06/18/19 17:03 Other Aerobic Culture - Preliminary NO GROWTH Resulted 06/18/19 17:03 Other Anaerobic Culture Pending Resulted Laboratory Tests Test 06/18/19 16:32 06/18/19 16:48 06/18/19 19:50 06/19/19 03:15 Arterial Blood pH 7.354 (7.350-7.450) Arterial Blood Partial Pressure CO2 43.2 mmHg (35.0-45.0) Arterial Blood Partial Pressure O2 94.8 mmHg (75.0-100.0) Arterial Blood HCO3 23.5 mmol/L (22.0-26.0) Arterial Blood Oxygen Saturation 97.1 % (95-100) Arterial Blood Base Excess -2.0 (-2-2) Dat Test Positive White Blood Count 24.1 K/UL (4.8-10.8) #*H 11.8 K/UL (4.8-10.8) #H Red Blood Count 4.32 M/UL (4.70-6.10) L 4.18 M/UL (4.70-6.10) L Hemoglobin 13.1 G/DL (14.2-18.0) L 12.8 G/DL (14.2-18.0) L Hematocrit 40.3 % (42.0-52.0) L 37.4 % (42.0-52.0) L Mean Corpuscular Volume 93 FL (80-99) 89 FL (80-99) Mean Corpuscular Hemoglobin 30.2 PG (27.0-31.0) 30.7 PG (27.0-31.0) Mean Corpuscular Hemoglobin Concent 32.4 G/DL (32.0-36.0) 34.3 G/DL (32.0-36.0) Red Cell Distribution Width 13.6 % (11.6-14.8) 12.1 % (11.6-14.8) Platelet Count 602 K/UL (150-450) H 499 K/UL (150-450) H Mean Platelet Volume 6.4 FL (6.5-10.1) L 5.5 FL (6.5-10.1) L Neutrophils (%) (Auto) % (45.0-75.0) 83.9 % (45.0-75.0) H Lymphocytes (%) (Auto) % (20.0-45.0) 4.0 % (20.0-45.0) L Monocytes (%) (Auto) % (1.0-10.0) 11.5 % (1.0-10.0) H Eosinophils (%) (Auto) % (0.0-3.0) 0.0 % (0.0-3.0) Basophils (%) (Auto) % (0.0-2.0) 0.6 % (0.0-2.0) Differential Total Cells Counted 100 Neutrophils % (Manual) 75 % (45-75) Lymphocytes % (Manual) 5 % (20-45) L Monocytes % (Manual) 7 % (1-10) Eosinophils % (Manual) 0 % (0-3) Basophils % (Manual) 2 % (0-2) Band Neutrophils 11 % (0-8) H Platelet Estimate Increased H Platelet Morphology Normal Red Blood Cell Morphology Normal Sodium Level 133 MMOL/L (136-145) L 139 MMOL/L (136-145) 136 MMOL/L (136-145) Potassium Level 5.8 MMOL/L (3.5-5.1) H 5.2 MMOL/L (3.5-5.1) H 4.5 MMOL/L (3.5-5.1) Chloride Level 98 MMOL/L (98-107) 100 MMOL/L (98-107) 99 MMOL/L (98-107) Carbon Dioxide Level 24 MMOL/L (21-32) 23 MMOL/L (21-32) 29 MMOL/L (21-32) Anion Gap 11 mmol/L (5-15) 16 mmol/L (5-15) H 9 mmol/L (5-15) Blood Urea Nitrogen 10 mg/dL (7-18) 11 mg/dL (7-18) 10 mg/dL (7-18) Creatinine 1.2 MG/DL (0.55-1.30) 1.4 MG/DL (0.55-1.30) H 1.0 MG/DL (0.55-1.30) Estimat Glomerular Filtration Rate > 60 mL/min (>60) > 60 mL/min (>60) > 60 mL/min (>60) Glucose Level 223 MG/DL (74-106) #H 261 MG/DL (74-106) H 167 MG/DL (74-106) H Calcium Level 9.1 MG/DL (8.5-10.1) 8.9 MG/DL (8.5-10.1) 8.7 MG/DL (8.5-10.1) Ionized Calcium (Measured) 1.08 mmol/L (1.10-1.35) L 1.05 mmol/L (1.10-1.35) L Phosphorus Level 5.4 MG/DL (2.5-4.9) H Magnesium Level 2.0 MG/DL (1.8-2.4) 2.2 MG/DL (1.8-2.4) Vancomycin Level Trough 7.4 ug/mL (5.0-12.0) Test 06/19/19 10:03 Vancomycin Level Trough Pending Current Medications Medications (Trade) Dose Ordered Sig/Thiago Route PRN Reason Start Time Stop Time Status Last Admin Dose Admin Acetaminophen (Tylenol) 650 mg Q6H PRN ORAL Mild Pain/Temp > 100.5 06/18/19 17:00 07/10/19 16:59 06/19/19 10:51 Ceftriaxone Sodium 1 gm/ Dextrose 55 ml @ 110 mls/hr Q24H IVPB 06/18/19 21:00 06/25/19 20:59 06/18/19 21:05 Diphenhydramine HCl (Benadryl) 25 mg Q6H PRN ORAL itching 06/18/19 17:00 07/10/19 16:59 Guaifenesin (Robitussin) 300 mg Q4H PRN ORAL For Cough 06/18/19 17:00 07/13/19 16:59 Heparin Sodium (Porcine) (Heparin 5000 units/ml) 5,000 units EVERY 12 HOURS SUBQ 06/18/19 21:00 07/10/19 08:59 06/19/19 08:42 Labetalol HCl (Normodyne) 10 mg Q4H PRN IV HR >100 bpm 06/18/19 19:15 07/18/19 19:14 Lorazepam (Ativan 2mg/ml 1ml) 2 mg Q2H PRN IV Restlessness 06/18/19 19:30 06/25/19 19:29 06/18/19 23:13 Metronidazole 100 ml @ 100 mls/hr Q8H IVPB 06/18/19 20:00 06/25/19 11:59 06/19/19 04:20 Morphine Sulfate (Morphine Sulfate) 2 mg Q4H PRN IVP PAIN 4-10 06/18/19 19:30 06/25/19 19:29 06/19/19 04:23 Ondansetron HCl (Zofran) 4 mg Q6H PRN IVP Nausea & Vomiting 06/18/19 17:00 07/10/19 16:59 Vancomycin HCl (Vanco rx to dose) 1 ea DAILY PRN MISC Vanco per Rx 06/18/19 17:00 07/18/19 16:59 Vancomycin/Sodium Chloride 275 ml @ 183.333 mls/hr Q6H IVPB 06/18/19 17:00 06/22/19 22:59 06/19/19 10:50 Ishan Foster MD Jun 19, 2019 10:55"
--- NOTE | 2019-06-19 10:56 | Diagnostic Imaging Report ---
Indication: Dyspnea Technique: One view of the chest Comparison: 06/18/2019 Findings: Endotracheal tube, left chest tube, tiny left apical pneumothorax, left chest perihilar parenchymal opacities are unchanged. There is less optimal inspiration with some crowding of the bronchovascular markings on the right. Subcutaneous emphysema has decreased somewhat. Impression: Decreased subcutaneous emphysema. Otherwise little change consultant one day, allowing for differences in degree of inspiration
--- NOTE | 2019-06-19 12:35 | Surgery Progress Note ---
Surgery Progress Note Subjective Symptoms: improved Additional Comments extubated labs improving no air leak doing well Objective Last 24 Hour Vital Signs Date Time Temp Pulse Resp B/P (MAP) Pulse Ox O2 Delivery O2 Flow Rate FiO2 06/19/19 09:30 119 39 112/69 (83) 97 06/19/19 09:00 125 30 110/66 (81) 96 06/19/19 09:00 97 Venturi Mask 6.0 30 06/19/19 09:00 4.0 06/19/19 08:58 127 33 30 40 06/19/19 08:57 97 06/19/19 08:30 128 36 117/72 (87) 97 06/19/19 08:00 101.6 141 33 116/78 (91) 97 06/19/19 07:23 127 33 30 40 06/19/19 07:00 125 20 106/75 (85) 97 06/19/19 07:00 30 06/19/19 06:44 129 24 40 06/19/19 06:39 116 19 96 06/19/19 06:22 101.2 06/19/19 06:00 116 19 104/75 (85) 96 06/19/19 05:03 118 19 40 06/19/19 05:00 114 16 108/74 (85) 96 06/19/19 04:00 30 06/19/19 04:00 100.0 143 30 92/60 (71) 100 06/19/19 04:00 110 06/19/19 03:00 105 16 105/58 (74) 98 06/19/19 02:40 112 23 40 06/19/19 02:00 107 16 106/76 (86) 98 06/19/19 01:27 104 16 40 06/19/19 01:00 109 18 120/79 (93) 99 06/19/19 00:00 50 06/19/19 00:00 108 06/19/19 00:00 99.2 112 16 112/65 (81) 98 06/18/19 23:56 114 18 40 06/18/19 23:00 109 18 112/74 (87) 99 06/18/19 22:00 107 17 111/70 (84) 99 06/18/19 21:19 119 15 60 06/18/19 21:00 127 28 125/69 (87) 99 06/18/19 20:00 142 06/18/19 20:00 Mechanical Ventilator 06/18/19 20:00 70 06/18/19 20:00 98.5 131 22 97/66 (76) 99 06/18/19 19:50 140 27 80 06/18/19 19:30 121 19 118/71 (87) 100 06/18/19 19:00 100 06/18/19 19:00 117 14 106/64 (78) 99 06/18/19 18:00 144 22 109/59 (76) 98 06/18/19 17:00 144 22 119/65 (83) 98 06/18/19 16:45 140 14 100 06/18/19 16:40 141 14 98 Mechanical Ventilator 100 06/18/19 16:39 144 20 97 06/18/19 16:30 98.6 142 14 142/103 (116) 98 06/18/19 16:30 Mechanical Ventilator Mechanical Ventilator Mechanical Ventilator 06/18/19 16:00 124 I&O Intake and Output 06/18/19 06/19/19 19:00 07:00 Intake Total 325.000 ml 1905.00 ml Output Total 425 ml 1230 ml Balance -100.000 ml 675.00 ml IV Total 325.000 ml 1905.00 ml Output Urine Total 425 ml 1075 ml Chest Tube Drainage Total 155 ml Dressing: other Wound: other Drains: other Cardiovascular: RSR Respiratory: clear Abdomen: soft, non-tender, present bowel sounds Extremities: no edema, no tenderness, no cyanosis Laboratory Tests Test 06/18/19 16:32 06/18/19 16:48 06/18/19 19:50 06/19/19 03:15 Arterial Blood pH 7.354 (7.350-7.450) Arterial Blood Partial Pressure CO2 43.2 mmHg (35.0-45.0) Arterial Blood Partial Pressure O2 94.8 mmHg (75.0-100.0) Arterial Blood HCO3 23.5 mmol/L (22.0-26.0) Arterial Blood Oxygen Saturation 97.1 % (95-100) Arterial Blood Base Excess -2.0 (-2-2) Dat Test Positive White Blood Count 24.1 K/UL (4.8-10.8) #*H 11.8 K/UL (4.8-10.8) #H Red Blood Count 4.32 M/UL (4.70-6.10) L 4.18 M/UL (4.70-6.10) L Hemoglobin 13.1 G/DL (14.2-18.0) L 12.8 G/DL (14.2-18.0) L Hematocrit 40.3 % (42.0-52.0) L 37.4 % (42.0-52.0) L Mean Corpuscular Volume 93 FL (80-99) 89 FL (80-99) Mean Corpuscular Hemoglobin 30.2 PG (27.0-31.0) 30.7 PG (27.0-31.0) Mean Corpuscular Hemoglobin Concent 32.4 G/DL (32.0-36.0) 34.3 G/DL (32.0-36.0) Red Cell Distribution Width 13.6 % (11.6-14.8) 12.1 % (11.6-14.8) Platelet Count 602 K/UL (150-450) H 499 K/UL (150-450) H Mean Platelet Volume 6.4 FL (6.5-10.1) L 5.5 FL (6.5-10.1) L Neutrophils (%) (Auto) % (45.0-75.0) 83.9 % (45.0-75.0) H Lymphocytes (%) (Auto) % (20.0-45.0) 4.0 % (20.0-45.0) L Monocytes (%) (Auto) % (1.0-10.0) 11.5 % (1.0-10.0) H Eosinophils (%) (Auto) % (0.0-3.0) 0.0 % (0.0-3.0) Basophils (%) (Auto) % (0.0-2.0) 0.6 % (0.0-2.0) Differential Total Cells Counted 100 Neutrophils % (Manual) 75 % (45-75) Lymphocytes % (Manual) 5 % (20-45) L Monocytes % (Manual) 7 % (1-10) Eosinophils % (Manual) 0 % (0-3) Basophils % (Manual) 2 % (0-2) Band Neutrophils 11 % (0-8) H Platelet Estimate Increased H Platelet Morphology Normal Red Blood Cell Morphology Normal Sodium Level 133 MMOL/L (136-145) L 139 MMOL/L (136-145) 136 MMOL/L (136-145) Potassium Level 5.8 MMOL/L (3.5-5.1) H 5.2 MMOL/L (3.5-5.1) H 4.5 MMOL/L (3.5-5.1) Chloride Level 98 MMOL/L (98-107) 100 MMOL/L (98-107) 99 MMOL/L (98-107) Carbon Dioxide Level 24 MMOL/L (21-32) 23 MMOL/L (21-32) 29 MMOL/L (21-32) Anion Gap 11 mmol/L (5-15) 16 mmol/L (5-15) H 9 mmol/L (5-15) Blood Urea Nitrogen 10 mg/dL (7-18) 11 mg/dL (7-18) 10 mg/dL (7-18) Creatinine 1.2 MG/DL (0.55-1.30) 1.4 MG/DL (0.55-1.30) H 1.0 MG/DL (0.55-1.30) Estimat Glomerular Filtration Rate > 60 mL/min (>60) > 60 mL/min (>60) > 60 mL/min (>60) Glucose Level 223 MG/DL (74-106) #H 261 MG/DL (74-106) H 167 MG/DL (74-106) H Calcium Level 9.1 MG/DL (8.5-10.1) 8.9 MG/DL (8.5-10.1) 8.7 MG/DL (8.5-10.1) Ionized Calcium (Measured) 1.08 mmol/L (1.10-1.35) L 1.05 mmol/L (1.10-1.35) L Phosphorus Level 5.4 MG/DL (2.5-4.9) H Magnesium Level 2.0 MG/DL (1.8-2.4) 2.2 MG/DL (1.8-2.4) Vancomycin Level Trough 7.4 ug/mL (5.0-12.0) Test 06/19/19 10:03 Vancomycin Level Trough 17.0 ug/mL (5.0-12.0) H Plan Problems: (1) Pleural effusion Assessment & Plan: Pulmonary arteries: Normal enhancement of the vascular structures were no filling defect to suggest pulmonary embolus or aortic dissection. Normal aorta with no aneurysmal dilatation. Aorta: No acute findings. No thoracic aortic aneurysm. Lungs: Lung ibarra reveal minimal posterior subpleural scarring versus atelectasis otherwise normal right hemithorax. Pleural space: There is a loculated left-sided pleural effusion with left lower lobe consolidation and air bronchograms consistent with pneumonia. There is left posterior, left paraspinal, subpleural atelectasis or mass seen on images 104 through 124. Remainder of the left lung field including left upper lobe are clear. Heart: Unremarkable. No cardiomegaly. No significant pericardial effusion. No evidence of RV dysfunction. Bones/joints: No acute fracture. No dislocation. Soft tissues: Unremarkable. Lymph nodes: Unremarkable. No enlarged lymph nodes. Upper abdomen: Diffuse fatty liver. Diverticulosis of the colon with no signs of diverticulitis. The remainder of the visualized upper abdominal structures are unremarkable. IMPRESSION: 1. No pulmonary embolus or aortic dissection. 2. Loculated left-sided pleural effusion with left lower lobe infiltrate and associated areas of atelectasis along the subpleural spaces, difficult to exclude a mass. Follow-up with CT in 3-4 months following treatment recommended to evaluate resolution. 3. Diffuse fatty liver. Diverticulosis with no signs of diverticulitis. (2) Pneumonia Assessment & Plan: IV antibiotics Okay for diet CT reviewed personally Case discussed with patient and medical teams We will plan for radiological sampling/drainage of left-sided effusion if unable to will plan for chest tube placement Discussed with radiology plan for aspiration drain placement Discussed with radiology minimal output with additional drainage since drainage placement with couple 100 cc of fairly serous output. No purulence noted. Microbiology pending. Discussed with thoracic surgery. Chest x-ray noted over the past few days remains with a large loculated effusion on the left side. Chest tube still with drainage. Dr. Darden has seen patient Thank you will follow with recommendations s/p VATS no air leak improving okay to downgrade Jeet Fallon Jun 19, 2019 12:35
--- NOTE | 2019-06-19 15:05 | Brief Operative Note ---
Immediate Post Operative Note Operative Note Pre-op Diagnosis: Left loculated pleural effusion Procedure: Exploratory, left VATS, partial pleurectomy, decortication & primary repair of upper lobe airleak Post-op Diagnosis: same Post-op Diagnosis: same as pre-op Surgeon: Adelso Financial Analyst Intern: Leeanne Anesthesiologist: Chandra Anesthesia: general Specimen: yes Complications: none Condition: stable Fluids: per anesthesia record Estimated Blood Loss: minimal Drains: other Implant(s) used?: No Ugo Darden MD Jun 19, 2019 15:05
--- NOTE | 2019-06-19 17:04 | General Progress Note ---
Assessment/Plan Assessment/Plan: tachycardia loculated pleural effusion s/p drainage and catheter placement pneumonia leukocytosis acute respiratory failure s/p VATS PLAN iv antibiotics continue as is ID clearance transfer to floor impression, plan, and exam edited and reviewed in detail care discussed with RN Subjective Allergies: Coded Allergies: No Known Allergies (Unverified , 06/09/19) Subjective care noted post vats now extubated ID noted Objective Last 24 Hour Vital Signs Date Time Temp Pulse Resp B/P (MAP) Pulse Ox O2 Delivery O2 Flow Rate FiO2 06/19/19 16:00 120 06/19/19 14:00 99.0 114 34 98/56 (70) 98 06/19/19 13:00 121 29 105/68 (80) 98 06/19/19 12:00 101.9 120 28 77/65 (69) 99 06/19/19 12:00 2.0 06/19/19 12:00 119 06/19/19 11:21 101.9 06/19/19 11:00 125 29 111/54 (73) 98 06/19/19 10:00 123 30 100/65 (77) 98 06/19/19 09:30 119 39 112/69 (83) 97 06/19/19 09:00 125 30 110/66 (81) 96 06/19/19 09:00 97 Venturi Mask 6.0 30 06/19/19 09:00 4.0 06/19/19 08:58 127 33 30 40 06/19/19 08:57 97 06/19/19 08:30 128 36 117/72 (87) 97 06/19/19 08:00 101.6 141 33 116/78 (91) 97 06/19/19 08:00 131 06/19/19 07:23 127 33 30 40 06/19/19 07:00 125 20 106/75 (85) 97 06/19/19 07:00 30 06/19/19 06:44 129 24 40 06/19/19 06:39 116 19 96 06/19/19 06:22 101.2 06/19/19 06:00 116 19 104/75 (85) 96 06/19/19 05:03 118 19 40 06/19/19 05:00 114 16 108/74 (85) 96 06/19/19 04:00 30 06/19/19 04:00 100.0 143 30 92/60 (71) 100 06/19/19 04:00 110 06/19/19 03:00 105 16 105/58 (74) 98 06/19/19 02:40 112 23 40 06/19/19 02:00 107 16 106/76 (86) 98 06/19/19 01:27 104 16 40 06/19/19 01:00 109 18 120/79 (93) 99 06/19/19 00:00 50 06/19/19 00:00 108 06/19/19 00:00 99.2 112 16 112/65 (81) 98 06/18/19 23:56 114 18 40 06/18/19 23:00 109 18 112/74 (87) 99 06/18/19 22:00 107 17 111/70 (84) 99 06/18/19 21:19 119 15 60 06/18/19 21:00 127 28 125/69 (87) 99 06/18/19 20:00 142 06/18/19 20:00 Mechanical Ventilator 06/18/19 20:00 70 06/18/19 20:00 98.5 131 22 97/66 (76) 99 06/18/19 19:50 140 27 80 06/18/19 19:30 121 19 118/71 (87) 100 06/18/19 19:00 100 06/18/19 19:00 117 14 106/64 (78) 99 06/18/19 18:00 144 22 109/59 (76) 98 Intake and Output 06/18/19 06/19/19 19:00 07:00 Intake Total 325.000 ml 1905.00 ml Output Total 425 ml 1230 ml Balance -100.000 ml 675.00 ml IV Total 325.000 ml 1905.00 ml Output Urine Total 425 ml 1075 ml Chest Tube Drainage Total 155 ml Laboratory Tests 06/18/19 19:50: Sodium Level 139, Potassium Level 5.2H, Chloride Level 100, Carbon Dioxide Level 23, Anion Gap 16H, Blood Urea Nitrogen 11, Creatinine 1.4H, Estimat Glomerular Filtration Rate > 60, Glucose Level 261H, Calcium Level 8.9 06/19/19 03:15: Sodium Level 136, Potassium Level 4.5, Chloride Level 99, Carbon Dioxide Level 29, Anion Gap 9, Blood Urea Nitrogen 10, Creatinine 1.0, Estimat Glomerular Filtration Rate > 60, Glucose Level 167H, Calcium Level 8.7, White Blood Count 11.8#H, Red Blood Count 4.18L, Hemoglobin 12.8L, Hematocrit 37.4L, Mean Corpuscular Volume 89, Mean Corpuscular Hemoglobin 30.7, Mean Corpuscular Hemoglobin Concent 34.3, Red Cell Distribution Width 12.1, Platelet Count 499H, Mean Platelet Volume 5.5L, Neutrophils (%) (Auto) 83.9H, Lymphocytes (%) (Auto) 4.0L, Monocytes (%) (Auto) 11.5H, Eosinophils (%) (Auto) 0.0, Basophils (%) ( Auto) 0.6, Ionized Calcium (Measured) 1.05L, Magnesium Level 2.2 06/19/19 10:03: Vancomycin Level Trough 17.0H Height (Feet): 5 Height (Inches): 10.00 Weight (Pounds): 250 Objective WDWN NAD reduced breath sounds bilaterally without rhonchi or wheeze S1S2RR tachy without MRG NABS nontender no HSM no CCE nonfocal extubated Lee Fish MD Jun 19, 2019 17:04
[2019-06-19] MEDS: cefTRIAXone 1 GM in D5W 55 ML IVPB SCH (21:08)
[2019-06-20] VITALS (23 sets, daily range): BP systolic 108–127; BP diastolic 60–79
[2019-06-20] MEDS: Vancomycin 1.25gm/NS Premix 275 ML IVPB SCH ×4 (05:00→23:18)
[2019-06-20 05:43] LABS: BASOPHILS % (AUTO) 0.6 % (0.0-2.0); EOSINOPHILS % (AUTO) 0.6 % (0.0-3.0); HEMATOCRIT 33.5 % (42.0-52.0); HEMOGLOBIN 11.3 G/DL (14.2-18.0); LYMPHOCYTES % (AUTO) 8.7 % (20.0-45.0); MEAN CORPUSCULAR VOLUME 89 FL (80-99); MONOCYTES % (AUTO) 12.3 % (1.0-10.0); NEUTROPHILS % (AUTO) 77.8 % (45.0-75.0); PLATELET COUNT 433 K/UL (150-450); RED BLOOD COUNT 3.77 M/UL (4.70-6.10); RED CELL DISTRIBUTION WIDTH 12.3 % (11.6-14.8); WHITE BLOOD COUNT 9.9 K/UL (4.8-10.8)
[2019-06-20 05:59] LABS: ALANINE AMINOTRANSFERASE 12 U/L (12-78); ALBUMIN 2.3 G/DL (3.4-5.0); ALBUMIN/GLOBULIN RATIO 0.5 (1.0-2.7); ALKALINE PHOSPHATASE 38 U/L (46-116); ANION GAP 8 mmol/L (5-15); ASPARTATE AMINO TRANSFERASE 22 U/L (15-37); BILIRUBIN,TOTAL 0.3 MG/DL (0.2-1.0); BLOOD UREA NITROGEN 9 mg/dL (7-18); CARBON DIOXIDE 30 MMOL/L (21-32); CHLORIDE 104 MMOL/L (98-107); CREATININE 0.9 MG/DL (0.55-1.30); POTASSIUM 3.8 MMOL/L (3.5-5.1); SODIUM 142 MMOL/L (136-145)
[2019-06-20] MEDS ORDERED: HYDROcodone/Acetamin 10/325 tab ORAL PRN (09:00)
[2019-06-20] MEDS ORDERED: Ketorolac 30mg Inj IV PRN (09:05)
[2019-06-20] MEDS: Heparin 5000 units/ml inj SUBQ SCH ×2 (09:52→20:38)
--- NOTE | 2019-06-20 10:54 | Infectious Diseases Prog Note ---
"Assessment/Plan Assessment/Plan antibiotics : vancomycin iv, ceftriaxone, flagyl A 1. empyema s/p VATS | decortication 2. pneumonia 3. leucocytosis improving 4. fever P 1. continue iv vancomycin, flagyl 2. d/c ceftriaxone 3. start cefepime 4. will follow up cultures Subjective Constitutional: Denies: fever, chills Respiratory: Reports: productive cough - mild; Denies: shortness of breath Gastrointestinal/Abdominal: Denies: nausea, vomiting, diarrhea - mild Musculoskeletal: Reports: pain - decreased Allergies: Coded Allergies: No Known Allergies (Unverified , 06/09/19) Objective Vital Signs Last 24 Hour Vital Signs Date Time Temp Pulse Resp B/P (MAP) Pulse Ox O2 Delivery O2 Flow Rate FiO2 06/20/19 09:00 120 25 124/64 (84) 100 06/20/19 08:00 Room Air 06/20/19 08:00 120 06/20/19 08:00 99.8 119 22 116/71 (86) 100 06/20/19 07:00 101 25 123/71 (88) 100 06/20/19 06:00 102 36 118/65 (82) 98 06/20/19 05:00 115 39 122/68 (86) 100 06/20/19 04:30 113 45 119/69 (86) 100 06/20/19 04:00 101.9 116 30 113/68 (83) 100 06/20/19 04:00 111 06/20/19 04:00 Room Air 06/20/19 03:30 106 40 127/79 (95) 100 06/20/19 03:00 115 30 127/71 (89) 99 06/20/19 02:30 110 37 121/72 (88) 100 06/20/19 02:00 100.1 105 37 112/68 (83) 97 06/20/19 01:30 107 39 108/60 (76) 98 06/20/19 01:00 105 39 111/64 (80) 99 06/20/19 00:30 104 40 113/61 (78) 100 06/20/19 00:00 99.9 109 41 109/62 (78) 100 06/20/19 00:00 Room Air 06/20/19 00:00 104 06/19/19 23:30 104 38 110/61 (77) 100 06/19/19 23:00 106 38 107/61 (76) 100 06/19/19 22:00 101.5 119 28 102/65 (77) 100 06/19/19 21:00 116 29 102/61 (75) 98 06/19/19 20:21 95 Venturi Mask 6.0 30 06/19/19 20:00 102.5 126 33 106/63 (77) 96 06/19/19 20:00 Room Air 06/19/19 20:00 126 06/19/19 19:39 102.5 06/19/19 19:01 102.7 06/19/19 19:00 136 34 103/55 (71) 97 06/19/19 18:00 124 45 93/63 (73) 99 06/19/19 17:00 123 39 105/70 (82) 06/19/19 16:00 2.0 06/19/19 16:00 Nasal Cannula 4.0 06/19/19 16:00 120 06/19/19 16:00 99.0 124 33 112/70 (84) 99 06/19/19 15:00 118 35 97/62 (74) 96 06/19/19 14:00 99.0 114 34 98/56 (70) 98 06/19/19 13:00 121 29 105/68 (80) 98 06/19/19 12:00 101.9 120 28 77/65 (69) 99 06/19/19 12:00 Nasal Cannula 4.0 06/19/19 12:00 2.0 06/19/19 12:00 119 06/19/19 11:00 125 29 111/54 (73) 98 Height (Feet): 5 Height (Inches): 10.00 Weight (Pounds): 248 Respiratory/Chest: lungs clear, other - left CT Cardiovascular: normal rate, regular rhythm, no gallop/murmur Abdomen: soft, non tender Extremities: no edema Microbiology Date/Time Source Procedure Growth Status 06/18/19 17:03 Other Gram Stain - Final Resulted 06/18/19 17:03 Other Aerobic Culture - Preliminary NO GROWTH AFTER 48 HOURS Resulted 06/18/19 17:03 Other Anaerobic Culture - Preliminary Resulted Laboratory Tests Test 06/20/19 03:30 White Blood Count 9.9 K/UL (4.8-10.8) Red Blood Count 3.77 M/UL (4.70-6.10) L Hemoglobin 11.3 G/DL (14.2-18.0) L Hematocrit 33.5 % (42.0-52.0) L Mean Corpuscular Volume 89 FL (80-99) Mean Corpuscular Hemoglobin 30.1 PG (27.0-31.0) Mean Corpuscular Hemoglobin Concent 33.9 G/DL (32.0-36.0) Red Cell Distribution Width 12.3 % (11.6-14.8) Platelet Count 433 K/UL (150-450) Mean Platelet Volume 5.5 FL (6.5-10.1) L Neutrophils (%) (Auto) 77.8 % (45.0-75.0) H Lymphocytes (%) (Auto) 8.7 % (20.0-45.0) L Monocytes (%) (Auto) 12.3 % (1.0-10.0) H Eosinophils (%) (Auto) 0.6 % (0.0-3.0) Basophils (%) (Auto) 0.6 % (0.0-2.0) Sodium Level 142 MMOL/L (136-145) Potassium Level 3.8 MMOL/L (3.5-5.1) Chloride Level 104 MMOL/L (98-107) Carbon Dioxide Level 30 MMOL/L (21-32) Anion Gap 8 mmol/L (5-15) Blood Urea Nitrogen 9 mg/dL (7-18) Creatinine 0.9 MG/DL (0.55-1.30) Estimat Glomerular Filtration Rate > 60 mL/min (>60) Glucose Level 96 MG/DL (74-106) Calcium Level 9.0 MG/DL (8.5-10.1) Total Bilirubin 0.3 MG/DL (0.2-1.0) Aspartate Amino Transf (AST/SGOT) 22 U/L (15-37) Alanine Aminotransferase (ALT/SGPT) 12 U/L (12-78) Alkaline Phosphatase 38 U/L (46-116) L Total Protein 7.1 G/DL (6.4-8.2) Albumin 2.3 G/DL (3.4-5.0) L Globulin 4.8 g/dL Albumin/Globulin Ratio 0.5 (1.0-2.7) L Current Medications Medications (Trade) Dose Ordered Sig/Thiago Route PRN Reason Start Time Stop Time Status Last Admin Dose Admin Acetaminophen (Tylenol) 650 mg Q6H PRN ORAL Mild Pain/Temp > 100.5 06/18/19 17:00 07/10/19 16:59 06/19/19 19:09 Acetaminophen/ Hydrocodone Bitart ([place] 10/325) 1 tab Q4H PRN ORAL MODERATE PAIN 06/20/19 09:00 06/27/19 08:59 Ceftriaxone Sodium 1 gm/ Dextrose 55 ml @ 110 mls/hr Q24H IVPB 06/18/19 21:00 06/25/19 20:59 06/19/19 21:08 Diphenhydramine HCl (Benadryl) 25 mg Q6H PRN ORAL itching 06/18/19 17:00 07/10/19 16:59 Guaifenesin (Robitussin) 300 mg Q4H PRN ORAL For Cough 06/18/19 17:00 07/13/19 16:59 Heparin Sodium (Porcine) (Heparin 5000 units/ml) 5,000 units EVERY 12 HOURS SUBQ 06/18/19 21:00 07/10/19 08:59 06/20/19 09:52 Ketorolac Tromethamine (Toradol 30mg) 30 mg Q6H PRN IV severe Pain 06/20/19 09:05 06/25/19 09:04 Labetalol HCl (Normodyne) 10 mg Q4H PRN IV HR >100 bpm 06/18/19 19:15 07/18/19 19:14 Lorazepam (Ativan 2mg/ml 1ml) 2 mg Q2H PRN IV Restlessness 06/18/19 19:30 06/25/19 19:29 06/18/19 23:13 Metronidazole 100 ml @ 100 mls/hr Q8H IVPB 06/18/19 20:00 06/25/19 11:59 06/19/19 19:09 Ondansetron HCl (Zofran) 4 mg Q6H PRN IVP Nausea & Vomiting 06/18/19 17:00 07/10/19 16:59 Vancomycin HCl (Vanco rx to dose) 1 ea DAILY PRN MISC Vanco per Rx 06/18/19 17:00 07/18/19 16:59 Vancomycin/Sodium Chloride 275 ml @ 183.333 mls/hr Q6H IVPB 06/18/19 17:00 06/22/19 22:59 06/19/19 22:11 Ishan Foster MD Jun 20, 2019 10:54"
[2019-06-20] MEDS: Cefepime HCl 2 GM in D5W 55 ML IVPB SCH ×2 (12:19→22:36)
--- NOTE | 2019-06-20 12:55 | Surgery Progress Note ---
Surgery Progress Note Subjective Symptoms: improved, tolerating diet, voiding well, pain decreased Objective Last 24 Hour Vital Signs Date Time Temp Pulse Resp B/P (MAP) Pulse Ox O2 Delivery O2 Flow Rate FiO2 06/20/19 12:09 Room Air 06/20/19 12:00 120 21 127/62 (83) 92 06/20/19 12:00 115 06/20/19 11:00 123 24 125/65 (85) 92 06/20/19 10:00 122 26 113/72 (86) 92 06/20/19 09:40 94 Room Air 21 06/20/19 09:00 120 25 124/64 (84) 100 06/20/19 08:00 Room Air 06/20/19 08:00 120 06/20/19 08:00 99.8 119 22 116/71 (86) 100 06/20/19 07:00 101 25 123/71 (88) 100 06/20/19 06:00 102 36 118/65 (82) 98 06/20/19 05:00 115 39 122/68 (86) 100 06/20/19 04:30 113 45 119/69 (86) 100 06/20/19 04:00 101.9 116 30 113/68 (83) 100 06/20/19 04:00 111 06/20/19 04:00 Room Air 06/20/19 03:30 106 40 127/79 (95) 100 06/20/19 03:00 115 30 127/71 (89) 99 06/20/19 02:30 110 37 121/72 (88) 100 06/20/19 02:00 100.1 105 37 112/68 (83) 97 06/20/19 01:30 107 39 108/60 (76) 98 06/20/19 01:00 105 39 111/64 (80) 99 06/20/19 00:30 104 40 113/61 (78) 100 06/20/19 00:00 99.9 109 41 109/62 (78) 100 06/20/19 00:00 Room Air 06/20/19 00:00 104 06/19/19 23:30 104 38 110/61 (77) 100 06/19/19 23:00 106 38 107/61 (76) 100 06/19/19 22:00 101.5 119 28 102/65 (77) 100 06/19/19 21:00 116 29 102/61 (75) 98 06/19/19 20:21 95 Venturi Mask 6.0 30 06/19/19 20:00 102.5 126 33 106/63 (77) 96 06/19/19 20:00 Room Air 06/19/19 20:00 126 06/19/19 19:39 102.5 06/19/19 19:01 102.7 06/19/19 19:00 136 34 103/55 (71) 97 06/19/19 18:00 124 45 93/63 (73) 99 06/19/19 17:00 123 39 105/70 (82) 06/19/19 16:00 2.0 06/19/19 16:00 Nasal Cannula 4.0 06/19/19 16:00 120 06/19/19 16:00 99.0 124 33 112/70 (84) 99 06/19/19 15:00 118 35 97/62 (74) 96 06/19/19 14:00 99.0 114 34 98/56 (70) 98 06/19/19 13:00 121 29 105/68 (80) 98 I&O Intake and Output 06/19/19 06/20/19 19:00 07:00 Intake Total 1500.832 ml 1739.168 ml Output Total 1265 ml 900 ml Balance 235.832 ml 839.168 ml Intake Oral 500 ml 1300 ml IV Total 1000.832 ml 439.168 ml Output Urine Total 1175 ml 900 ml Chest Tube Drainage Total 90 ml # Voids 2 # Bowel Movements 4 2 Dressing: dry Wound: clean Drains: other Cardiovascular: RSR Respiratory: clear Abdomen: soft, flat, non-tender, present bowel sounds Extremities: no edema, no tenderness, no cyanosis Laboratory Tests Test 06/20/19 03:30 White Blood Count 9.9 K/UL (4.8-10.8) Red Blood Count 3.77 M/UL (4.70-6.10) L Hemoglobin 11.3 G/DL (14.2-18.0) L Hematocrit 33.5 % (42.0-52.0) L Mean Corpuscular Volume 89 FL (80-99) Mean Corpuscular Hemoglobin 30.1 PG (27.0-31.0) Mean Corpuscular Hemoglobin Concent 33.9 G/DL (32.0-36.0) Red Cell Distribution Width 12.3 % (11.6-14.8) Platelet Count 433 K/UL (150-450) Mean Platelet Volume 5.5 FL (6.5-10.1) L Neutrophils (%) (Auto) 77.8 % (45.0-75.0) H Lymphocytes (%) (Auto) 8.7 % (20.0-45.0) L Monocytes (%) (Auto) 12.3 % (1.0-10.0) H Eosinophils (%) (Auto) 0.6 % (0.0-3.0) Basophils (%) (Auto) 0.6 % (0.0-2.0) Sodium Level 142 MMOL/L (136-145) Potassium Level 3.8 MMOL/L (3.5-5.1) Chloride Level 104 MMOL/L (98-107) Carbon Dioxide Level 30 MMOL/L (21-32) Anion Gap 8 mmol/L (5-15) Blood Urea Nitrogen 9 mg/dL (7-18) Creatinine 0.9 MG/DL (0.55-1.30) Estimat Glomerular Filtration Rate > 60 mL/min (>60) Glucose Level 96 MG/DL (74-106) Calcium Level 9.0 MG/DL (8.5-10.1) Total Bilirubin 0.3 MG/DL (0.2-1.0) Aspartate Amino Transf (AST/SGOT) 22 U/L (15-37) Alanine Aminotransferase (ALT/SGPT) 12 U/L (12-78) Alkaline Phosphatase 38 U/L (46-116) L Total Protein 7.1 G/DL (6.4-8.2) Albumin 2.3 G/DL (3.4-5.0) L Globulin 4.8 g/dL Albumin/Globulin Ratio 0.5 (1.0-2.7) L Plan Problems: (1) Pleural effusion Assessment & Plan: Pulmonary arteries: Normal enhancement of the vascular structures were no filling defect to suggest pulmonary embolus or aortic dissection. Normal aorta with no aneurysmal dilatation. Aorta: No acute findings. No thoracic aortic aneurysm. Lungs: Lung ibarra reveal minimal posterior subpleural scarring versus atelectasis otherwise normal right hemithorax. Pleural space: There is a loculated left-sided pleural effusion with left lower lobe consolidation and air bronchograms consistent with pneumonia. There is left posterior, left paraspinal, subpleural atelectasis or mass seen on images 104 through 124. Remainder of the left lung field including left upper lobe are clear. Heart: Unremarkable. No cardiomegaly. No significant pericardial effusion. No evidence of RV dysfunction. Bones/joints: No acute fracture. No dislocation. Soft tissues: Unremarkable. Lymph nodes: Unremarkable. No enlarged lymph nodes. Upper abdomen: Diffuse fatty liver. Diverticulosis of the colon with no signs of diverticulitis. The remainder of the visualized upper abdominal structures are unremarkable. IMPRESSION: 1. No pulmonary embolus or aortic dissection. 2. Loculated left-sided pleural effusion with left lower lobe infiltrate and associated areas of atelectasis along the subpleural spaces, difficult to exclude a mass. Follow-up with CT in 3-4 months following treatment recommended to evaluate resolution. 3. Diffuse fatty liver. Diverticulosis with no signs of diverticulitis. (2) Pneumonia Assessment & Plan: IV antibiotics Okay for diet CT reviewed personally Case discussed with patient and medical teams We will plan for radiological sampling/drainage of left-sided effusion if unable to will plan for chest tube placement Discussed with radiology plan for aspiration drain placement Discussed with radiology minimal output with additional drainage since drainage placement with couple 100 cc of fairly serous output. No purulence noted. Microbiology pending. Discussed with thoracic surgery. Chest x-ray noted over the past few days remains with a large loculated effusion on the left side. Chest tube still with drainage. Dr. Darden has seen patient Thank you will follow with recommendations s/p VATS no air leak improving okay to downgrade cxr discussed with medical teams Jeet Fallon Jun 20, 2019 12:55
[2019-06-20] MEDS ORDERED: Tubing IV Blood Pump IV ONE (14:21)
[2019-06-20] MEDS ORDERED: D5 1/2NS 1000ml IV ONE (14:21)
[2019-06-20] MEDS ORDERED: NS 275ml ONE (14:21)
[2019-06-20] MEDS ORDERED: Tubing IV Secondary IV ONE (14:21)
--- NOTE | 2019-06-20 15:24 | Diagnostic Imaging Report ---
Indication: Dyspnea Comparison: 06/19/2019 A single view chest radiograph was obtained. Findings: Left chest tube again noted. Pneumothorax is no longer seen. There is a small effusion on the left. There is infiltrate again noted in the left lower lung field. As seen previously, there are multiple dilated loops of bowel noted in the upper abdomen. IMPRESSION: Chest tube in good position. No pneumothorax. Small pleural effusion. Left pulmonary infiltrate
--- NOTE | 2019-06-20 16:43 | Pulmonolgy Critical Care Note ---
Critical Care - Asmt/Plan Assessment/Plan: Pulmonary CCM Progress Note Assessment/Plan: tachycardia persists loculated pleural effusion s/p drainage and catheter placement pneumonia leukocytosis acute respiratory failure s/p VATS PLAN iv antibiotics IVF PRN continue as is wean in am follow up cultures ID evaluation noted impression, plan, and exam edited and reviewed in detail care discussed with RN Subjective Allergies: Coded Allergies: No Known Allergies (Unverified , 06/09/19) Subjective care noted post vats ID noted Objective Vital Signs Noted Laboratory Tests Noted 06/18/19 05:57: White Blood Count 8.5, Red Blood Count 4.20L, Hemoglobin 12.9L, Hematocrit 37.7L , Mean Corpuscular Volume 90, Mean Corpuscular Hemoglobin 30.7, Mean Corpuscular Hemoglobin Concent 34.1, Red Cell Distribution Width 12.0, Platelet Count 453H, Mean Platelet Volume 5.7L, Neutrophils (%) (Auto) 72.2, Lymphocytes (%) (Auto) 9.8L, Monocytes (%) (Auto) 14.5H, Eosinophils (%) (Auto) 1.3, Basophils (%) (Auto) 2.1H, Prothrombin Time 11.3, Prothromb Time International Ratio 1.1, Activated Partial Thromboplast Time 30, Sodium Level 141, Potassium Level 4.3, Chloride Level 103, Carbon Dioxide Level 28, Anion Gap 11, Blood Urea Nitrogen 6L, Creatinine 0.9, Estimat Glomerular Filtration Rate > 60, Glucose Level 94, Calcium Level 9.3 06/18/19 16:32: Arterial Blood pH 7.354, Arterial Blood Partial Pressure CO2 43.2, Arterial Blood Partial Pressure O2 94.8, Arterial Blood HCO3 23.5, Arterial Blood Oxygen Saturation 97.1, Arterial Blood Base Excess -2.0, Dat Test Positive 06/18/19 16:48: White Blood Count 24.1#*H, Red Blood Count 4.32L, Hemoglobin 13.1L, Hematocrit 40.3L, Mean Corpuscular Volume 93, Mean Corpuscular Hemoglobin 30.2, Mean Corpuscular Hemoglobin Concent 32.4, Red Cell Distribution Width 13.6, Platelet Count 602H, Mean Platelet Volume 6.4L, Neutrophils (%) (Auto) , Lymphocytes (%) (Auto) , Monocytes (%) (Auto) , Eosinophils (%) (Auto) , Basophils (%) (Auto) , Sodium Level [Pending], Potassium Level [Pending], Chloride Level [Pending], Carbon Dioxide Level [Pending], Blood Urea Nitrogen [Pending], Creatinine [ Pending], Estimat Glomerular Filtration Rate [Pending], Glucose Level [Pending] , Calcium Level [Pending], Neutrophils % (Manual) [Pending], Lymphocytes % ( Manual) [Pending], Platelet Estimate [Pending], Platelet Morphology [Pending], Ionized Calcium (Measured) [Pending], Phosphorus Level [Pending], Magnesium Level [Pending], Vancomycin Level Trough [Pending] Height (Feet): 5 Height (Inches): 10.00 Weight (Pounds): 248 Objective WDWN Awake alert NAD reduced breath sounds bilaterally without rhonchi or wheeze Chest tube noted - no air leak S1S2RR tachy without MRG NABS nontender no HSM no CCE nonfocal Critical Care - Objective Last 24 Hour Vital Signs Date Time Temp Pulse Resp B/P (MAP) Pulse Ox O2 Delivery O2 Flow Rate FiO2 06/20/19 15:00 98.7 127 28 113/60 (77) 91 06/20/19 14:00 127 28 113/60 (77) 93 06/20/19 13:15 98.7 06/20/19 13:00 126 22 110/64 (79) 92 06/20/19 12:09 Room Air 06/20/19 12:00 120 21 127/62 (83) 92 06/20/19 12:00 102.0 06/20/19 12:00 115 06/20/19 11:00 123 24 125/65 (85) 92 06/20/19 10:00 122 26 113/72 (86) 92 06/20/19 09:40 94 Room Air 21 06/20/19 09:00 120 25 124/64 (84) 100 06/20/19 08:00 Room Air 06/20/19 08:00 120 06/20/19 08:00 99.8 119 22 116/71 (86) 100 06/20/19 07:00 101 25 123/71 (88) 100 06/20/19 06:00 102 36 118/65 (82) 98 06/20/19 05:00 115 39 122/68 (86) 100 06/20/19 04:30 113 45 119/69 (86) 100 06/20/19 04:00 101.9 116 30 113/68 (83) 100 06/20/19 04:00 111 06/20/19 04:00 Room Air 06/20/19 03:30 106 40 127/79 (95) 100 06/20/19 03:00 115 30 127/71 (89) 99 06/20/19 02:30 110 37 121/72 (88) 100 06/20/19 02:00 100.1 105 37 112/68 (83) 97 06/20/19 01:30 107 39 108/60 (76) 98 06/20/19 01:00 105 39 111/64 (80) 99 06/20/19 00:30 104 40 113/61 (78) 100 06/20/19 00:00 99.9 109 41 109/62 (78) 100 06/20/19 00:00 Room Air 06/20/19 00:00 104 06/19/19 23:30 104 38 110/61 (77) 100 06/19/19 23:00 106 38 107/61 (76) 100 06/19/19 22:00 101.5 119 28 102/65 (77) 100 06/19/19 21:00 116 29 102/61 (75) 98 06/19/19 20:21 95 Venturi Mask 6.0 30 06/19/19 20:00 102.5 126 33 106/63 (77) 96 06/19/19 20:00 Room Air 06/19/19 20:00 126 06/19/19 19:01 102.7 06/19/19 19:00 136 34 103/55 (71) 97 06/19/19 18:00 124 45 93/63 (73) 99 06/19/19 17:00 123 39 105/70 (82) Micro: Microbiology Date/Time Source Procedure Growth Status 06/18/19 17:00 Body Fluid AFB Specimen Processing Tissue - Final Resulted 06/18/19 17:00 Body Fluid Acid Fast Bacilli Smear - Final Resulted 06/18/19 17:00 Body Fluid Acid Fast Bacilli Culture Pending Resulted 06/18/19 17:03 Other Gram Stain - Final Resulted 06/18/19 17:03 Other Aerobic Culture - Preliminary NO GROWTH AFTER 48 HOURS Resulted 06/18/19 17:03 Other Anaerobic Culture - Preliminary Resulted 06/18/19 17:00 Tissue AFB Specimen Processing Tissue - Final Resulted 06/18/19 17:00 Tissue Acid Fast Bacilli Smear - Final Resulted 06/18/19 17:00 Tissue Acid Fast Bacilli Culture Pending Resulted Critical Care - Subjective ROS Limited/Unobtainable: No FI02: 21 Vent Support Breath Rate: 14 Vent Support Mode: CPAP Vent Tidal Volume: 600 Sputum Amount: Small PEEP: 3.0 PIP: 11 I&O: Intake and Output 06/19/19 06/20/19 19:00 07:00 Intake Total 1500.832 ml 1739.168 ml Output Total 1265 ml 900 ml Balance 235.832 ml 839.168 ml Intake Oral 500 ml 1300 ml IV Total 1000.832 ml 439.168 ml Output Urine Total 1175 ml 900 ml Chest Tube Drainage Total 90 ml # Voids 2 # Bowel Movements 4 2 ET-Tube: 7.5 ET Position: 23 Moody Dowd MD Jun 20, 2019 16:43
[2019-06-21] VITALS (7 sets, daily range): BP systolic 109–141; BP diastolic 56–83
[2019-06-21] MEDS: Vancomycin 1.25gm/NS Premix 275 ML IVPB SCH ×4 (05:13→23:09)
[2019-06-21 06:43] LABS: BASOPHILS % (AUTO) 0.7 % (0.0-2.0); EOSINOPHILS % (AUTO) 1.1 % (0.0-3.0); HEMATOCRIT 32.2 % (42.0-52.0); MEAN CORPUSCULAR VOLUME 88 FL (80-99); MONOCYTES % (AUTO) 10.7 % (1.0-10.0); NEUTROPHILS % (AUTO) 78.5 % (45.0-75.0); PLATELET COUNT 370 K/UL (150-450); RED BLOOD COUNT 3.64 M/UL (4.70-6.10); WHITE BLOOD COUNT 8.1 K/UL (4.8-10.8)
[2019-06-21 07:17] LABS: ALANINE AMINOTRANSFERASE 13 U/L (12-78); ALBUMIN 2.2 G/DL (3.4-5.0); ALBUMIN/GLOBULIN RATIO 0.5 (1.0-2.7); ALKALINE PHOSPHATASE 37 U/L (46-116); ANION GAP 10 mmol/L (5-15); ASPARTATE AMINO TRANSFERASE 27 U/L (15-37); BILIRUBIN,TOTAL 0.3 MG/DL (0.2-1.0); BLOOD UREA NITROGEN 7 mg/dL (7-18); CALCIUM 8.5 MG/DL (8.5-10.1); CARBON DIOXIDE 28 MMOL/L (21-32); CHLORIDE 101 MMOL/L (98-107); CREATININE 0.9 MG/DL (0.55-1.30); POTASSIUM 3.5 MMOL/L (3.5-5.1); SODIUM 139 MMOL/L (136-145)
--- NOTE | 2019-06-21 08:10 | General Progress Note ---
Assessment/Plan Assessment/Plan: tachycardia loculated pleural effusion s/p drainage and catheter placement pneumonia leukocytosis acute respiratory failure s/p VATS post op fevers sinus tachycardia PLAN iv antibiotics repeat cultures continue as is ID clearance transfer to floor impression, plan, and exam edited and reviewed in detail care discussed with RN Subjective Allergies: Coded Allergies: No Known Allergies (Unverified , 06/09/19) Subjective care noted post vats now extubated ID noted + fever Objective Last 24 Hour Vital Signs Date Time Temp Pulse Resp B/P (MAP) Pulse Ox O2 Delivery O2 Flow Rate FiO2 06/21/19 07:34 99.1 06/21/19 05:14 122 113/68 06/21/19 04:00 108 06/21/19 04:00 100.2 115 20 113/62 (79) 95 06/21/19 00:00 115 06/21/19 00:00 98.2 121 20 126/73 (90) 94 06/20/19 21:00 Room Air 06/20/19 20:00 98.9 114 20 117/61 (79) 93 06/20/19 20:00 113 06/20/19 16:53 Room Air 06/20/19 16:00 98.8 115 20 119/67 (84) 93 06/20/19 16:00 119 06/20/19 15:00 98.7 127 28 113/60 (77) 91 06/20/19 14:00 127 28 113/60 (77) 93 06/20/19 13:00 126 22 110/64 (79) 92 06/20/19 12:09 Room Air 06/20/19 12:00 120 21 127/62 (83) 92 06/20/19 12:00 102.0 06/20/19 12:00 115 06/20/19 11:00 123 24 125/65 (85) 92 06/20/19 10:00 122 26 113/72 (86) 92 06/20/19 09:40 94 Room Air 21 06/20/19 09:00 120 25 124/64 (84) 100 Intake and Output 06/20/19 06/21/19 19:00 07:00 Intake Total 1040 ml Output Total 1650 ml 500 ml Balance -610 ml -500 ml Intake Oral 1040 ml Output Urine Total 1475 ml 500 ml Stool Total 100 ml Chest Tube Drainage Total 75 ml # Bowel Movements 2 1 Laboratory Tests 06/21/19 05:24: White Blood Count 8.1, Red Blood Count 3.64L, Hemoglobin 11.0L, Hematocrit 32.2L , Mean Corpuscular Volume 88, Mean Corpuscular Hemoglobin 30.2, Mean Corpuscular Hemoglobin Concent 34.1, Red Cell Distribution Width 12.0, Platelet Count 370, Mean Platelet Volume 5.7L, Neutrophils (%) (Auto) 78.5H, Lymphocytes (%) (Auto) 9.0L, Monocytes (%) (Auto) 10.7H, Eosinophils (%) (Auto) 1.1, Basophils (%) (Auto) 0.7, Sodium Level 139, Potassium Level 3.5, Chloride Level 101, Carbon Dioxide Level 28, Anion Gap 10, Blood Urea Nitrogen 7, Creatinine 0.9, Estimat Glomerular Filtration Rate > 60, Glucose Level 97, Calcium Level 8.5, Total Bilirubin 0.3, Aspartate Amino Transf (AST/SGOT) 27, Alanine Aminotransferase (ALT/SGPT) 13, Alkaline Phosphatase 37L, Total Protein 6.8, Albumin 2.2L, Globulin 4.6, Albumin/Globulin Ratio 0.5L Height (Feet): 5 Height (Inches): 10.00 Weight (Pounds): 248 Objective WDWN NAD reduced breath sounds bilaterally without rhonchi or wheeze S1S2RR tachy without MRG NABS nontender no HSM no CCE nonfocal extubated Lee Fish MD Jun 21, 2019 08:10
[2019-06-21] MEDS: Heparin 5000 units/ml inj SUBQ SCH ×2 (09:00→21:06)
--- NOTE | 2019-06-21 10:52 | Infectious Diseases Prog Note ---
Assessment/Plan Assessment/Plan A 1. empyema s/p drainage , VATS & decortication 2. pneumonia 3. leucocytosis improving 4. Fatty liver 5. Obesity 6. Fever P 1. continue iv vancomycin, cefepime, Flagyl Subjective ROS Limited/Unobtainable: No Constitutional: Reports: fever, other - [id number] Respiratory: Reports: no symptoms Gastrointestinal/Abdominal: Reports: diarrhea Genitourinary: Reports: no symptoms Allergies: Coded Allergies: No Known Allergies (Unverified , 06/09/19) Objective Vital Signs Last 24 Hour Vital Signs Date Time Temp Pulse Resp B/P (MAP) Pulse Ox O2 Delivery O2 Flow Rate FiO2 06/21/19 08:22 95 Room Air 21 06/21/19 07:34 99.1 06/21/19 05:14 122 113/68 06/21/19 04:00 108 06/21/19 04:00 100.2 115 20 113/62 (79) 95 06/21/19 00:00 115 06/21/19 00:00 98.2 121 20 126/73 (90) 94 06/20/19 21:00 Room Air 06/20/19 20:00 98.9 114 20 117/61 (79) 93 06/20/19 20:00 113 06/20/19 16:53 Room Air 06/20/19 16:00 98.8 115 20 119/67 (84) 93 06/20/19 16:00 119 06/20/19 15:00 98.7 127 28 113/60 (77) 91 06/20/19 14:00 127 28 113/60 (77) 93 06/20/19 13:00 126 22 110/64 (79) 92 06/20/19 12:09 Room Air 06/20/19 12:00 120 21 127/62 (83) 92 06/20/19 12:00 102.0 06/20/19 12:00 115 06/20/19 11:00 123 24 125/65 (85) 92 Height (Feet): 5 Height (Inches): 10.00 Weight (Pounds): 248 General Appearance: no acute distress HEENT: mucous membranes moist Respiratory/Chest: lungs clear, other - left chest tube Cardiovascular: tachycardia Abdomen: soft, non tender Extremities: no edema Neurologic/Psychiatric: alert, oriented x 3, responsive Microbiology Date/Time Source Procedure Growth Status 06/19/19 20:10 Blood Blood Culture - Preliminary NO GROWTH AFTER 24 HOURS Resulted 06/18/19 17:00 Body Fluid AFB Specimen Processing Tissue - Final Resulted 06/18/19 17:00 Body Fluid Acid Fast Bacilli Smear - Final Resulted 06/18/19 17:00 Body Fluid Acid Fast Bacilli Culture Pending Resulted 06/18/19 17:03 Other Gram Stain - Final Resulted 06/18/19 17:03 Other Aerobic Culture - Preliminary NO GROWTH AFTER 72 HOURS Resulted 06/18/19 17:03 Other Anaerobic Culture - Preliminary NO GROWTH AFTER 72 HOURS Resulted 06/18/19 17:00 Tissue AFB Specimen Processing Tissue - Final Resulted 06/18/19 17:00 Tissue Acid Fast Bacilli Smear - Final Resulted 06/18/19 17:00 Tissue Acid Fast Bacilli Culture Pending Resulted Laboratory Tests Test 06/21/19 05:24 White Blood Count 8.1 K/UL (4.8-10.8) Red Blood Count 3.64 M/UL (4.70-6.10) L Hemoglobin 11.0 G/DL (14.2-18.0) L Hematocrit 32.2 % (42.0-52.0) L Mean Corpuscular Volume 88 FL (80-99) Mean Corpuscular Hemoglobin 30.2 PG (27.0-31.0) Mean Corpuscular Hemoglobin Concent 34.1 G/DL (32.0-36.0) Red Cell Distribution Width 12.0 % (11.6-14.8) Platelet Count 370 K/UL (150-450) Mean Platelet Volume 5.7 FL (6.5-10.1) L Neutrophils (%) (Auto) 78.5 % (45.0-75.0) H Lymphocytes (%) (Auto) 9.0 % (20.0-45.0) L Monocytes (%) (Auto) 10.7 % (1.0-10.0) H Eosinophils (%) (Auto) 1.1 % (0.0-3.0) Basophils (%) (Auto) 0.7 % (0.0-2.0) Sodium Level 139 MMOL/L (136-145) Potassium Level 3.5 MMOL/L (3.5-5.1) Chloride Level 101 MMOL/L (98-107) Carbon Dioxide Level 28 MMOL/L (21-32) Anion Gap 10 mmol/L (5-15) Blood Urea Nitrogen 7 mg/dL (7-18) Creatinine 0.9 MG/DL (0.55-1.30) Estimat Glomerular Filtration Rate > 60 mL/min (>60) Glucose Level 97 MG/DL (74-106) Calcium Level 8.5 MG/DL (8.5-10.1) Total Bilirubin 0.3 MG/DL (0.2-1.0) Aspartate Amino Transf (AST/SGOT) 27 U/L (15-37) Alanine Aminotransferase (ALT/SGPT) 13 U/L (12-78) Alkaline Phosphatase 37 U/L (46-116) L Total Protein 6.8 G/DL (6.4-8.2) Albumin 2.2 G/DL (3.4-5.0) L Globulin 4.6 g/dL Albumin/Globulin Ratio 0.5 (1.0-2.7) L Current Medications Medications (Trade) Dose Ordered Sig/Thiago Route PRN Reason Start Time Stop Time Status Last Admin Dose Admin Acetaminophen (Tylenol) 650 mg Q6H PRN ORAL Mild Pain/Temp > 100.5 06/18/19 17:00 07/10/19 16:59 06/21/19 06:24 Acetaminophen/ Hydrocodone Bitart ([place] 10/325) 1 tab Q4H PRN ORAL MODERATE PAIN 06/20/19 09:00 06/27/19 08:59 Cefepime HCl 2 gm/ Dextrose 55 ml @ 110 mls/hr Q8H IVPB 06/21/19 11:00 06/28/19 10:59 Diphenhydramine HCl (Benadryl) 25 mg Q6H PRN ORAL itching 06/18/19 17:00 07/10/19 16:59 Guaifenesin (Robitussin) 300 mg Q4H PRN ORAL For Cough 06/18/19 17:00 07/13/19 16:59 Heparin Sodium (Porcine) (Heparin 5000 units/ml) 5,000 units EVERY 12 HOURS SUBQ 06/18/19 21:00 07/10/19 08:59 06/20/19 20:38 Ketorolac Tromethamine (Toradol 30mg) 30 mg Q6H PRN IV severe Pain 06/20/19 09:05 06/25/19 09:04 Labetalol HCl (Normodyne) 10 mg Q4H PRN IV HR >100 bpm 06/18/19 19:15 07/18/19 19:14 06/21/19 05:14 Lorazepam (Ativan 2mg/ml 1ml) 2 mg Q2H PRN IV Restlessness 06/18/19 19:30 06/25/19 19:29 06/18/19 23:13 Metronidazole 100 ml @ 100 mls/hr Q8H IVPB 06/18/19 20:00 06/25/19 11:59 06/21/19 03:18 Ondansetron HCl (Zofran) 4 mg Q6H PRN IVP Nausea & Vomiting 06/18/19 17:00 07/10/19 16:59 Vancomycin HCl (Vanco rx to dose) 1 ea DAILY PRN MISC Vanco per Rx 06/18/19 17:00 07/18/19 16:59 Vancomycin/Sodium Chloride 275 ml @ 183.333 mls/hr Q6H IVPB 06/20/19 11:00 06/24/19 16:59 06/21/19 05:13 Stone Estrada MD Jun 21, 2019 10:52
[2019-06-21] MEDS: Cefepime HCl 2 GM in D5W 55 ML IVPB SCH ×2 (10:54→20:05)
--- NOTE | 2019-06-21 11:58 | Surgery Progress Note ---
Surgery Progress Note Subjective Symptoms: improved, tolerating diet, voiding well, passing flatus, BM Objective Last 24 Hour Vital Signs Date Time Temp Pulse Resp B/P (MAP) Pulse Ox O2 Delivery O2 Flow Rate FiO2 06/21/19 09:00 Room Air 06/21/19 08:22 95 Room Air 21 06/21/19 08:00 99.8 131 18 109/69 (82) 95 06/21/19 08:00 131 06/21/19 07:34 99.1 06/21/19 05:14 122 113/68 06/21/19 04:00 108 06/21/19 04:00 100.2 115 20 113/62 (79) 95 06/21/19 00:00 115 06/21/19 00:00 98.2 121 20 126/73 (90) 94 06/20/19 21:00 Room Air 06/20/19 20:00 98.9 114 20 117/61 (79) 93 06/20/19 20:00 113 06/20/19 16:53 Room Air 06/20/19 16:00 98.8 115 20 119/67 (84) 93 06/20/19 16:00 119 06/20/19 15:00 98.7 127 28 113/60 (77) 91 06/20/19 14:00 127 28 113/60 (77) 93 06/20/19 13:00 126 22 110/64 (79) 92 06/20/19 12:09 Room Air 06/20/19 12:00 120 21 127/62 (83) 92 06/20/19 12:00 102.0 06/20/19 12:00 115 I&O Intake and Output 06/20/19 06/21/19 19:00 07:00 Intake Total 1040 ml Output Total 1650 ml 500 ml Balance -610 ml -500 ml Intake Oral 1040 ml Output Urine Total 1475 ml 500 ml Stool Total 100 ml Chest Tube Drainage Total 75 ml # Bowel Movements 2 1 Dressing: dry Wound: clean Drains: other Cardiovascular: RSR Respiratory: clear Abdomen: soft, non-tender, present bowel sounds Extremities: no edema, no tenderness, no cyanosis Laboratory Tests Test 06/21/19 05:24 White Blood Count 8.1 K/UL (4.8-10.8) Red Blood Count 3.64 M/UL (4.70-6.10) L Hemoglobin 11.0 G/DL (14.2-18.0) L Hematocrit 32.2 % (42.0-52.0) L Mean Corpuscular Volume 88 FL (80-99) Mean Corpuscular Hemoglobin 30.2 PG (27.0-31.0) Mean Corpuscular Hemoglobin Concent 34.1 G/DL (32.0-36.0) Red Cell Distribution Width 12.0 % (11.6-14.8) Platelet Count 370 K/UL (150-450) Mean Platelet Volume 5.7 FL (6.5-10.1) L Neutrophils (%) (Auto) 78.5 % (45.0-75.0) H Lymphocytes (%) (Auto) 9.0 % (20.0-45.0) L Monocytes (%) (Auto) 10.7 % (1.0-10.0) H Eosinophils (%) (Auto) 1.1 % (0.0-3.0) Basophils (%) (Auto) 0.7 % (0.0-2.0) Sodium Level 139 MMOL/L (136-145) Potassium Level 3.5 MMOL/L (3.5-5.1) Chloride Level 101 MMOL/L (98-107) Carbon Dioxide Level 28 MMOL/L (21-32) Anion Gap 10 mmol/L (5-15) Blood Urea Nitrogen 7 mg/dL (7-18) Creatinine 0.9 MG/DL (0.55-1.30) Estimat Glomerular Filtration Rate > 60 mL/min (>60) Glucose Level 97 MG/DL (74-106) Calcium Level 8.5 MG/DL (8.5-10.1) Total Bilirubin 0.3 MG/DL (0.2-1.0) Aspartate Amino Transf (AST/SGOT) 27 U/L (15-37) Alanine Aminotransferase (ALT/SGPT) 13 U/L (12-78) Alkaline Phosphatase 37 U/L (46-116) L Total Protein 6.8 G/DL (6.4-8.2) Albumin 2.2 G/DL (3.4-5.0) L Globulin 4.6 g/dL Albumin/Globulin Ratio 0.5 (1.0-2.7) L Plan Problems: (1) Pleural effusion Assessment & Plan: Pulmonary arteries: Normal enhancement of the vascular structures were no filling defect to suggest pulmonary embolus or aortic dissection. Normal aorta with no aneurysmal dilatation. Aorta: No acute findings. No thoracic aortic aneurysm. Lungs: Lung ibarra reveal minimal posterior subpleural scarring versus atelectasis otherwise normal right hemithorax. Pleural space: There is a loculated left-sided pleural effusion with left lower lobe consolidation and air bronchograms consistent with pneumonia. There is left posterior, left paraspinal, subpleural atelectasis or mass seen on images 104 through 124. Remainder of the left lung field including left upper lobe are clear. Heart: Unremarkable. No cardiomegaly. No significant pericardial effusion. No evidence of RV dysfunction. Bones/joints: No acute fracture. No dislocation. Soft tissues: Unremarkable. Lymph nodes: Unremarkable. No enlarged lymph nodes. Upper abdomen: Diffuse fatty liver. Diverticulosis of the colon with no signs of diverticulitis. The remainder of the visualized upper abdominal structures are unremarkable. IMPRESSION: 1. No pulmonary embolus or aortic dissection. 2. Loculated left-sided pleural effusion with left lower lobe infiltrate and associated areas of atelectasis along the subpleural spaces, difficult to exclude a mass. Follow-up with CT in 3-4 months following treatment recommended to evaluate resolution. 3. Diffuse fatty liver. Diverticulosis with no signs of diverticulitis. (2) Pneumonia Assessment & Plan: IV antibiotics Okay for diet CT reviewed personally Case discussed with patient and medical teams We will plan for radiological sampling/drainage of left-sided effusion if unable to will plan for chest tube placement Discussed with radiology plan for aspiration drain placement Discussed with radiology minimal output with additional drainage since drainage placement with couple 100 cc of fairly serous output. No purulence noted. Microbiology pending. Discussed with thoracic surgery. Chest x-ray noted over the past few days remains with a large loculated effusion on the left side. Chest tube still with drainage. Dr. Darden has seen patient Thank you will follow with recommendations s/p VATS no air leak improving okay to downgrade cxr discussed with medical teams CT on water seal plan d/c Jeet Dietrich Jun 21, 2019 11:58
--- NOTE | 2019-06-21 12:36 | Diagnostic Imaging Report ---
Indication: Dyspnea Comparison: 06/20/2019 A single view chest radiograph was obtained. Findings: Left pulmonary infiltrate appears stable. There is a probable left pleural effusion. Chest tube noted. No pneumothorax seen. Moderate volume loss in the left lung again demonstrated. Dilated small bowel loops noted once again. 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
[2019-06-22] MEDS: Cefepime HCl 2 GM in D5W 55 ML IVPB SCH ×3 (02:09→18:37)
[2019-06-22] MEDS: Vancomycin 1.25gm/NS Premix 275 ML IVPB SCH ×3 (04:22→16:07)
[2019-06-22 04:34] VITALS: BP 116/67
[2019-06-22 08:00] VITALS: BP 118/72
--- NOTE | 2019-06-22 08:55 | General Progress Note ---
Assessment/Plan Assessment/Plan: tachycardia loculated pleural effusion s/p drainage and catheter placement pneumonia leukocytosis acute respiratory failure s/p VATS post op fevers sinus tachycardia PLAN iv antibiotics repeat cultures and follow continue as is ID clearance transfer to floor dc CT per surgery impression, plan, and exam edited and reviewed in detail care discussed with RN Subjective Allergies: Coded Allergies: No Known Allergies (Unverified , 06/09/19) Subjective care noted post vats now extubated ID noted Objective Last 24 Hour Vital Signs Date Time Temp Pulse Resp B/P (MAP) Pulse Ox O2 Delivery O2 Flow Rate FiO2 06/22/19 08:00 99.9 127 20 118/72 (87) 97 06/22/19 07:49 119 06/22/19 04:34 97.6 110 18 116/67 (83) 95 06/22/19 04:00 130 06/22/19 00:00 109 06/21/19 23:57 97.3 115 18 119/68 (85) 95 06/21/19 21:00 Room Air 06/21/19 20:00 97.7 115 18 125/56 (79) 94 06/21/19 20:00 113 06/21/19 16:00 99.5 113 20 141/64 (89) 94 06/21/19 15:14 114 06/21/19 12:00 100.1 128 17 127/83 (98) 95 06/21/19 12:00 128 06/21/19 09:00 Room Air Intake and Output 06/21/19 06/22/19 19:00 07:00 Intake Total 635.000 ml 1026.666 ml Output Total 1550 ml 950 ml Balance -915.000 ml 76.666 ml Intake Oral 360 ml 350 ml IV Total 275.000 ml 676.666 ml Output Urine Total 1550 ml 950 ml # Voids 1 # Bowel Movements 1 Height (Feet): 5 Height (Inches): 10.00 Weight (Pounds): 248 Objective WDWN NAD reduced breath sounds bilaterally without rhonchi or wheeze S1S2RR tachy without MRG NABS nontender no HSM no CCE nonfocal extubated Lee Fish MD Jun 22, 2019 08:55
[2019-06-22] MEDS: Heparin 5000 units/ml inj SUBQ SCH ×2 (09:59→20:59)
--- NOTE | 2019-06-22 10:53 | Infectious Diseases Prog Note ---
"Assessment/Plan Assessment/Plan antibiotics : vancomycin iv, cefepime, flagyl A 1. empyema s/p VATS | decortication 2. pneumonia 3. leucocytosis improving 4. fever improving P 1. continue iv vancomycin, cefepime, flagyl 2. will follow up cultures Subjective Constitutional: Denies: fever, chills Respiratory: Reports: shortness of breath - decreased, productive cough - decreased Gastrointestinal/Abdominal: Reports: diarrhea; Denies: nausea, vomiting Musculoskeletal: Reports: pain Allergies: Coded Allergies: No Known Allergies (Unverified , 06/09/19) Objective Vital Signs Last 24 Hour Vital Signs Date Time Temp Pulse Resp B/P (MAP) Pulse Ox O2 Delivery O2 Flow Rate FiO2 06/22/19 10:31 99.9 06/22/19 08:00 99.9 127 20 118/72 (87) 97 06/22/19 07:49 119 06/22/19 04:34 97.6 110 18 116/67 (83) 95 06/22/19 04:00 130 06/22/19 00:00 109 06/21/19 23:57 97.3 115 18 119/68 (85) 95 06/21/19 21:00 Room Air 06/21/19 20:00 97.7 115 18 125/56 (79) 94 06/21/19 20:00 113 06/21/19 16:00 99.5 113 20 141/64 (89) 94 06/21/19 15:14 114 06/21/19 12:00 100.1 128 17 127/83 (98) 95 06/21/19 12:00 128 Height (Feet): 5 Height (Inches): 10.00 Weight (Pounds): 248 Respiratory/Chest: lungs clear, other - left CT Cardiovascular: normal rate, regular rhythm, no gallop/murmur Abdomen: soft, non tender Extremities: no edema Microbiology Date/Time Source Procedure Growth Status 06/19/19 20:10 Blood Blood Culture - Preliminary NO GROWTH AFTER 48 HOURS Resulted Current Medications Medications (Trade) Dose Ordered Sig/Thiago Route PRN Reason Start Time Stop Time Status Last Admin Dose Admin Acetaminophen (Tylenol) 650 mg Q6H PRN ORAL Mild Pain/Temp > 100.5 06/18/19 17:00 07/10/19 16:59 06/22/19 10:01 Acetaminophen/ Hydrocodone Bitart ([place] 10/325) 1 tab Q4H PRN ORAL MODERATE PAIN 06/20/19 09:00 06/27/19 08:59 Cefepime HCl 2 gm/ Dextrose 55 ml @ 110 mls/hr Q8H IVPB 06/21/19 11:00 06/28/19 10:59 06/22/19 10:13 Diphenhydramine HCl (Benadryl) 25 mg Q6H PRN ORAL itching 06/18/19 17:00 07/10/19 16:59 Guaifenesin (Robitussin) 300 mg Q4H PRN ORAL For Cough 06/18/19 17:00 07/13/19 16:59 Heparin Sodium (Porcine) (Heparin 5000 units/ml) 5,000 units EVERY 12 HOURS SUBQ 06/18/19 21:00 07/10/19 08:59 06/22/19 09:59 Ketorolac Tromethamine (Toradol 30mg) 30 mg Q6H PRN IV severe Pain 06/20/19 09:05 06/25/19 09:04 Labetalol HCl (Normodyne) 10 mg Q4H PRN IV HR >100 bpm 06/18/19 19:15 07/18/19 19:14 06/21/19 05:14 Loperamide HCl (Imodium) 2 mg Q8H PRN ORAL Diarrhea 06/22/19 10:30 07/22/19 10:29 Lorazepam (Ativan 2mg/ml 1ml) 2 mg Q2H PRN IV Restlessness 06/18/19 19:30 06/25/19 19:29 06/18/19 23:13 Metronidazole 100 ml @ 100 mls/hr Q8H IVPB 06/18/19 20:00 06/25/19 11:59 06/22/19 03:03 Ondansetron HCl (Zofran) 4 mg Q6H PRN IVP Nausea & Vomiting 06/18/19 17:00 07/10/19 16:59 Vancomycin HCl (Vanco rx to dose) 1 ea DAILY PRN MISC Vanco per Rx 06/18/19 17:00 07/18/19 16:59 Vancomycin/Sodium Chloride 275 ml @ 183.333 mls/hr Q6H IVPB 06/20/19 11:00 06/24/19 16:59 06/22/19 04:22 Ishan Foster MD Jun 22, 2019 10:53"
--- NOTE | 2019-06-22 10:59 | Diagnostic Imaging Report ---
. Indication: Cough Technique: One view of the chest Comparison: 06/21/2019 Findings: Left chest tube, left midlung parenchymal opacity is largely unchanged. There is a small amount of residual pleural thickening still present. The right lung pleural space are clear. The heart size is normal. Impression: Unchanged, over one day, findings as above.
[2019-06-22 12:00] VITALS: BP 108/64
[2019-06-22 16:00] VITALS: BP 118/71
--- NOTE | 2019-06-22 16:11 | Surgery Progress Note ---
Surgery Progress Note Subjective Symptoms: improved Additional Comments cxr noted plan to d/c ct soon no leak Objective Last 24 Hour Vital Signs Date Time Temp Pulse Resp B/P (MAP) Pulse Ox O2 Delivery O2 Flow Rate FiO2 06/22/19 12:00 98.2 114 19 108/64 (79) 95 06/22/19 11:42 102 06/22/19 10:31 99.9 06/22/19 09:00 Room Air 06/22/19 08:00 99.9 127 20 118/72 (87) 97 06/22/19 07:49 119 06/22/19 04:34 97.6 110 18 116/67 (83) 95 06/22/19 04:00 130 06/22/19 00:00 109 06/21/19 23:57 97.3 115 18 119/68 (85) 95 06/21/19 21:00 Room Air 06/21/19 20:00 97.7 115 18 125/56 (79) 94 06/21/19 20:00 113 I&O Intake and Output 06/21/19 06/22/19 19:00 07:00 Intake Total 635.000 ml 1026.666 ml Output Total 1550 ml 950 ml Balance -915.000 ml 76.666 ml Intake Oral 360 ml 350 ml IV Total 275.000 ml 676.666 ml Output Urine Total 1550 ml 950 ml # Voids 1 # Bowel Movements 1 Dressing: other Wound: other Drains: other Cardiovascular: RSR Respiratory: decreased breath sounds Abdomen: soft, non-tender, present bowel sounds Extremities: no edema, no tenderness, no cyanosis Plan Problems: (1) Pleural effusion Assessment & Plan: Pulmonary arteries: Normal enhancement of the vascular structures were no filling defect to suggest pulmonary embolus or aortic dissection. Normal aorta with no aneurysmal dilatation. Aorta: No acute findings. No thoracic aortic aneurysm. Lungs: Lung ibarra reveal minimal posterior subpleural scarring versus atelectasis otherwise normal right hemithorax. Pleural space: There is a loculated left-sided pleural effusion with left lower lobe consolidation and air bronchograms consistent with pneumonia. There is left posterior, left paraspinal, subpleural atelectasis or mass seen on images 104 through 124. Remainder of the left lung field including left upper lobe are clear. Heart: Unremarkable. No cardiomegaly. No significant pericardial effusion. No evidence of RV dysfunction. Bones/joints: No acute fracture. No dislocation. Soft tissues: Unremarkable. Lymph nodes: Unremarkable. No enlarged lymph nodes. Upper abdomen: Diffuse fatty liver. Diverticulosis of the colon with no signs of diverticulitis. The remainder of the visualized upper abdominal structures are unremarkable. IMPRESSION: 1. No pulmonary embolus or aortic dissection. 2. Loculated left-sided pleural effusion with left lower lobe infiltrate and associated areas of atelectasis along the subpleural spaces, difficult to exclude a mass. Follow-up with CT in 3-4 months following treatment recommended to evaluate resolution. 3. Diffuse fatty liver. Diverticulosis with no signs of diverticulitis. (2) Pneumonia Assessment & Plan: IV antibiotics Okay for diet CT reviewed personally Case discussed with patient and medical teams We will plan for radiological sampling/drainage of left-sided effusion if unable to will plan for chest tube placement Discussed with radiology plan for aspiration drain placement Discussed with radiology minimal output with additional drainage since drainage placement with couple 100 cc of fairly serous output. No purulence noted. Microbiology pending. Discussed with thoracic surgery. Chest x-ray noted over the past few days remains with a large loculated effusion on the left side. Chest tube still with drainage. Dr. Darden has seen patient Thank you will follow with recommendations s/p VATS no air leak improving okay to downgrade cxr discussed with medical teams CT on water seal plan d/c Jeet Dietrich Jun 22, 2019 16:11
[2019-06-22] MEDS ORDERED: guaiFENesin 100mg/5ml Liq ud ORAL PRN (18:30)
[2019-06-22] MEDS ORDERED: DiphenhydrAMINE 25mg Tab ORAL PRN (18:30)
[2019-06-22] MEDS ORDERED: HYDROcodone/Acetamin 10/325 tab ORAL PRN (18:30)
[2019-06-22] MEDS ORDERED: Ketorolac 30mg Inj IV PRN (18:30)
[2019-06-22] MEDS ORDERED: LORazepam Inj 2mg/ml 1ml IV PRN (18:30)
[2019-06-22] MEDS ORDERED: Labetalol 5mg/ml 20ml vial IV PRN (18:30)
[2019-06-22 20:00] VITALS: BP 118/63
[2019-06-23] VITALS: BP 116/73
[2019-06-23] MEDS: Vancomycin 1.25gm/NS Premix 275 ML IVPB SCH ×3 (00:03→13:27)
[2019-06-23] MEDS: Cefepime HCl 2 GM in D5W 55 ML IVPB SCH ×3 (03:00→11:15)
[2019-06-23 04:00] VITALS: BP_SYST 115; BP_SYST 128; BP_DIAS 69; BP_DIAS 77
[2019-06-23 06:15] LABS: BASOPHILS % (AUTO) 1.1 % (0.0-2.0); EOSINOPHILS % (AUTO) 3.7 % (0.0-3.0); HEMATOCRIT 33.3 % (42.0-52.0); HEMOGLOBIN 11.2 G/DL (14.2-18.0); LYMPHOCYTES % (AUTO) 11.4 % (20.0-45.0); MEAN CORPUSCULAR VOLUME 88 FL (80-99); MONOCYTES % (AUTO) 14.9 % (1.0-10.0); NEUTROPHILS % (AUTO) 68.9 % (45.0-75.0); PLATELET COUNT 295 K/UL (150-450); RED BLOOD COUNT 3.79 M/UL (4.70-6.10); RED CELL DISTRIBUTION WIDTH 11.9 % (11.6-14.8); WHITE BLOOD COUNT 4.8 K/UL (4.8-10.8)
[2019-06-23 06:30] LABS: ALANINE AMINOTRANSFERASE 31 U/L (12-78); ALBUMIN 2.3 G/DL (3.4-5.0); ALBUMIN/GLOBULIN RATIO 0.5 (1.0-2.7); ALKALINE PHOSPHATASE 34 U/L (46-116); ANION GAP 9 mmol/L (5-15); ASPARTATE AMINO TRANSFERASE 46 U/L (15-37); BILIRUBIN,TOTAL 0.3 MG/DL (0.2-1.0); BLOOD UREA NITROGEN 3 mg/dL (7-18); CALCIUM 8.8 MG/DL (8.5-10.1); CARBON DIOXIDE 30 MMOL/L (21-32); CHLORIDE 103 MMOL/L (98-107); CREATININE 0.9 MG/DL (0.55-1.30); POTASSIUM 3.5 MMOL/L (3.5-5.1); SODIUM 142 MMOL/L (136-145)
[2019-06-23 08:00] VITALS: BP 117/75
[2019-06-23] MEDS: Heparin 5000 units/ml inj SUBQ SCH (08:34)
--- NOTE | 2019-06-23 09:19 | Diagnostic Imaging Report ---
EXAM: XR Chest, 1 View CLINICAL HISTORY: F/U TECHNIQUE: Frontal view of the chest. COMPARISON: 06/22/19 FINDINGS: Lungs: There is unchanged left basilar atelectasis. Pleural space: There is unchanged left pleural thickening. No pneumothorax or significant pleural effusion is identified. Heart: Unremarkable. No cardiomegaly. Mediastinum: Unremarkable. Bones/joints: Unremarkable. Tubes, lines and devices: There is a left-sided chest tube in unchanged position. IMPRESSION: Unchanged left basilar atelectasis. No pleural effusion or pneumothorax is identified.
[2019-06-23] MEDS ORDERED: Tubing IV Secondary IV ONE ×2 (09:38→15:24)
[2019-06-23] MEDS ORDERED: D5 1/2NS 1000ml IV ONE (09:38)
[2019-06-23] MEDS ORDERED: NS 500ML ONE (09:38)
--- NOTE | 2019-06-23 10:12 | Diagnostic Imaging Report ---
EXAM: XR Chest, 1 View CLINICAL HISTORY: Pneumothorax TECHNIQUE: Frontal view of the chest. COMPARISON: No relevant prior studies available. FINDINGS: Interval removal of the left-sided chest tube. No pneumothorax is identified. There is peripheral pleural space opacification, likely loculated pleural fluid. Persistent bilobed cavitary lesion to the left midlung. Hazy opacification about this cavity. Persistent elevation of the left hemidiaphragm. IMPRESSION: No pneumothorax after removal of left-sided chest tube. There is some presumed loculated pleural fluid about the left lung. Persistent bilobed cavitary lesion to the left midlung with adjacent hazy opacity.
[2019-06-23] MEDS ORDERED: NORCO 5-325 TA1 EAC1 ORAL (10:22)
[2019-06-23 12:00] VITALS: BP 138/84
--- NOTE | 2019-06-23 13:56 | Pulmonology Progress Note ---
Assessment/Plan Assessment/Plan Pulmonary Progress Note Assessment/Plan: loculated pleural effusion sp chest tube - now removed, feels better pneumonia leukocytosis PLAN IV antibiotics per ID DV once concerded to PO AB monitor Ct q 3 months follow up cultures impression, plan, and exam edited and reviewed in detail care discussed with RN Subjective Allergies: Coded Allergies: No Known Allergies (Unverified , 06/09/19) Subjective care noted cards appreciated Objective Vital Signs Noted Laboratory Tests Noted Height (Feet): 5 Height (Inches): 10.00 Weight (Pounds): 254 Objective WDWN NAD reduced breath sounds bilaterally [id number] no MRG NABS nontender no HSM no CCE nonfocal Subjective ROS Limited/Unobtainable: No Allergies: Coded Allergies: No Known Allergies (Unverified , 06/09/19) Objective Last 24 Hour Vital Signs Date Time Temp Pulse Resp B/P (MAP) Pulse Ox O2 Delivery O2 Flow Rate FiO2 06/23/19 12:00 99.6 111 20 138/84 (102) 95 06/23/19 09:00 Room Air 06/23/19 08:00 99.2 129 18 117/75 (89) 129 06/23/19 04:00 98.0 109 19 115/69 (84) 97 06/23/19 00:00 98.6 103 18 116/73 (87) 96 06/22/19 22:00 99.1 06/22/19 21:38 96 Room Air 21 06/22/19 21:00 Room Air 06/22/19 20:00 101.9 125 18 118/63 (81) 95 06/22/19 16:00 97.5 110 19 118/71 (87) 96 06/22/19 15:47 123 Intake and Output 06/22/19 06/23/19 19:00 07:00 Intake Total 1560.000 ml 480 ml Output Total 1850 ml Balance 1560.000 ml -1370 ml Intake Oral 480 ml IV Total 760.000 ml Other 800 ml Output Urine Total 1850 ml Chest Tube Drainage Total 0 ml # Voids 5 # Bowel Movements 4 Microbiology Date/Time Source Procedure Growth Status 06/21/19 08:30 Blood Blood Culture - Preliminary NO GROWTH AFTER 24 HOURS Resulted 06/21/19 08:30 Blood Blood Culture - Preliminary NO GROWTH AFTER 24 HOURS Resulted Laboratory Tests 06/23/19 04:50: White Blood Count 4.8, Red Blood Count 3.79L, Hemoglobin 11.2L, Hematocrit 33.3L , Mean Corpuscular Volume 88, Mean Corpuscular Hemoglobin 29.7, Mean Corpuscular Hemoglobin Concent 33.7, Red Cell Distribution Width 11.9, Platelet Count 295, Mean Platelet Volume 5.9L, Neutrophils (%) (Auto) 68.9, Lymphocytes ( %) (Auto) 11.4L, Monocytes (%) (Auto) 14.9H, Eosinophils (%) (Auto) 3.7H, Basophils (%) (Auto) 1.1, Erythrocyte Sedimentation Rate 107H, Sodium Level 142 , Potassium Level 3.5, Chloride Level 103, Carbon Dioxide Level 30, Anion Gap 9 , Blood Urea Nitrogen 3L, Creatinine 0.9, Estimat Glomerular Filtration Rate > 60, Glucose Level 102, Calcium Level 8.8, Total Bilirubin 0.3, Aspartate Amino Transf (AST/SGOT) 46H, Alanine Aminotransferase (ALT/SGPT) 31, Alkaline Phosphatase 34L, C-Reactive Protein, Quantitative 8.1H, Total Protein 6.8, Albumin 2.3L, Globulin 4.5, Albumin/Globulin Ratio 0.5L Current Medications Medications (Trade) Dose Ordered Sig/Thiago Route PRN Reason Start Time Stop Time Status Last Admin Dose Admin Acetaminophen (Tylenol) 650 mg Q6H PRN ORAL Mild Pain/Temp > 100.5 06/22/19 18:30 07/10/19 18:29 06/22/19 20:58 Acetaminophen/ Hydrocodone Bitart ([place] 10/325) 1 tab Q4H PRN ORAL MODERATE PAIN 06/22/19 18:30 06/27/19 18:29 Cefepime HCl 2 gm/ Dextrose 55 ml @ 110 mls/hr Q8H IVPB 06/22/19 19:00 06/28/19 10:59 06/23/19 11:15 Diphenhydramine HCl (Benadryl) 25 mg Q6H PRN ORAL itching 06/22/19 18:30 07/10/19 18:29 Guaifenesin (Robitussin) 300 mg Q4H PRN ORAL For Cough 06/22/19 18:30 07/13/19 18:29 Heparin Sodium (Porcine) (Heparin 5000 units/ml) 5,000 units EVERY 12 HOURS SUBQ 06/22/19 21:00 07/10/19 08:59 06/23/19 08:34 Ketorolac Tromethamine (Toradol 30mg) 30 mg Q6H PRN IV severe Pain 06/22/19 18:30 06/25/19 18:29 Loperamide HCl (Imodium) 2 mg Q8H PRN ORAL Diarrhea 06/22/19 18:30 07/22/19 10:29 06/23/19 08:09 Lorazepam (Ativan 2mg/ml 1ml) 2 mg Q2H PRN IV Restlessness 06/22/19 18:30 06/25/19 18:29 Metronidazole 100 ml @ 100 mls/hr Q8H IVPB 06/22/19 20:00 06/25/19 11:59 06/23/19 12:14 Ondansetron HCl (Zofran) 4 mg Q6H PRN IVP Nausea & Vomiting 06/22/19 18:30 07/10/19 18:29 Vancomycin HCl (Vanco rx to dose) 1 ea DAILY PRN MISC Vanco per Rx 06/22/19 18:30 07/22/19 18:29 Vancomycin/Sodium Chloride 275 ml @ 183.333 mls/hr Q6H IVPB 06/22/19 23:00 06/28/19 22:59 06/23/19 13:27 Moody Dowd MD Jun 23, 2019 13:56
--- NOTE | 2019-06-24 13:19 | Discharge Summary ---
Discharge Summary Discharge Summary _ DATE OF ADMISSION: 06/10/2019 DATE OF DISCHARGE: 06/23/2019 DISCHARGED BY: Dr. Fish/ electrical design technician, IM REASON FOR ADMISSION: 28 years old male with no significant past medical history , presented to emergency department with cough and generalized weakness. Patient reported left-sided flank pain. He denied hematuria or dysuria. He reported frequent episodes of dry nonproductive cough with intermittent clear sputum production. Patient reported generalized body aches. Symptoms persisted for 6 days. He denied any vomiting or diarrhea, no abdominal pain. upon evaluation patient was febrile and tachycardic . Pulse oximetry was stable on room air. Laboratory work-up revealed leukocytosis , stable hemoglobin , hematocrit and platelet count. Stable electrolytes and renal parameters. Lactic acid 1.4. Troponin negative, EKG revealed sinus tachycardia , no acute ischemic changes. Chest x-ray demonstrated left lower lobe pneumonia with left effusion. CTA of the chest showed no pulmonary em or aortic dissection. Loculated left- sided pleural effusion with left lower lobe infiltrate and associated area of atelectasis, difficult to exclude mass. Diffuse fatty liver. Diverticulosis without signs of diverticulitis. I In emergency department patient received IV fluid, pancultured , started on empiric antibiotics and admitted for further management. CONSULTANTS: cardiothoracic surgeon Dr. Darden airport security screener Dr. López ID specialist Dr. Foster general surgery Dr. Fallon [facility] COURSE: Patient admitted and started on antibiotic as per ID specialist recommendation. Supplemental oxygen provided and titrated to keep pulse oximetry above 92%. Pulmonary toilet with bronchodilator provided as needed. Incentive parameter was encouraged while in the bed. Follow-up chest x-ray revealed increased left loculated pleural effusion. Patient undergone CT-guided thoracentesis : small amount, approximately 50 mL , was aspirated. Pleural drainage catheter was placed to Pleur-vac drainage. Output of Pleur-vac was closely monitored . Patient was follow-up with daily chest x-ray. Antibiotic continued. Blood culture, sputum culture, pleural fluid culture were all negative. Patient had persistent leukocytosis , culminating in 24.1 on 06/17. Patient undergone on 06/17 flexible bronchoscopy with removal of the left pigtail catheter, left video-assisted thoracoscopy,, intrapleural pneumolysis, partial pleurectomy, decortication, primary repair of left upper lobe parenchymal air leak and intercostal nerve block. Patient was intubated for surgery. Patient was extubated next day. Pain management was addressed. Chest tube output was closely monitored. Supportive care provided. Pleural fluid culture obtained during surgery was negative along with AFB smear X2. Repeated blood culture on 06/18 and 06/20 were negative. Stool for C. difficile on 06/22 was negative. Cytology of left parietal pleura decortication showed benign pleural tissue with acute and chronic inflammation, necrosis and congestion. Negative for fungal organisms. Immunosuppression for AFB negative. Cytology of left upper lung lobe tissue biopsy revealed benign lung parenchyma with emphysematous changes and marked congestion. Overlying pleura with degenerative changes, congestion and acute and chronic inflammation. Cytology of left pleural fluid revealed no evidence of malignant cells. Gram stain negative. Fungal stain negative. Rare reactive epithelial cells in the background of blood and mixed inflammatory infiltrate. Patient was continued on IV fluids. Antibiotic regimen provided per ID specialist recommendation. Renal parameters and electrolytes were closely monitored. Electrolytes corrected as needed. Antipyretic provided as needed for persistent postoperative fever. Heart rate was closely monitored. Ambulation was encouraged. Incentive spirometry was encouraged while in the bed. Patient was followed-up with chest x-ray. Leukocytosis and fevers finally resolved. Chest tube was removed. Last chest x-ray showed no pneumothorax after removal of left-sided chest tube. Patient clinically improved and was ready for discharge home. FINAL DIAGNOSES: Sepsis Pneumonia Left loculated pleural effusion Empyema Status post drainage and CT-guided left chest pleural drain placement Status post VATS Acute respiratory failure Sinus tachycardia Leukocytosis-resolved Postoperative fevers -resolved DISCHARGE MEDICATIONS: See Medication Reconciliation list. DISCHARGE INSTRUCTIONS: Patient was discharged home . Follow-up with a primary care provider in 1 week. Follow-up with a surgeon as advised. I have been assigned to dictate discharge summary for this account. I was not involved in the patient's management. Roberta Dorsey NP Jun 24, 2019 13:19
== END 2019-06-23 15:30 | disposition home or self-care (01) | DRG 853 ==
LOC: EMR 22:15 → 2E 06-10 00:18 → EDBEDREQ 06-10 01:47 → ICU 06-18 16:37 → 2E 06-20 14:45 → 3E 06-22 18:15
PROC: 0W9B3ZX Drainage of Left Pleural Cavity, Percutaneous Approach, Diagnostic (ICD-10-PCS; principal; 2019-06-13)
PROC: 0W9B30Z Drainage of Left Pleural Cavity with Drainage Device, Percutaneous Approach (ICD-10-PCS; principal; 2019-06-13)
PROC: 0BBG4ZX Excision of Left Upper Lung Lobe, Percutaneous Endoscopic Approach, Diagnostic (ICD-10-PCS; 2019-06-18)
PROC: 0B978ZZ Drainage of Left Main Bronchus, Via Natural or Artificial Opening Endoscopic (ICD-10-PCS; 2019-06-18)
PROC: 0BNP4ZZ Release Left Pleura, Percutaneous Endoscopic Approach (ICD-10-PCS; 2019-06-18)
PROC: 0BCJ4ZZ Extirpation of Matter from Left Lower Lung Lobe, Percutaneous Endoscopic Approach (ICD-10-PCS; 2019-06-18)
PROC: 0BNL4ZZ Release Left Lung, Percutaneous Endoscopic Approach (ICD-10-PCS; 2019-06-18)
PROC: 0BBP4ZZ Excision of Left Pleura, Percutaneous Endoscopic Approach (ICD-10-PCS; 2019-06-18)
PROC: 0BQG4ZZ Repair Left Upper Lung Lobe, Percutaneous Endoscopic Approach (ICD-10-PCS; 2019-06-18)
DX: A41.9 Sepsis, unspecified organism (principal); J18.9 Pneumonia, unspecified organism; J86.9 Pyothorax without fistula; J96.00 Acute respiratory failure, unspecified whether with hypoxia or hypercapnia; E43 Unspecified severe protein-calorie malnutrition; J90 Pleural effusion, not elsewhere classified; R00.0 Tachycardia, unspecified; R50.82 Postprocedural fever; E86.1 Hypovolemia; E86.0 Dehydration; K76.0 Fatty (change of) liver, not elsewhere classified; Z68.35 Body mass index [BMI] 35.0-35.9, adult
CPT/HCPCS: 36415; 36600; 71045; 71275; 75989; 76942; 80048; 80053; 80202; 81003; 82248; 82330; 82550; 82553; 82803; 82962; 83605; 83735; 83880; 84100; 84484; 85007; 85025; 85610; 85651; 85730; 86140; 86710; 86850; 86900; 86901; 86920; 87040; 87070; 87075; 87116; 87205; 87324; 93005; 94002; 94003; 94150; 94664; 96361; 96365; 96367; 99285; J2405; J7030; J8499